=== PATIENT | female | born 1940 | race Caucasian/White ===

== ENCOUNTER 2017-04-08 04:04 | Inpatient (IN) | payer MEDICARE, MEDICAID ==
[2017-04-08] VITALS (10 sets, daily range): BP systolic 89–124; BP diastolic 49–94
[~2017-04-08] VITALS: Ht 154.9 cm; Wt 78.0 kg
[~2017-04-08 04:04] MED LIST: ALPR0.25 GT; APIX5TAB OR; CARV12.544 PO; FOLITAB45 OR; HYDR-4683 GT; PAR20T GT; TIOTCAP INH
[2017-04-08] MEDS ORDERED: ACETAMINOPHEN 650 MG RECT SUPP PR ONE (04:15)
[2017-04-08 05:23] LABS: Eosinophils # (auto) 0.1 uL; Eosinophils % (auto) 0.7 % (0.0-7.0); Nucleated Red Blood Cells % 0.1 %
[2017-04-08 05:27] LABS: Basophils # (auto) 0.2 uL; Hemoglobin 13.3 g/dL (12.2-16.2); Lymphocytes # (auto) 0.9 uL; Lymphocytes % (auto) 4.6 % (10.0-50.0); Mean Corpuscular Hemoglobin 25.7 pg (28.0-32.0); Mean Corpuscular Hgb Conc. 32.4 g/dL (32.0-36.0); Mean Corpuscular Volume 79.3 fL (80.0-100.0); Monocytes # (auto) 0.6 uL; Monocytes % (auto) 3.4 % (0.0-12.0); Neutrophils # (auto) 16.8 uL; Neutrophils % (auto) 90.3 % (37.0-80.0); Platelet Count (auto) 212 10^3/uL (140-450); Red Blood Cells 5.17 10^6/uL (4.0-5.20); Red Cell Distribution Width 18.5 % (11.8-14.3); White Blood Cell 18.6 10^3/uL (4.4-10.8)
[2017-04-08 05:32] LABS: Albumin 3.1 g/dL (3.4-5.0); Bilirubin, Total 0.4 mg/dL (0.2-1.0); Potassium 3.8 mmol/L (3.5-5.1)
[2017-04-08 05:51] LABS: Urine Bacteria MOD /hpf (None Seen); Urine Blood 2+ /uL (Negative); Urine Specific Gravity 1.007 (1.001-1.035); Urine WBC 199 /hpf (0 - 5); Urine WBC Clumps PRESENT /hpf (None Seen)
[2017-04-08] MEDS ORDERED: cefTRIAXone 1GM/10ml IVPUSH 10 ML IV ONE (09:30)
[2017-04-08] MEDS ORDERED: ONDANSETRON HCL 4 MG/2 ML VIAL IV PRN (09:45)
[2017-04-08] MEDS ORDERED: ALPRAZolam 0.25 MG TAB PO PRN (09:45)
[2017-04-08] MEDS ORDERED: NITROGLYCERIN 0.4 MG SL TAB SL PRN (09:45)
[2017-04-08] MEDS ORDERED: SODIUM CHLORIDE 0.9% 1,000 ML IV ONE (09:45)
[2017-04-08] MEDS ORDERED: ARTIFICIAL TEARS 15ml EACHEYE PRN (09:45)
[2017-04-08] MEDS ORDERED: MORPHINE SULFATE 10 MG/ML INJ 1ML SDV IV PRN ×2 (09:45)
[2017-04-08] MEDS ORDERED: PANTOPRAZOLE 40 MG TAB PO SCH (10:00)
[2017-04-08] MEDS: prednisoLONE ACETATE 1% OPTH SUSP 5ML RIGHTEYE SCH ×2 (10:30→22:07)
[2017-04-08] MEDS: PARoxetine 20 MG TAB PO SCH (10:30)
[2017-04-08] MEDS: APIXABAN 2.5 MG TAB GT SCH ×2 (10:30→22:07)
[2017-04-08] MEDS ORDERED: IPRA0.03 (10:41)
[2017-04-08] MEDS ORDERED: LACTCAP35 OR (10:41)
[2017-04-08] MEDS ORDERED: MULTTAB99 GT (10:41)
[2017-04-08] MEDS ORDERED: DOCU60SY PO (10:41)
[2017-04-08] MEDS ORDERED: CRAN600T OR (10:41)
[2017-04-08] MEDS ORDERED: PRED1SUS3 OP (10:41)
[2017-04-08] MEDS ORDERED: BISA-51 PO (10:41)
[2017-04-08] MEDS ORDERED: ACE30IS IN (10:41)
[2017-04-08] MEDS ORDERED: FAM20T PO (10:41)
[2017-04-08] MEDS ORDERED: AML5T PO (10:41)
[2017-04-08] MEDS ORDERED: ALBU1.257 IN (10:41)
[2017-04-08] MEDS ORDERED: MAGNSUS71 PO (10:41)
[2017-04-08] MEDS ORDERED: BIMA0.01 RIGHTEYE (10:41)
[2017-04-08] MEDS ORDERED: BRIN1SUS6 OP (10:41)
[2017-04-08] MEDS ORDERED: FOLITAB22 PO (10:41)
[2017-04-08 10:55] LABS: Cholesterol 128 mg/dL (< 200); HDL Cholesterol 48 mg/dL (40-59); LDL Cholesterol 69 mg/dL (< 100); Triglycerides 81 mg/dL (< 150)
[2017-04-08] MEDS: OMEPRAZOLE 20MG/10ML ORAL SUSP GT SCH (11:17)
[2017-04-08] MEDS: ACETYLCYSTEINE 10 %(100MG/ML) SOL 4ML NEB SCH ×2 (14:00→21:51)
[2017-04-08] MEDS ORDERED: VANCOMYCIN PER PHARMACY 0 MG IV SCH (14:45)
[2017-04-08] MEDS: IPRATROPIUM BROM 0.5 MG/2.5ML INH SOL NEB PRN ×2 (14:47→21:51)
[2017-04-08] MEDS: ALBUTEROL SULF 2.5 MG/0.5ML(0.5%) NEB SOLN NEB PRN ×2 (14:47→21:51)
[2017-04-08] MEDS: PIPERACILLIN-TAZOB 3.375GM 50 ML IV SCH ×2 (17:40→23:00)
[2017-04-08] MEDS: VANCOMYCIN 1,250 MG in D5W 5% 250 ML IV SCH (18:58)
[2017-04-09] VITALS (12 sets, daily range): BP systolic 90–121; BP diastolic 39–69
[2017-04-09 04:24] LABS: Basophils # (auto) 0.1 uL; Eosinophils # (auto) 0.3 uL; Lymphocytes # (auto) 1.1 uL; Lymphocytes % (auto) 10.5 % (10.0-50.0); Neutrophils # (auto) 8.6 uL
[2017-04-09 04:26] LABS: Basophils % (auto) 0.6 % (0.0-2.0); Eosinophils % (auto) 3.1 % (0.0-7.0); Hematocrit 35.2 % (36.0-46.0); Hemoglobin 11.4 g/dL (12.2-16.2); Mean Corpuscular Hgb Conc. 32.5 g/dL (32.0-36.0); Mean Corpuscular Volume 79.9 fL (80.0-100.0); Monocytes # (auto) 0.8 uL; Monocytes % (auto) 7.1 % (0.0-12.0); Neutrophils % (auto) 78.7 % (37.0-80.0); Platelet Count (auto) 186 10^3/uL (140-450); Red Cell Distribution Width 17.8 % (11.8-14.3)
[2017-04-09 04:39] LABS: INR 1.18 (0.9-1.15); Partial Thromboplastin Time 30.3 sec (22.64-33.71); Prothrombin Time 12.9 sec (9.37-12.3)
[2017-04-09 04:51] LABS: BUN/Creatinine Ratio 56.8; Calcium 8.5 mg/dL (8.5-10.1); Potassium 3.5 mmol/L (3.5-5.1)
[2017-04-09] MEDS: PIPERACILLIN-TAZOB 3.375GM 50 ML IV SCH ×4 (05:38→23:00)
[2017-04-09] MEDS: ACETYLCYSTEINE 10 %(100MG/ML) SOL 4ML NEB SCH ×3 (06:20→22:04)
[2017-04-09] MEDS ORDERED: cefTRIAXone 1GM/10ml IVPUSH 10 ML IV SCH (09:00)
[2017-04-09] MEDS: PARoxetine 20 MG TAB PO SCH (10:40)
[2017-04-09] MEDS: OMEPRAZOLE 20MG/10ML ORAL SUSP GT SCH (10:40)
[2017-04-09] MEDS: APIXABAN 2.5 MG TAB GT SCH ×2 (10:40→22:00)
[2017-04-09] MEDS: prednisoLONE ACETATE 1% OPTH SUSP 5ML RIGHTEYE SCH ×2 (10:40→22:00)
[2017-04-09] MEDS: ALBUTEROL SULF 2.5 MG/0.5ML(0.5%) NEB SOLN NEB PRN ×2 (14:40→22:42)
[2017-04-09] MEDS ORDERED: VANCOMYCIN 1,250 MG in D5W 5% 250 ML IV SCH (18:00)
[2017-04-09] MEDS: VANCOMYCIN 1,250 MG in D5W 5% 250 ML IV SCH (19:44)
[2017-04-09] MEDS ORDERED: LORazepam 2MG/ML-1ML VIAL IV ONE (22:00)
[2017-04-09] MEDS ORDERED: LORazepam 2MG/ML-1ML VIAL ONE (22:17)
[2017-04-09] MEDS: IPRATROPIUM BROM 0.5 MG/2.5ML INH SOL NEB PRN (22:42)
[2017-04-10] VITALS (9 sets, daily range): BP systolic 110–145; BP diastolic 35–75
[2017-04-10] MEDS: PIPERACILLIN-TAZOB 3.375GM 50 ML IV SCH ×4 (05:12→21:57)
[2017-04-10] MEDS: ALBUTEROL SULF 2.5 MG/0.5ML(0.5%) NEB SOLN NEB PRN ×3 (06:08→22:53)
[2017-04-10] MEDS: IPRATROPIUM BROM 0.5 MG/2.5ML INH SOL NEB PRN ×3 (06:09→22:53)
[2017-04-10] MEDS: ACETYLCYSTEINE 10 %(100MG/ML) SOL 4ML NEB SCH ×3 (06:09→22:53)
[2017-04-10] MEDS: prednisoLONE ACETATE 1% OPTH SUSP 5ML RIGHTEYE SCH ×2 (10:05→21:57)
[2017-04-10] MEDS: HYDROcodone-ACET 5/325MG TAB PO PRN (10:05)
[2017-04-10] MEDS: APIXABAN 2.5 MG TAB GT SCH ×2 (10:05→21:57)
[2017-04-10] MEDS: PARoxetine 20 MG TAB PO SCH (10:05)
[2017-04-10] MEDS: OMEPRAZOLE 20MG/10ML ORAL SUSP GT SCH (10:05)
[2017-04-10] MEDS: VANCOMYCIN 1,250 MG in D5W 5% 250 ML IV SCH (19:32)
[2017-04-11] MEDS: PIPERACILLIN-TAZOB 3.375GM 50 ML IV SCH (04:38)
[2017-04-11 04:53] VITALS: BP 142/57
[2017-04-11 05:46] LABS: Eosinophils # (auto) 0.3 uL; Mean Corpuscular Volume 80.2 fL (80.0-100.0); Monocytes # (auto) 0.7 uL
[2017-04-11 05:48] LABS: Basophils # (auto) 0.1 uL; Basophils % (auto) 0.7 % (0.0-2.0); Eosinophils % (auto) 2.9 % (0.0-7.0); Hematocrit 36.6 % (36.0-46.0); Hemoglobin 11.8 g/dL (12.2-16.2); Lymphocytes # (auto) 0.9 uL; Lymphocytes % (auto) 9.1 % (10.0-50.0); Mean Corpuscular Hemoglobin 25.8 pg (28.0-32.0); Mean Corpuscular Hgb Conc. 32.2 g/dL (32.0-36.0); Monocytes % (auto) 6.8 % (0.0-12.0); Neutrophils # (auto) 7.8 uL; Neutrophils % (auto) 80.5 % (37.0-80.0); Platelet Count (auto) 226 10^3/uL (140-450); Red Blood Cells 4.56 10^6/uL (4.0-5.20); White Blood Cell 9.7 10^3/uL (4.4-10.8)
[2017-04-11 06:03] LABS: BUN/Creatinine Ratio 32.6
[2017-04-11] MEDS: ACETYLCYSTEINE 10 %(100MG/ML) SOL 4ML NEB SCH ×3 (07:00→22:05)
[2017-04-11] MEDS: ALBUTEROL SULF 2.5 MG/0.5ML(0.5%) NEB SOLN NEB PRN ×3 (07:00→22:05)
[2017-04-11] MEDS: IPRATROPIUM BROM 0.5 MG/2.5ML INH SOL NEB PRN ×3 (07:00→22:05)
[2017-04-11] MEDS ORDERED: MEROPENEM 1gm/20ml IVPUSH 20 ML IV ONE (08:15)
[2017-04-11 09:00] VITALS: BP 130/75
[2017-04-11] MEDS: OMEPRAZOLE 20MG/10ML ORAL SUSP GT SCH (10:00)
[2017-04-11] MEDS: prednisoLONE ACETATE 1% OPTH SUSP 5ML RIGHTEYE SCH ×2 (10:00→22:21)
[2017-04-11] MEDS: APIXABAN 2.5 MG TAB GT SCH ×2 (11:39→22:20)
[2017-04-11] MEDS: PARoxetine 20 MG TAB PO SCH (11:39)
[2017-04-11 13:00] VITALS: BP 143/68
[2017-04-11] MEDS: MEROPENEM 1gm/20ml IVPUSH 20 ML IV SCH ×2 (14:14→22:21)
[2017-04-11 17:00] VITALS: BP 154/78
[2017-04-11] MEDS: VANCOMYCIN 1,250 MG in D5W 5% 250 ML IV SCH (17:53)
[2017-04-11] MEDS: ACETAMINOPHEN 500 MG TAB PO PRN (17:54)
[2017-04-11 18:17] LABS: Urine Bacteria FEW /hpf (None Seen); Urine Blood 2+ /uL (Negative); Urine Mucus FEW (None Seen); Urine Specific Gravity 1.022 (1.001-1.035); Urine WBC 255 /hpf (0 - 5)
[2017-04-11 20:00] VITALS: BP 135/73
[2017-04-11 22:00] VITALS: BP 135/73
[2017-04-12] VITALS (9 sets, daily range): BP systolic 129–159; BP diastolic 44–80
[2017-04-12 05:39] LABS: Basophils # (auto) 0.1 uL; Eosinophils # (auto) 0.3 uL; Monocytes # (auto) 0.7 uL
[2017-04-12 05:43] LABS: Basophils % (auto) 0.7 % (0.0-2.0); Eosinophils % (auto) 2.3 % (0.0-7.0); Hematocrit 36.9 % (36.0-46.0); Hemoglobin 11.9 g/dL (12.2-16.2); Lymphocytes # (auto) 0.9 uL; Lymphocytes % (auto) 7.9 % (10.0-50.0); Mean Corpuscular Hemoglobin 25.6 pg (28.0-32.0); Mean Corpuscular Hgb Conc. 32.1 g/dL (32.0-36.0); Mean Corpuscular Volume 79.9 fL (80.0-100.0); Monocytes % (auto) 6.5 % (0.0-12.0); Neutrophils # (auto) 9.1 uL; Neutrophils % (auto) 82.6 % (37.0-80.0); Platelet Count (auto) 232 10^3/uL (140-450); Red Blood Cells 4.62 10^6/uL (4.0-5.20); Red Cell Distribution Width 17.7 % (11.8-14.3); White Blood Cell 11.1 10^3/uL (4.4-10.8)
[2017-04-12 06:04] LABS: BUN/Creatinine Ratio 28.9
[2017-04-12 06:08] LABS: Potassium 2.8 mmol/L (3.5-5.1)
[2017-04-12] MEDS: MEROPENEM 1gm/20ml IVPUSH 20 ML IV SCH ×3 (06:19→22:20)
[2017-04-12] MEDS: ALBUTEROL SULF 2.5 MG/0.5ML(0.5%) NEB SOLN NEB PRN ×3 (06:40→22:17)
[2017-04-12] MEDS: IPRATROPIUM BROM 0.5 MG/2.5ML INH SOL NEB PRN ×3 (06:40→22:17)
[2017-04-12] MEDS: ACETYLCYSTEINE 10 %(100MG/ML) SOL 4ML NEB SCH ×3 (06:41→22:17)
[2017-04-12] MEDS ORDERED: PANTOPRAZOLE 40 MG TAB PO SCH (10:00)
[2017-04-12] MEDS: prednisoLONE ACETATE 1% OPTH SUSP 5ML RIGHTEYE SCH ×2 (10:00→22:19)
[2017-04-12] MEDS ORDERED: OMEPRAZOLE 20MG/10ML ORAL SUSP GT ONE (10:15)
[2017-04-12] MEDS: PARoxetine 20 MG TAB PO SCH (10:24)
[2017-04-12] MEDS: APIXABAN 2.5 MG TAB GT SCH ×2 (10:24→22:19)
[2017-04-12] MEDS: POTASSIUM CHL 10% (20 MEQ/15ML) 15ml ORAL SOLN GT SCH ×3 (10:24→14:32)
[2017-04-12] MEDS: Fibersource Hn 1 Liter GT SCH (10:26)
[2017-04-12] MEDS ORDERED: POTASSIUM CHL 10% (20 MEQ/15ML) 15ml ORAL SOLN PO ONE (11:00)
[2017-04-12] MEDS: HYDROcodone-ACET 5/325MG TAB PO PRN (17:31)
[2017-04-12] MEDS ORDERED: VANCOMYCIN 1GM/250ML 250 ML IV SCH (18:00)
[2017-04-12] MEDS: ACETAMINOPHEN 500 MG TAB PO PRN (22:19)
[2017-04-13 04:48] VITALS: BP 110/64
[2017-04-13] MEDS: ALBUTEROL SULF 2.5 MG/0.5ML(0.5%) NEB SOLN NEB PRN ×3 (05:51→22:05)
[2017-04-13] MEDS: IPRATROPIUM BROM 0.5 MG/2.5ML INH SOL NEB PRN ×2 (05:51→22:05)
[2017-04-13] MEDS: ACETYLCYSTEINE 10 %(100MG/ML) SOL 4ML NEB SCH ×3 (05:52→22:05)
[2017-04-13 05:56] LABS: Eosinophils # (auto) 0.2 uL; Eosinophils % (auto) 1.5 % (0.0-7.0)
[2017-04-13 05:59] LABS: Basophils # (auto) 0.1 uL; Hematocrit 37.1 % (36.0-46.0); Hemoglobin 11.9 g/dL (12.2-16.2); Lymphocytes # (auto) 1.2 uL; Lymphocytes % (auto) 8.9 % (10.0-50.0); Mean Corpuscular Hemoglobin 25.3 pg (28.0-32.0); Mean Corpuscular Volume 79.1 fL (80.0-100.0); Monocytes # (auto) 1.1 uL; Monocytes % (auto) 8.2 % (0.0-12.0); Neutrophils # (auto) 11.2 uL; Neutrophils % (auto) 80.4 % (37.0-80.0); Platelet Count (auto) 245 10^3/uL (140-450); Red Blood Cells 4.69 10^6/uL (4.0-5.20); Red Cell Distribution Width 18.2 % (11.8-14.3)
[2017-04-13] MEDS: MEROPENEM 1gm/20ml IVPUSH 20 ML IV SCH ×3 (05:59→21:12)
[2017-04-13] MEDS: HYDROcodone-ACET 5/325MG TAB PO PRN (06:00)
[2017-04-13 06:16] LABS: Calcium 9.3 mg/dL (8.5-10.1); Potassium 4.1 mmol/L (3.5-5.1)
[2017-04-13 06:19] LABS: BUN/Creatinine Ratio 32.1
[2017-04-13 09:00] VITALS: BP 110/48
[2017-04-13] MEDS: PARoxetine 20 MG TAB PO SCH (10:27)
[2017-04-13] MEDS: APIXABAN 2.5 MG TAB GT SCH ×2 (10:27→21:20)
[2017-04-13] MEDS: OMEPRAZOLE 20MG/10ML ORAL SUSP GT SCH (10:28)
[2017-04-13] MEDS: prednisoLONE ACETATE 1% OPTH SUSP 5ML RIGHTEYE SCH ×3 (10:29→21:28)
[2017-04-13 12:33] VITALS: BP 137/53
[2017-04-13 16:50] VITALS: BP 130/85
[2017-04-13 20:00] VITALS: BP 129/39
[2017-04-13 22:00] VITALS: BP 129/39
[2017-04-14 05:00] VITALS: BP 123/75
[2017-04-14] MEDS: ALBUTEROL SULF 2.5 MG/0.5ML(0.5%) NEB SOLN NEB PRN ×3 (05:40→18:16)
[2017-04-14] MEDS: ACETYLCYSTEINE 10 %(100MG/ML) SOL 4ML NEB SCH ×2 (05:40→15:26)
[2017-04-14] MEDS: MEROPENEM 1gm/20ml IVPUSH 20 ML IV SCH ×3 (06:19→22:30)
[2017-04-14 07:21] VITALS: BP 123/48
[2017-04-14 08:52] LABS: Basophils # (auto) 0.1 uL; Eosinophils # (auto) 0.4 uL; Hemoglobin 11.4 g/dL (12.2-16.2); Lymphocytes # (auto) 1.4 uL; Mean Corpuscular Hgb Conc. 31.3 g/dL (32.0-36.0)
[2017-04-14 08:53] LABS: Basophils % (auto) 0.9 % (0.0-2.0); Eosinophils % (auto) 3.3 % (0.0-7.0); Hematocrit 36.5 % (36.0-46.0); Lymphocytes % (auto) 12.2 % (10.0-50.0); Mean Corpuscular Volume 79.8 fL (80.0-100.0); Monocytes # (auto) 0.7 uL; Monocytes % (auto) 6.5 % (0.0-12.0); Neutrophils # (auto) 8.7 uL; Neutrophils % (auto) 77.1 % (37.0-80.0); Platelet Count (auto) 227 10^3/uL (140-450); Red Blood Cells 4.57 10^6/uL (4.0-5.20); Red Cell Distribution Width 18.1 % (11.8-14.3); White Blood Cell 11.3 10^3/uL (4.4-10.8)
[2017-04-14] MEDS: PARoxetine 20 MG TAB PO SCH (10:03)
[2017-04-14] MEDS: APIXABAN 2.5 MG TAB GT SCH ×2 (10:03→22:29)
[2017-04-14] MEDS: OMEPRAZOLE 20MG/10ML ORAL SUSP GT SCH (10:04)
[2017-04-14] MEDS: prednisoLONE ACETATE 1% OPTH SUSP 5ML RIGHTEYE SCH ×2 (10:04→22:30)
[2017-04-14 12:10] VITALS: BP 108/54
[2017-04-14] MEDS: HYDROcodone-ACET 5/325MG TAB PO PRN (15:14)
[2017-04-14] MEDS: IPRATROPIUM BROM 0.5 MG/2.5ML INH SOL NEB PRN ×2 (15:26→18:16)
[2017-04-14 17:01] VITALS: BP 94/68
[2017-04-14 20:58] VITALS: BP 94/68
[2017-04-14 22:15] VITALS: BP 83/43
[2017-04-15] VITALS (9 sets, daily range): BP systolic 121–142; BP diastolic 53–98
[2017-04-15] MEDS: ACETYLCYSTEINE 10 %(100MG/ML) SOL 4ML NEB SCH ×4 (00:20→21:56)
[2017-04-15] MEDS: ALBUTEROL SULF 2.5 MG/0.5ML(0.5%) NEB SOLN NEB PRN ×2 (00:24→21:56)
[2017-04-15] MEDS: IPRATROPIUM BROM 0.5 MG/2.5ML INH SOL NEB PRN ×3 (00:24→13:57)
[2017-04-15] MEDS: MEROPENEM 1gm/20ml IVPUSH 20 ML IV SCH ×4 (05:17→23:20)
[2017-04-15] MEDS: HYDROcodone-ACET 5/325MG TAB PO PRN (08:03)
[2017-04-15] MEDS: PARoxetine 20 MG TAB PO SCH (09:34)
[2017-04-15] MEDS: OMEPRAZOLE 20MG/10ML ORAL SUSP GT SCH (09:34)
[2017-04-15] MEDS: APIXABAN 2.5 MG TAB GT SCH ×2 (09:34→22:20)
[2017-04-15] MEDS: prednisoLONE ACETATE 1% OPTH SUSP 5ML RIGHTEYE SCH ×2 (09:36→22:29)
[2017-04-15] MEDS: HYDROcodone-ACET 10/325MG TAB PO PRN ×2 (13:17→17:19)
[2017-04-15] MEDS: Fibersource Hn 1 Liter GT SCH (22:00)
[2017-04-16 06:02] VITALS: BP 122/49
[2017-04-16] MEDS: ALBUTEROL SULF 2.5 MG/0.5ML(0.5%) NEB SOLN NEB PRN ×3 (07:24→19:46)
[2017-04-16] MEDS: IPRATROPIUM BROM 0.5 MG/2.5ML INH SOL NEB PRN ×2 (07:24→19:46)
[2017-04-16] MEDS: ACETYLCYSTEINE 10 %(100MG/ML) SOL 4ML NEB SCH ×3 (07:24→19:46)
[2017-04-16 09:00] VITALS: BP 143/50
[2017-04-16] MEDS: OMEPRAZOLE 20MG/10ML ORAL SUSP GT SCH (10:52)
[2017-04-16] MEDS: prednisoLONE ACETATE 1% OPTH SUSP 5ML RIGHTEYE SCH ×2 (10:52→22:50)
[2017-04-16] MEDS: APIXABAN 2.5 MG TAB GT SCH ×2 (10:52→22:50)
[2017-04-16] MEDS: PARoxetine 20 MG TAB PO SCH (10:52)
[2017-04-16 13:00] VITALS: BP 137/48
[2017-04-16] MEDS: MEROPENEM 1gm/20ml IVPUSH 20 ML IV SCH ×2 (14:22→22:50)
[2017-04-16 17:00] VITALS: BP 144/47
[2017-04-16 22:00] VITALS: BP 135/68
[2017-04-16] MEDS: ACETAMINOPHEN 500 MG TAB PO PRN (22:49)
[2017-04-17] VITALS (7 sets, daily range): BP systolic 118–141; BP diastolic 47–89
[2017-04-17] MEDS: MEROPENEM 1gm/20ml IVPUSH 20 ML IV SCH ×3 (05:27→22:01)
[2017-04-17] MEDS: ACETYLCYSTEINE 10 %(100MG/ML) SOL 4ML NEB SCH ×3 (06:09→22:22)
[2017-04-17] MEDS: ALBUTEROL SULF 2.5 MG/0.5ML(0.5%) NEB SOLN NEB PRN ×3 (06:09→22:22)
[2017-04-17] MEDS: IPRATROPIUM BROM 0.5 MG/2.5ML INH SOL NEB PRN ×3 (06:09→22:22)
[2017-04-17] MEDS: APIXABAN 2.5 MG TAB GT SCH ×2 (10:14→22:00)
[2017-04-17] MEDS: OMEPRAZOLE 20MG/10ML ORAL SUSP GT SCH (10:14)
[2017-04-17] MEDS: PARoxetine 20 MG TAB PO SCH (10:14)
[2017-04-17] MEDS: prednisoLONE ACETATE 1% OPTH SUSP 5ML RIGHTEYE SCH ×2 (10:27→22:00)
[2017-04-17] MEDS: ACETAMINOPHEN 500 MG TAB PO PRN ×2 (12:29→17:54)
[2017-04-17] MEDS: Fibersource Hn 1 Liter GT SCH (23:37)
[2017-04-18 05:00] VITALS: BP 148/66
[2017-04-18 05:33] LABS: Basophils # (auto) 0.1 uL; Hemoglobin 11.5 g/dL (12.2-16.2); Monocytes # (auto) 0.7 uL
[2017-04-18] MEDS: MEROPENEM 1gm/20ml IVPUSH 20 ML IV SCH ×3 (05:37→21:54)
[2017-04-18 05:41] LABS: Basophils % (auto) 0.6 % (0.0-2.0); Eosinophils # (auto) 0.2 uL; Eosinophils % (auto) 1.5 % (0.0-7.0); Lymphocytes # (auto) 1.2 uL; Lymphocytes % (auto) 8.2 % (10.0-50.0); Mean Corpuscular Hemoglobin 25.5 pg (28.0-32.0); Mean Corpuscular Hgb Conc. 31.9 g/dL (32.0-36.0); Mean Corpuscular Volume 79.9 fL (80.0-100.0); Monocytes % (auto) 4.6 % (0.0-12.0); Neutrophils # (auto) 12.9 uL; Neutrophils % (auto) 85.1 % (37.0-80.0); Platelet Count (auto) 250 10^3/uL (140-450); Red Blood Cells 4.51 10^6/uL (4.0-5.20); White Blood Cell 15.2 10^3/uL (4.4-10.8)
[2017-04-18 05:55] LABS: BUN/Creatinine Ratio 56.3; Calcium 8.8 mg/dL (8.5-10.1); Potassium 3.6 mmol/L (3.5-5.1)
[2017-04-18] MEDS: ACETYLCYSTEINE 10 %(100MG/ML) SOL 4ML NEB SCH ×3 (06:13→22:40)
[2017-04-18] MEDS: ALBUTEROL SULF 2.5 MG/0.5ML(0.5%) NEB SOLN NEB PRN ×3 (06:13→22:40)
[2017-04-18] MEDS: IPRATROPIUM BROM 0.5 MG/2.5ML INH SOL NEB PRN ×3 (06:13→22:40)
[2017-04-18 09:02] VITALS: BP 115/51
[2017-04-18] MEDS: PARoxetine 20 MG TAB PO SCH (11:46)
[2017-04-18] MEDS: APIXABAN 2.5 MG TAB GT SCH ×2 (11:46→21:54)
[2017-04-18] MEDS: prednisoLONE ACETATE 1% OPTH SUSP 5ML RIGHTEYE SCH ×2 (11:46→21:55)
[2017-04-18] MEDS: OMEPRAZOLE 20MG/10ML ORAL SUSP GT SCH (11:46)
[2017-04-18] MEDS: ACETAMINOPHEN 500 MG TAB PO PRN (11:48)
[2017-04-18 12:28] VITALS: BP 104/63
[2017-04-18] MEDS ORDERED: D5W/SOD CHL 0.45% 1,000 ML IV ONE (15:45)
[2017-04-18] MEDS ORDERED: VANCOMYCIN PER PHARMACY 0 MG IV SCH (15:45)
[2017-04-18] MEDS ORDERED: VANCOMYCIN 1GM/250ML 250 ML IV ONE (16:30)
[2017-04-18 17:06] VITALS: BP 122/46
[2017-04-18] MEDS ORDERED: MORPHINE SULFATE 4 MG/ML SYR/VIAL IV PRN (19:45)
[2017-04-18 22:00] VITALS: BP_SYST 106; BP_DIAS 5; BP_DIAS 59
[2017-04-19] MEDS: VANCOMYCIN 1GM/250ML 250 ML IV SCH ×2 (04:26→17:27)
[2017-04-19 05:14] VITALS: BP 119/47
[2017-04-19] MEDS: MEROPENEM 1gm/20ml IVPUSH 20 ML IV SCH ×3 (05:29→21:32)
[2017-04-19] MEDS: ALBUTEROL SULF 2.5 MG/0.5ML(0.5%) NEB SOLN NEB PRN ×3 (06:13→19:07)
[2017-04-19] MEDS: ACETYLCYSTEINE 10 %(100MG/ML) SOL 4ML NEB SCH ×3 (06:13→19:07)
[2017-04-19] MEDS: IPRATROPIUM BROM 0.5 MG/2.5ML INH SOL NEB PRN ×3 (06:13→19:07)
[2017-04-19] MEDS: HYDROcodone-ACET 10/325MG TAB PO PRN ×3 (07:25→16:15)
[2017-04-19 08:58] VITALS: BP 85/67
[2017-04-19] MEDS: APIXABAN 2.5 MG TAB GT SCH ×2 (09:55→21:32)
[2017-04-19] MEDS: prednisoLONE ACETATE 1% OPTH SUSP 5ML RIGHTEYE SCH ×2 (09:56→21:32)
[2017-04-19] MEDS: OMEPRAZOLE 20MG/10ML ORAL SUSP GT SCH (09:56)
[2017-04-19] MEDS: PARoxetine 20 MG TAB PO SCH (09:56)
[2017-04-19] MEDS: MORPHINE SULFATE 4 MG/ML SYR/VIAL IV PRN ×2 (10:35→14:25)
[2017-04-19 13:00] VITALS: BP 117/60
[2017-04-19 16:32] VITALS: BP 108/71
[2017-04-19 22:00] VITALS: BP 112/75
[2017-04-20] VITALS (7 sets, daily range): BP systolic 99–125; BP diastolic 46–75
[2017-04-20] MEDS: Fibersource Hn 1 Liter GT SCH (00:51)
[2017-04-20] MEDS: VANCOMYCIN 1GM/250ML 250 ML IV SCH (05:00)
[2017-04-20] MEDS: MEROPENEM 1gm/20ml IVPUSH 20 ML IV SCH ×2 (05:42→15:10)
[2017-04-20] MEDS: ALBUTEROL SULF 2.5 MG/0.5ML(0.5%) NEB SOLN NEB PRN ×2 (07:27→12:08)
[2017-04-20] MEDS: ACETYLCYSTEINE 10 %(100MG/ML) SOL 4ML NEB SCH (07:27)
[2017-04-20] MEDS: IPRATROPIUM BROM 0.5 MG/2.5ML INH SOL NEB PRN ×2 (07:27→12:08)
[2017-04-20] MEDS: MORPHINE SULFATE 4 MG/ML SYR/VIAL IV PRN ×2 (07:30→11:39)
[2017-04-20] MEDS: PARoxetine 20 MG TAB PO SCH (08:53)
[2017-04-20] MEDS: APIXABAN 2.5 MG TAB GT SCH (08:54)
[2017-04-20] MEDS: HYDROcodone-ACET 10/325MG TAB PO PRN ×3 (08:54→17:14)
[2017-04-20] MEDS: prednisoLONE ACETATE 1% OPTH SUSP 5ML RIGHTEYE SCH (11:38)
[2017-04-20] MEDS: OMEPRAZOLE 20MG/10ML ORAL SUSP GT SCH (11:38)
[2017-04-20] MEDS ORDERED: SODIUM CHLORIDE 0.9 % NEB SOLN 3ML NEB ONE (14:46)
[2017-04-20] MEDS ORDERED: VANCOMYCIN 1GM/250ML 250 ML IV SCH (17:00)
== END 2017-04-20 19:30 | disposition home or self-care (01) | DRG 870 ==
LOC: EDBD 04:04 → ER 04:09 → OVERFLOW 04:10 → TELE-CENTR 04-10 14:10
PROVIDERS: ADMIT Internal Medicine; ATTEND Internal Medicine Cardiovascular Disease
PROC: 5A1955Z Respiratory Ventilation, Greater than 96 Consecutive Hours (ICD-10-PCS; principal; 2017-04-08)
DX: A41.52 Sepsis due to Pseudomonas (principal); J96.90 Respiratory failure, unspecified, unspecified whether with hypoxia or hypercapnia; J15.1 Pneumonia due to Pseudomonas; Z99.11 Dependence on respirator [ventilator] status; E44.0 Moderate protein-calorie malnutrition; J96.10 Chronic respiratory failure, unspecified whether with hypoxia or hypercapnia; E87.0 Hyperosmolality and hypernatremia; Z93.0 Tracheostomy status; D68.59 Other primary thrombophilia; I50.32 Chronic diastolic (congestive) heart failure; J44.0 Chronic obstructive pulmonary disease with (acute) lower respiratory infection; N39.0 Urinary tract infection, site not specified; G35 Multiple sclerosis; A41.51 Sepsis due to Escherichia coli [E. coli]; Z16.12 Extended spectrum beta lactamase (ESBL) resistance; H74.8X1 Other specified disorders of right middle ear and mastoid; I48.91 Unspecified atrial fibrillation; E86.1 Hypovolemia; I11.0 Hypertensive heart disease with heart failure; E66.9 Obesity, unspecified; F32.9 Major depressive disorder, single episode, unspecified; F41.9 Anxiety disorder, unspecified; Z66 Do not resuscitate; E87.6 Hypokalemia; F03.90 Unspecified dementia, unspecified severity, without behavioral disturbance, psychotic disturbance, mood disturbance, and anxiety; K21.9 Gastro-esophageal reflux disease without esophagitis; Z79.01 Long term (current) use of anticoagulants; Z79.899 Other long term (current) drug therapy; Z82.49 Family history of ischemic heart disease and other diseases of the circulatory system; Z93.1 Gastrostomy status; Z68.32 Body mass index [BMI] 32.0-32.9, adult; Z88.5 Allergy status to narcotic agent; Z88.2 Allergy status to sulfonamides; Z91.040 Latex allergy status; Z90.49 Acquired absence of other specified parts of digestive tract
CPT/HCPCS: 36415; 70450; 71045; 80048; 80053; 80061; 80202; 80320; 81001; 82962; 83605; 83880; 84443; 84484; 85025; 85610; 85730; 87040; 87070; 87076; 87077; 87081; 87086; 87088; 87186; 87205; 87400; 87493; 93005; 93306; 94002; 94003; 94640; 96361; 96374; 96375; 96379; G0378; J2405; J2543; J7060

== ENCOUNTER 2017-08-30 16:48 | Inpatient (IN) | payer MEDICARE, MEDICAID ==
[~2017-08-30] VITALS: Ht 154.9 cm; Wt 69.1 kg
[~2017-08-30 16:48] MED LIST changes: +ACE30IS IN; +ALBU1.257 IN; +AML5T PO; +BIMA0.01 RIGHTEYE; +BISA-51 PO; +BRIN1SUS6 OP; -CARV12.544 PO; +CRAN600T OR; +DOCU60SY PO; +FAM20T PO; +FOLITAB22 PO; +IPRA0.03; +LACTCAP35 OR; +MAGNSUS71 PO; +MULTTAB99 GT; +PRED1SUS3 OP; -TIOTCAP INH
[2017-08-30] MEDS ORDERED: SODIUM CHLORIDE 0.9% 1,000 ML IV ONE (18:13)
[2017-08-30 19:21] LABS: Basophils # (auto) 0 uL; Eosinophils # (auto) 0.3 uL; Mean Corpuscular Volume 78.6 fL (80.0-100.0)
[2017-08-30 19:24] LABS: Basophils % (auto) 0.4 % (0.0-2.0); Eosinophils % (auto) 2.6 % (0.0-7.0); Hematocrit 38.4 % (36.0-46.0); Hemoglobin 12.5 g/dL (12.2-16.2); Lymphocytes # (auto) 1.3 uL; Lymphocytes % (auto) 13.3 % (10.0-50.0); Mean Corpuscular Hemoglobin 25.5 pg (28.0-32.0); Mean Corpuscular Hgb Conc. 32.4 g/dL (32.0-36.0); Monocytes # (auto) 0.5 uL; Monocytes % (auto) 5.3 % (0.0-12.0); Neutrophils # (auto) 7.6 uL; Neutrophils % (auto) 78.4 % (37.0-80.0); Nucleated Red Blood Cells % 0.3 %; Platelet Count (auto) 225 10^3/uL (140-450); Red Blood Cells 4.89 10^6/uL (4.0-5.20); Red Cell Distribution Width 17.4 % (11.8-14.3); White Blood Cell 9.6 10^3/uL (4.4-10.8)
[2017-08-30 19:42] LABS: Albumin 2.9 g/dL (3.4-5.0); Calcium 8.6 mg/dL (8.5-10.1); Magnesium 2.1 mg/dL (1.6-2.6); Potassium 5.1 mmol/L (3.5-5.1)
[2017-08-30 19:45] LABS: Bilirubin, Total 0.3 mg/dL (0.2-1.0); Total Protein 8.5 g/dL (6.4-8.2)
[2017-08-30 20:54] VITALS: BP 102/60
[2017-08-30] MEDS ORDERED: NITROGLYCERIN 0.4 MG SL TAB SL PRN (23:45)
[2017-08-30] MEDS ORDERED: MORPHINE SULF(PF) 0.5MG/ML 10ML VIAL IV PRN (23:45)
[2017-08-30 23:58] LABS: Urine Bacteria MANY /hpf (None Seen); Urine Blood 1+ /uL (Negative); Urine Mucus FEW (None Seen); Urine Specific Gravity 1.018 (1.001-1.035); Urine WBC 2595 /hpf (0 - 5); Urine WBC Clumps PRESENT /hpf (None Seen)
[2017-08-31 00:45] VITALS: BP 142/70
[2017-08-31 04:59] VITALS: BP 125/56
[2017-08-31 09:00] VITALS: BP 136/59
[2017-08-31] MEDS ORDERED: METOCLOPRAMIDE HCL 10 MG TAB PO PRN (09:30)
[2017-08-31] MEDS ORDERED: HYDROcodone-ACET 5/325MG TAB GT PRN (09:30)
[2017-08-31] MEDS ORDERED: ALPRAZolam 0.5 MG TAB GT PRN (09:30)
[2017-08-31] MEDS ORDERED: DIPHENOXYLATE W/ATROPINE 2.5 MG TAB GT PRN (09:30)
[2017-08-31] MEDS: MULTIPLE VITAMIN TAB GT SCH (11:04)
[2017-08-31] MEDS: FOLIC ACID 1 MG TAB GT SCH (11:04)
[2017-08-31] MEDS: APIXABAN 2.5 MG TAB GT SCH ×2 (11:04→22:03)
[2017-08-31] MEDS: PARoxetine 20 MG TAB GT SCH (11:05)
[2017-08-31] MEDS: amLODIPine BESYLATE 5 MG TAB GT SCH (11:05)
[2017-08-31] MEDS: FAMOTIDINE 20 MG TAB GT SCH ×2 (11:06→22:03)
[2017-08-31 13:00] VITALS: BP_SYST 122; BP_SYST 132; BP_DIAS 45; BP_DIAS 60
[2017-08-31 20:00] VITALS: BP 136/65
[2017-08-31 22:00] VITALS: BP 136/65
[2017-09-01 04:38] VITALS: BP 136/51
[2017-09-01 09:00] VITALS: BP 116/55
[2017-09-01] MEDS: PARoxetine 20 MG TAB GT SCH (10:13)
[2017-09-01] MEDS: amLODIPine BESYLATE 5 MG TAB GT SCH (10:14)
[2017-09-01] MEDS: MULTIPLE VITAMIN TAB GT SCH (10:15)
[2017-09-01] MEDS: FAMOTIDINE 20 MG TAB GT SCH ×2 (10:15→22:03)
[2017-09-01] MEDS: FOLIC ACID 1 MG TAB GT SCH (10:15)
[2017-09-01] MEDS: APIXABAN 2.5 MG TAB GT SCH ×2 (10:15→22:03)
[2017-09-01 13:00] VITALS: BP 142/59
[2017-09-01] MEDS ORDERED: cefTAZidime 1 GM in SODIUM CHL 0.9% 50 ML IV SCH ×2 (14:00→14:45)
[2017-09-01] MEDS: PIPERACILLIN-TAZOB 3.375GM 100 ML IV SCH ×2 (15:58→22:03)
[2017-09-01 17:00] VITALS: BP 106/51
[2017-09-01 20:00] VITALS: BP 131/61
[2017-09-01 21:52] VITALS: BP 131/61
[2017-09-02] MEDS: PIPERACILLIN-TAZOB 3.375GM 100 ML IV SCH ×3 (04:08→17:24)
[2017-09-02 05:04] VITALS: BP 132/64
[2017-09-02 08:25] VITALS: BP 130/60
[2017-09-02] MEDS: FOLIC ACID 1 MG TAB GT SCH (10:52)
[2017-09-02] MEDS: amLODIPine BESYLATE 5 MG TAB GT SCH (10:53)
[2017-09-02] MEDS: MULTIPLE VITAMIN TAB GT SCH (10:53)
[2017-09-02] MEDS: APIXABAN 2.5 MG TAB GT SCH ×2 (10:53→22:39)
[2017-09-02] MEDS: PARoxetine 20 MG TAB GT SCH (10:53)
[2017-09-02] MEDS: FAMOTIDINE 20 MG TAB GT SCH ×2 (10:54→22:39)
[2017-09-02 11:49] VITALS: BP 132/65
[2017-09-02] MEDS ORDERED: LACTULOSE 20Gm/30ML SOLN GT PRN (16:15)
[2017-09-02] MEDS ORDERED: MILK OF MAGNESIA 30ML SUSP PO PRN (16:15)
[2017-09-02] MEDS ORDERED: BISACODYL 10 MG RECT SUPP PR PRN (16:15)
[2017-09-02 17:01] VITALS: BP 130/65
[2017-09-02 19:36] VITALS: BP 130/65
[2017-09-02 19:59] LABS: Basophils # (auto) 0.1 uL; Eosinophils # (auto) 0.3 uL; Hemoglobin 12.3 g/dL (12.2-16.2); Lymphocytes # (auto) 1.3 uL; Lymphocytes % (auto) 14.5 % (10.0-50.0); Neutrophils # (auto) 6.6 uL; White Blood Cell 8.8 10^3/uL (4.4-10.8)
[2017-09-02 20:01] LABS: Basophils % (auto) 0.6 % (0.0-2.0); Eosinophils % (auto) 3.3 % (0.0-7.0); Hematocrit 37.5 % (36.0-46.0); Mean Corpuscular Hemoglobin 25.6 pg (28.0-32.0); Mean Corpuscular Hgb Conc. 32.8 g/dL (32.0-36.0); Monocytes # (auto) 0.6 uL; Monocytes % (auto) 6.3 % (0.0-12.0); Neutrophils % (auto) 75.3 % (37.0-80.0); Nucleated Red Blood Cells % 0.1 %; Platelet Count (auto) 210 10^3/uL (140-450); Red Blood Cells 4.81 10^6/uL (4.0-5.20)
[2017-09-02 20:21] LABS: Albumin 2.7 g/dL (3.4-5.0); BUN/Creatinine Ratio 36.2; Calcium 8.3 mg/dL (8.5-10.1); Potassium 3.9 mmol/L (3.5-5.1)
[2017-09-02 20:24] LABS: Bilirubin, Total 0.3 mg/dL (0.2-1.0)
[2017-09-02 21:45] VITALS: BP 139/49
[2017-09-03] VITALS (8 sets, daily range): BP systolic 110–144; BP diastolic 61–77
[2017-09-03] MEDS: PIPERACILLIN-TAZOB 3.375GM 100 ML IV SCH ×4 (01:01→17:37)
[2017-09-03] MEDS: FOLIC ACID 1 MG TAB GT SCH (09:56)
[2017-09-03] MEDS: MULTIPLE VITAMIN TAB GT SCH (09:57)
[2017-09-03] MEDS: APIXABAN 2.5 MG TAB GT SCH ×2 (09:57→22:00)
[2017-09-03] MEDS: FAMOTIDINE 20 MG TAB GT SCH ×2 (09:57→22:00)
[2017-09-03] MEDS: amLODIPine BESYLATE 5 MG TAB GT SCH (09:57)
[2017-09-03] MEDS: PARoxetine 20 MG TAB GT SCH (09:58)
[2017-09-04] MEDS: PIPERACILLIN-TAZOB 3.375GM 100 ML IV SCH ×4 (00:03→17:45)
[2017-09-04 05:25] VITALS: BP 139/83
[2017-09-04 05:56] LABS: Basophils # (auto) 0.1 uL; Basophils % (auto) 0.9 % (0.0-2.0); Eosinophils # (auto) 0.2 uL; Eosinophils % (auto) 1.3 % (0.0-7.0); Hematocrit 39.3 % (36.0-46.0); Hemoglobin 12.4 g/dL (12.2-16.2); Lymphocytes # (auto) 1.2 uL; Lymphocytes % (auto) 7.9 % (10.0-50.0); Mean Corpuscular Hgb Conc. 31.6 g/dL (32.0-36.0); Mean Corpuscular Volume 79.3 fL (80.0-100.0); Monocytes # (auto) 0.8 uL; Monocytes % (auto) 5.1 % (0.0-12.0); Neutrophils % (auto) 84.8 % (37.0-80.0); Nucleated Red Blood Cells % 0.1 %; Platelet Count (auto) 218 10^3/uL (140-450); Red Blood Cells 4.96 10^6/uL (4.0-5.20); Red Cell Distribution Width 17.3 % (11.8-14.3); White Blood Cell 15.3 10^3/uL (4.4-10.8)
[2017-09-04 06:22] LABS: Albumin 2.6 g/dL (3.4-5.0); BUN/Creatinine Ratio 40.4; Potassium 3.7 mmol/L (3.5-5.1)
[2017-09-04 06:46] LABS: Bilirubin, Total 0.4 mg/dL (0.2-1.0); Total Protein 7.9 g/dL (6.4-8.2)
[2017-09-04 08:27] VITALS: BP 131/49
[2017-09-04] MEDS: APIXABAN 2.5 MG TAB GT SCH ×2 (10:42→23:18)
[2017-09-04] MEDS: FOLIC ACID 1 MG TAB GT SCH (10:42)
[2017-09-04] MEDS: FAMOTIDINE 20 MG TAB GT SCH ×2 (10:42→23:18)
[2017-09-04] MEDS: PARoxetine 20 MG TAB GT SCH (10:42)
[2017-09-04] MEDS: MULTIPLE VITAMIN TAB GT SCH (10:42)
[2017-09-04] MEDS: amLODIPine BESYLATE 5 MG TAB GT SCH (10:46)
[2017-09-04 12:42] VITALS: BP 116/51
[2017-09-04 17:05] VITALS: BP 124/82
[2017-09-04 21:51] VITALS: BP 126/87
[2017-09-05] VITALS (8 sets, daily range): BP systolic 121–150; BP diastolic 44–71
[2017-09-05] MEDS: PIPERACILLIN-TAZOB 3.375GM 100 ML IV SCH ×4 (00:12→17:12)
[2017-09-05] MEDS: APIXABAN 2.5 MG TAB GT SCH ×2 (09:41→21:19)
[2017-09-05] MEDS: FAMOTIDINE 20 MG TAB GT SCH ×2 (09:41→21:20)
[2017-09-05] MEDS: PARoxetine 20 MG TAB GT SCH (09:42)
[2017-09-05] MEDS: FOLIC ACID 1 MG TAB GT SCH (09:42)
[2017-09-05] MEDS: MULTIPLE VITAMIN TAB GT SCH (09:42)
[2017-09-05] MEDS: amLODIPine BESYLATE 5 MG TAB GT SCH (09:42)
[2017-09-05 12:45] LABS: Basophils # (auto) 0.1 uL; Eosinophils # (auto) 0.2 uL; Hemoglobin 12.5 g/dL (12.2-16.2); Monocytes # (auto) 0.6 uL; White Blood Cell 9.9 10^3/uL (4.4-10.8)
[2017-09-05 12:47] LABS: Basophils % (auto) 1.3 % (0.0-2.0); Eosinophils % (auto) 1.9 % (0.0-7.0); Hematocrit 39.3 % (36.0-46.0); Lymphocytes % (auto) 10.5 % (10.0-50.0); Mean Corpuscular Hemoglobin 24.8 pg (28.0-32.0); Mean Corpuscular Hgb Conc. 31.8 g/dL (32.0-36.0); Mean Corpuscular Volume 77.8 fL (80.0-100.0); Monocytes % (auto) 5.8 % (0.0-12.0); Neutrophils % (auto) 80.5 % (37.0-80.0); Platelet Count (auto) 210 10^3/uL (140-450); Red Blood Cells 5.05 10^6/uL (4.0-5.20); Red Cell Distribution Width 17.4 % (11.8-14.3)
[2017-09-05] MEDS: Isosource 1.5 Cal 1 Liter GT SCH (21:20)
[2017-09-06] MEDS: PIPERACILLIN-TAZOB 3.375GM 100 ML IV SCH ×4 (00:33→17:46)
[2017-09-06 05:00] VITALS: BP 149/63
[2017-09-06 07:49] VITALS: BP 109/92
[2017-09-06 08:10] VITALS: BP 109/92
[2017-09-06] MEDS: FOLIC ACID 1 MG TAB GT SCH (08:59)
[2017-09-06] MEDS: PARoxetine 20 MG TAB GT SCH (08:59)
[2017-09-06] MEDS: APIXABAN 2.5 MG TAB GT SCH ×2 (08:59→22:12)
[2017-09-06] MEDS: FAMOTIDINE 20 MG TAB GT SCH ×2 (08:59→22:12)
[2017-09-06] MEDS: MULTIPLE VITAMIN TAB GT SCH (08:59)
[2017-09-06] MEDS: amLODIPine BESYLATE 5 MG TAB GT SCH (08:59)
[2017-09-06 12:02] VITALS: BP 140/65
[2017-09-06 16:33] VITALS: BP 137/69
[2017-09-06 21:47] VITALS: BP 137/59
[2017-09-07 05:00] VITALS: BP 121/53
[2017-09-07] MEDS: PIPERACILLIN-TAZOB 3.375GM 100 ML IV SCH ×4 (06:20→17:30)
[2017-09-07 08:33] VITALS: BP 134/75
[2017-09-07] MEDS: APIXABAN 2.5 MG TAB GT SCH ×2 (10:02→23:09)
[2017-09-07] MEDS: FAMOTIDINE 20 MG TAB GT SCH ×2 (10:02→23:09)
[2017-09-07] MEDS: FOLIC ACID 1 MG TAB GT SCH (10:02)
[2017-09-07] MEDS: PARoxetine 20 MG TAB GT SCH (10:02)
[2017-09-07] MEDS: MULTIPLE VITAMIN TAB GT SCH (10:02)
[2017-09-07] MEDS: amLODIPine BESYLATE 5 MG TAB GT SCH (10:06)
[2017-09-07 13:03] VITALS: BP 145/57
[2017-09-07 17:00] VITALS: BP 140/54
[2017-09-07 22:00] VITALS: BP 142/72
[2017-09-08] MEDS: PIPERACILLIN-TAZOB 3.375GM 100 ML IV SCH ×5 (01:02→23:39)
[2017-09-08 05:00] VITALS: BP 146/90
[2017-09-08 09:28] VITALS: BP 149/63
[2017-09-08] MEDS: FAMOTIDINE 20 MG TAB GT SCH ×2 (09:47→23:05)
[2017-09-08] MEDS: PARoxetine 20 MG TAB GT SCH (09:47)
[2017-09-08] MEDS: FOLIC ACID 1 MG TAB GT SCH (09:47)
[2017-09-08] MEDS: APIXABAN 2.5 MG TAB GT SCH ×2 (09:47→23:05)
[2017-09-08] MEDS: MULTIPLE VITAMIN TAB GT SCH (09:47)
[2017-09-08] MEDS: amLODIPine BESYLATE 5 MG TAB GT SCH (09:48)
[2017-09-08 11:17] VITALS: BP 149/65
[2017-09-08 12:51] VITALS: BP 136/61
[2017-09-08 17:08] VITALS: BP 132/51
[2017-09-08 22:00] VITALS: BP 148/57
[2017-09-08] MEDS: Isosource 1.5 Cal 1 Liter GT SCH (23:06)
[2017-09-09 05:00] VITALS: BP 149/66
[2017-09-09] MEDS: PIPERACILLIN-TAZOB 3.375GM 100 ML IV SCH ×4 (06:00→23:56)
[2017-09-09 08:30] VITALS: BP 140/54
[2017-09-09] MEDS: PARoxetine 20 MG TAB GT SCH (11:18)
[2017-09-09] MEDS: MULTIPLE VITAMIN TAB GT SCH (11:18)
[2017-09-09] MEDS: APIXABAN 2.5 MG TAB GT SCH ×2 (11:18→22:17)
[2017-09-09] MEDS: FAMOTIDINE 20 MG TAB GT SCH ×2 (11:18→22:17)
[2017-09-09] MEDS: FOLIC ACID 1 MG TAB GT SCH (11:18)
[2017-09-09] MEDS: amLODIPine BESYLATE 5 MG TAB GT SCH (11:19)
[2017-09-09 13:00] VITALS: BP 152/82
[2017-09-09 16:59] VITALS: BP 151/55
[2017-09-09] MEDS: Isosource 1.5 Cal 1 Liter GT SCH (20:21)
[2017-09-09 22:00] VITALS: BP 135/62
[2017-09-10 05:56] VITALS: BP 135/68
[2017-09-10] MEDS: PIPERACILLIN-TAZOB 3.375GM 100 ML IV SCH ×3 (06:54→18:14)
[2017-09-10 09:14] VITALS: BP 144/67
[2017-09-10] MEDS: MULTIPLE VITAMIN TAB GT SCH (10:40)
[2017-09-10] MEDS: PARoxetine 20 MG TAB GT SCH (10:40)
[2017-09-10] MEDS: APIXABAN 2.5 MG TAB GT SCH ×2 (10:41→20:53)
[2017-09-10] MEDS: FOLIC ACID 1 MG TAB GT SCH (10:41)
[2017-09-10] MEDS: FAMOTIDINE 20 MG TAB GT SCH ×2 (10:41→20:53)
[2017-09-10] MEDS: amLODIPine BESYLATE 5 MG TAB GT SCH (10:42)
[2017-09-10 12:45] VITALS: BP 107/66
[2017-09-10 15:21] LABS: Basophils # (auto) 0.2 uL; Eosinophils # (auto) 0.2 uL; Hematocrit 39.2 % (36.0-46.0); Hemoglobin 12.5 g/dL (12.2-16.2); Nucleated Red Blood Cells % 0.1 %
[2017-09-10 15:23] LABS: Basophils % (auto) 1.4 % (0.0-2.0); Eosinophils % (auto) 1.6 % (0.0-7.0); Lymphocytes # (auto) 1.2 uL; Lymphocytes % (auto) 8.6 % (10.0-50.0); Mean Corpuscular Hemoglobin 25.1 pg (28.0-32.0); Mean Corpuscular Volume 78.5 fL (80.0-100.0); Monocytes % (auto) 7.6 % (0.0-12.0); Neutrophils % (auto) 80.8 % (37.0-80.0); Platelet Count (auto) 222 10^3/uL (140-450); Red Cell Distribution Width 17.7 % (11.8-14.3); White Blood Cell 13.6 10^3/uL (4.4-10.8)
[2017-09-10 15:44] LABS: Albumin 2.3 g/dL (3.4-5.0); BUN/Creatinine Ratio 46.4; Bilirubin, Total 0.3 mg/dL (0.2-1.0); Calcium 8.9 mg/dL (8.5-10.1); Potassium 3.9 mmol/L (3.5-5.1); Total Protein 7.7 g/dL (6.4-8.2)
[2017-09-10 17:09] VITALS: BP 127/56
[2017-09-10] MEDS: Isosource 1.5 Cal 1 Liter GT SCH (20:54)
[2017-09-10 22:00] VITALS: BP 119/77
[2017-09-11] VITALS (7 sets, daily range): BP systolic 117–137; BP diastolic 41–77
[2017-09-11] MEDS: PIPERACILLIN-TAZOB 3.375GM 100 ML IV SCH ×4 (00:28→17:57)
[2017-09-11 05:41] LABS: Basophils # (auto) 0.1 uL; Eosinophils # (auto) 0.2 uL; Hematocrit 38.7 % (36.0-46.0)
[2017-09-11 05:43] LABS: Basophils % (auto) 1.1 % (0.0-2.0); Hemoglobin 12.2 g/dL (12.2-16.2); Lymphocytes # (auto) 1.2 uL; Lymphocytes % (auto) 10.6 % (10.0-50.0); Mean Corpuscular Hemoglobin 25.1 pg (28.0-32.0); Mean Corpuscular Hgb Conc. 31.5 g/dL (32.0-36.0); Mean Corpuscular Volume 79.5 fL (80.0-100.0); Monocytes % (auto) 8.5 % (0.0-12.0); Neutrophils # (auto) 9.2 uL; Neutrophils % (auto) 77.8 % (37.0-80.0); Platelet Count (auto) 203 10^3/uL (140-450); Red Blood Cells 4.87 10^6/uL (4.0-5.20); Red Cell Distribution Width 17.6 % (11.8-14.3); White Blood Cell 11.8 10^3/uL (4.4-10.8)
[2017-09-11 06:36] LABS: Albumin 2.2 g/dL (3.4-5.0); BUN/Creatinine Ratio 43.9; Bilirubin, Total 0.4 mg/dL (0.2-1.0); Calcium 8.5 mg/dL (8.5-10.1); Potassium 3.7 mmol/L (3.5-5.1); Total Protein 7.5 g/dL (6.4-8.2)
[2017-09-11] MEDS: FOLIC ACID 1 MG TAB GT SCH (10:52)
[2017-09-11] MEDS: PARoxetine 20 MG TAB GT SCH (10:52)
[2017-09-11] MEDS: APIXABAN 2.5 MG TAB GT SCH ×2 (10:55→22:20)
[2017-09-11] MEDS: FAMOTIDINE 20 MG TAB GT SCH ×2 (10:55→22:20)
[2017-09-11] MEDS: amLODIPine BESYLATE 5 MG TAB GT SCH (10:55)
[2017-09-11] MEDS: MULTIPLE VITAMIN TAB GT SCH (10:56)
[2017-09-11] MEDS ORDERED: Isosource 1.5 Cal 1 Liter GT SCH (16:00)
[2017-09-11] MEDS: D5W/SOD CHL 0.45% 1,000 ML IV SCH (17:56)
[2017-09-11] MEDS: FREE WATER GT SCH ×2 (17:57→22:20)
[2017-09-12] MEDS: PIPERACILLIN-TAZOB 3.375GM 100 ML IV SCH ×4 (00:30→18:00)
[2017-09-12] MEDS: D5W/SOD CHL 0.45% 1,000 ML IV SCH ×2 (00:53→11:15)
[2017-09-12 05:00] VITALS: BP 135/41
[2017-09-12 05:55] LABS: Basophils # (auto) 0.1 uL; Eosinophils # (auto) 0.4 uL; Monocytes # (auto) 0.7 uL
[2017-09-12 06:02] LABS: Eosinophils % (auto) 3.9 % (0.0-7.0); Hematocrit 34.5 % (36.0-46.0); Hemoglobin 11.3 g/dL (12.2-16.2); Lymphocytes % (auto) 10.1 % (10.0-50.0); Mean Corpuscular Hemoglobin 25.4 pg (28.0-32.0); Mean Corpuscular Hgb Conc. 32.8 g/dL (32.0-36.0); Mean Corpuscular Volume 77.5 fL (80.0-100.0); Monocytes % (auto) 6.8 % (0.0-12.0); Neutrophils # (auto) 7.9 uL; Neutrophils % (auto) 78.2 % (37.0-80.0); Platelet Count (auto) 191 10^3/uL (140-450); Red Blood Cells 4.45 10^6/uL (4.0-5.20); Red Cell Distribution Width 17.4 % (11.8-14.3); White Blood Cell 10.1 10^3/uL (4.4-10.8)
[2017-09-12] MEDS: FREE WATER GT SCH ×4 (06:13→21:19)
[2017-09-12 06:21] LABS: BUN/Creatinine Ratio 47.1; Calcium 8.6 mg/dL (8.5-10.1); Potassium 3.3 mmol/L (3.5-5.1)
[2017-09-12 08:00] VITALS: BP 140/69
[2017-09-12 08:30] VITALS: BP 140/69
[2017-09-12] MEDS: FOLIC ACID 1 MG TAB GT SCH (10:48)
[2017-09-12] MEDS: PARoxetine 20 MG TAB GT SCH (10:48)
[2017-09-12] MEDS: FAMOTIDINE 20 MG TAB GT SCH ×2 (10:48→21:19)
[2017-09-12] MEDS: amLODIPine BESYLATE 5 MG TAB GT SCH (10:50)
[2017-09-12] MEDS: APIXABAN 2.5 MG TAB GT SCH ×2 (10:50→21:19)
[2017-09-12] MEDS: MULTIPLE VITAMIN TAB GT SCH (10:50)
[2017-09-12 12:45] VITALS: BP 136/40
[2017-09-12] MEDS ORDERED: POTASSIUM CHL 10% (20 MEQ/15ML) 15ml ORAL SOLN PO ONE (13:30)
[2017-09-12 17:12] VITALS: BP 151/62
[2017-09-12 22:00] VITALS: BP 131/60
[2017-09-13] MEDS: PIPERACILLIN-TAZOB 3.375GM 100 ML IV SCH ×4 (00:33→17:53)
[2017-09-13 05:00] VITALS: BP 122/73
[2017-09-13] MEDS: FREE WATER GT SCH ×3 (05:43→17:53)
[2017-09-13 06:12] LABS: BUN/Creatinine Ratio 39.2; Calcium 8.5 mg/dL (8.5-10.1); Potassium 3.5 mmol/L (3.5-5.1)
[2017-09-13 08:00] VITALS: BP 140/69
[2017-09-13 08:04] VITALS: BP 107/60
[2017-09-13] MEDS: amLODIPine BESYLATE 5 MG TAB GT SCH (10:00)
[2017-09-13] MEDS: FAMOTIDINE 20 MG TAB GT SCH (10:39)
[2017-09-13] MEDS: APIXABAN 2.5 MG TAB GT SCH (10:39)
[2017-09-13] MEDS: MULTIPLE VITAMIN TAB GT SCH (10:39)
[2017-09-13] MEDS: PARoxetine 20 MG TAB GT SCH (10:39)
[2017-09-13] MEDS: FOLIC ACID 1 MG TAB GT SCH (10:39)
[2017-09-13 11:58] VITALS: BP 115/58
[2017-09-13 14:21] VITALS: BP 107/60
[2017-09-13 16:19] VITALS: BP 138/71
== END 2017-09-13 20:35 | DRG 870 ==
LOC: ER 16:48 → EDBD 16:48 → OVERFLOW 16:49 → CENTRAL 08-31 00:50
PROVIDERS: ADMIT Internal Medicine Cardiovascular Disease; ATTEND Internal Medicine Cardiovascular Disease
PROC: 5A1955Z Respiratory Ventilation, Greater than 96 Consecutive Hours (ICD-10-PCS; principal; 2017-08-30)
DX: A41.9 Sepsis, unspecified organism (principal); J96.90 Respiratory failure, unspecified, unspecified whether with hypoxia or hypercapnia; J18.9 Pneumonia, unspecified organism; N39.0 Urinary tract infection, site not specified; E46 Unspecified protein-calorie malnutrition; J44.0 Chronic obstructive pulmonary disease with (acute) lower respiratory infection; Z99.11 Dependence on respirator [ventilator] status; K62.5 Hemorrhage of anus and rectum; Z66 Do not resuscitate; J98.8 Other specified respiratory disorders; B95.62 Methicillin resistant Staphylococcus aureus infection as the cause of diseases classified elsewhere; G35 Multiple sclerosis; B96.5 Pseudomonas (aeruginosa) (mallei) (pseudomallei) as the cause of diseases classified elsewhere; E87.6 Hypokalemia; E86.9 Volume depletion, unspecified; I11.0 Hypertensive heart disease with heart failure; I48.91 Unspecified atrial fibrillation; I50.9 Heart failure, unspecified; Z88.5 Allergy status to narcotic agent; Z88.2 Allergy status to sulfonamides; Z91.040 Latex allergy status; Z82.49 Family history of ischemic heart disease and other diseases of the circulatory system; Z93.0 Tracheostomy status; Z79.899 Other long term (current) drug therapy; Z90.49 Acquired absence of other specified parts of digestive tract; Z68.28 Body mass index [BMI] 28.0-28.9, adult
CPT/HCPCS: 36415; 36600; 51702; 71045; 80048; 80053; 81001; 82805; 83735; 83880; 85025; 87070; 87077; 87081; 87086; 87088; 87186; 87205; 94002; 94003; 96360; J2543

== ENCOUNTER 2017-12-21 15:53 | Inpatient (IN) | payer MEDICARE, MEDICAID ==
[~2017-12-21] VITALS: Ht 152.4 cm; Wt 83.8 kg
[~2017-12-21 15:53] MED LIST changes: -CRAN600T OR; -FOLITAB22 PO; -FOLITAB45 OR; -MULTTAB99 GT
[2017-12-21] MEDS ORDERED: SODIUM CHLORIDE 0.9% 1,000 ML IV ONE (16:14)
[2017-12-21] MEDS ORDERED: cefTRIAXone 1GM/10ml IVPUSH 10 ML IV ONE (16:15)
[2017-12-21 16:59] LABS: Basophils # (auto) 0 uL; Eosinophils # (auto) 0.2 uL; Lymphocytes # (auto) 1.1 uL; Nucleated Red Blood Cells % 0.1 %
[2017-12-21 17:01] LABS: Basophils % (auto) 0.5 % (0.0-2.0); Hematocrit 33.3 % (36.0-46.0); Hemoglobin 10.7 g/dL (12.2-16.2); Lymphocytes % (auto) 13.9 % (10.0-50.0); Mean Corpuscular Hemoglobin 24.2 pg (28.0-32.0); Mean Corpuscular Hgb Conc. 32.2 g/dL (32.0-36.0); Mean Corpuscular Volume 75.2 fL (80.0-100.0); Monocytes # (auto) 0.6 uL; Neutrophils # (auto) 6.1 uL; Neutrophils % (auto) 75.6 % (37.0-80.0); Platelet Count (auto) 241 10^3/uL (140-450); Red Blood Cells 4.43 10^6/uL (4.0-5.20); White Blood Cell 8.1 10^3/uL (4.4-10.8)
[2017-12-21 17:06] LABS: Red Cell Distribution Width 20.2 % (11.8-14.3)
[2017-12-21 17:14] LABS: Albumin 3.1 g/dL (3.4-5.0); BUN/Creatinine Ratio 39.1; Calcium 8.3 mg/dL (8.5-10.1); Magnesium 2.3 mg/dL (1.6-2.6)
[2017-12-21 17:16] LABS: Bilirubin, Total 0.4 mg/dL (0.2-1.0); Total Protein 8.3 g/dL (6.4-8.2)
[2017-12-21] MEDS ORDERED: CIPROFLOXACIN 400MG/200ML 200 ML IV ONE (20:00)
[2017-12-21 21:31] LABS: Urine Blood 1+ /uL (Negative); Urine Specific Gravity 1.021 (1.001-1.035)
[2017-12-21 21:32] LABS: Urine WBC 30 /hpf (0 - 5)
[2017-12-21 21:33] LABS: Urine Amorphous Sediment Moderate /hpf; Urine Bacteria 3+ /hpf (None Seen)
[2017-12-21 22:11] VITALS: BP 111/45
[2017-12-21 22:15] VITALS: BP 100/46
[2017-12-21] MEDS ORDERED: ALBUTEROL SULF 2.5 MG/0.5ML(0.5%) NEB SOLN NEB PRN (23:00)
[2017-12-21] MEDS: IPRATROPIUM BROM 0.5 MG/2.5ML INH SOL NEB SCH (23:40)
[2017-12-21] MEDS: ALBUTEROL SULF 2.5 MG/0.5ML(0.5%) NEB SOLN NEB SCH (23:40)
[2017-12-22] VITALS (8 sets, daily range): BP systolic 113–152; BP diastolic 56–95
[2017-12-22] MEDS ORDERED: ACET-1156 PO (04:02)
[2017-12-22] MEDS ORDERED: APIX2.5T GT (04:02)
[2017-12-22] MEDS ORDERED: LACT10SO3 PO (04:02)
[2017-12-22] MEDS ORDERED: AMLO5TAB13 GT (04:02)
[2017-12-22] MEDS ORDERED: HYDR-4683 GT (04:02)
[2017-12-22] MEDS ORDERED: ALPR0.25 GT (04:02)
[2017-12-22] MEDS ORDERED: FAM20T GT (04:02)
[2017-12-22] MEDS ORDERED: METO-281 GT (04:02)
[2017-12-22] MEDS ORDERED: MULT1TAB61 GT (04:02)
[2017-12-22] MEDS ORDERED: PAR20T GT (04:02)
[2017-12-22] MEDS ORDERED: DIPH2.5T73 GT (04:02)
[2017-12-22] MEDS ORDERED: MOMLQ BC (04:02)
[2017-12-22] MEDS ORDERED: BIS10RS PR (04:02)
[2017-12-22] MEDS: ALBUTEROL SULF 2.5 MG/0.5ML(0.5%) NEB SOLN NEB SCH ×3 (06:19→18:40)
[2017-12-22] MEDS: IPRATROPIUM BROM 0.5 MG/2.5ML INH SOL NEB SCH ×3 (06:19→18:40)
[2017-12-22 06:24] LABS: Anion Gap 10 (5-15); Blood Urea Nitrogen 29 mg/dL (7-18); Calcium 7.9 mg/dL (8.5-10.1); Carbon Dioxide 20 mmol/L (21-32); Chloride 113 mmol/L (98-107); Glucose 79 mg/dL (74-106); Potassium 3.6 mmol/L (3.5-5.1); Sodium 143 mmol/L (136-145)
[2017-12-22 06:26] LABS: BUN/Creatinine Ratio 51.8; GFR African American 135 mL/min; GFR Non-African American 111 mL/min
[2017-12-22 07:20] LABS: Basophils # (auto) 0 uL; Basophils % (auto) 0.6 % (0.0-2.0); Eosinophils # (auto) 0.2 uL; Eosinophils % (auto) 3.5 % (0.0-7.0); Hematocrit 37.2 % (36.0-46.0); Hemoglobin 10.5 g/dL (12.2-16.2); Lymphocytes # (auto) 1.2 uL; Mean Corpuscular Hgb Conc. 28.2 g/dL (32.0-36.0); Mean Corpuscular Volume 82.3 fL (80.0-100.0); Monocytes # (auto) 0.5 uL; Monocytes % (auto) 7.9 % (0.0-12.0); Neutrophils # (auto) 4.7 uL; Nucleated Red Blood Cells % 2.3 %; Platelet Count (auto) 223 10^3/uL (140-450); Red Blood Cells 4.52 10^6/uL (4.0-5.20); Red Cell Distribution Width 21.2 % (11.8-14.3); White Blood Cell 6.7 10^3/uL (4.4-10.8)
[2017-12-22 07:23] LABS: Mean Corpuscular Hemoglobin 23.2 pg (28.0-32.0)
[2017-12-22] MEDS: PANTOPRAZOLE 40 MG/10 ML VIAL IV SCH (08:18)
[2017-12-22] MEDS ORDERED: TPN PER PHARMACY 0 ML IV SCH (09:15)
[2017-12-22] MEDS: LEVOFLOXACIN 500MG 100 ML IV SCH (09:24)
[2017-12-22 09:51] LABS: Bilirubin, Direct 0.1 mg/dL (0-0.2); Magnesium 2.3 mg/dL (1.6-2.6); Phosphorus 4.3 mg/dL (2.5-4.90)
[2017-12-22 09:54] LABS: Bilirubin, Total 0.3 mg/dL (0.2-1.0)
[2017-12-22] MEDS ORDERED: CALCIUM GLUC 4.65meq/50ml D5AE 50 ML IV ONE (12:00)
[2017-12-22] MEDS ORDERED: HYDROmorphone HCL 2 MG/ML VL IV ONE (12:30)
[2017-12-22] MEDS ORDERED: LIDOCAINE 1% HCL (LOCAL ANESTH.) INJ 20ML MDV IJ ONE (12:30)
[2017-12-22] MEDS ORDERED: LIDOCAINE 1% (LOCAL ANESTH.) PF 5ml SDV ONE (12:41)
[2017-12-22] MEDS ORDERED: LIDOCAINE 2%HCL (LOCAL ANESTH.) INJ 10ml MDV IJ ONE (12:45)
[2017-12-22 13:36] LABS: INR 1.16 (0.9-1.15); Prothrombin Time 12.3 sec (9.27-12.13)
[2017-12-22] MEDS ORDERED: EPINEPHRINE 1 MG/ML TOP PRN ×2 (17:30→17:45)
[2017-12-22] MEDS: EPINEPHRINE 1 MG/ML TOP PRN ×2 (17:30→21:30)
[2017-12-22] MEDS ORDERED: LIDOCAINE 1% (LOCAL ANESTH.) PF 5ml SDV ID ONE (17:45)
[2017-12-22] MEDS ORDERED: cefTRIAXone 1GM/10ml IVPUSH 10 ML IV SCH (18:00)
[2017-12-22] MEDS: HYDROmorphone HCL 2 MG/ML VL IV PRN ×2 (19:03→23:43)
[2017-12-22] MEDS: SODIUM CHLOR 0.9% PF (SALINE LOCK) 10ML VIAL/SYR IV SCH (19:54)
[2017-12-22] MEDS ORDERED: PPN PER PHARMACY IV NR ×6 (20:00)
[2017-12-23] MEDS ORDERED: DEXTROSE (50%) 50ML SYRG IV SCH
[2017-12-23] MEDS: IPRATROPIUM BROM 0.5 MG/2.5ML INH SOL NEB SCH ×4 (00:14→20:57)
[2017-12-23] MEDS: ALBUTEROL SULF 2.5 MG/0.5ML(0.5%) NEB SOLN NEB SCH ×4 (00:14→20:57)
[2017-12-23 05:56] VITALS: BP 127/64
[2017-12-23] MEDS: EPINEPHRINE 1 MG/ML TOP PRN (06:30)
[2017-12-23] MEDS: HYDROmorphone HCL 2 MG/ML VL IV PRN (06:30)
[2017-12-23] MEDS: InsuLIN REG 1unit/0.01ml Soln (100units/ml) SC SCH ×4 (06:46→18:37)
[2017-12-23] MEDS: ACCU-CHEK COMFORT CURVE STRIP VI SCH ×4 (06:47→17:46)
[2017-12-23 07:08] LABS: Potassium 3.7 mmol/L (3.5-5.1)
[2017-12-23 07:10] LABS: Albumin 2.8 g/dL (3.4-5.0); BUN/Creatinine Ratio 57.4; Calcium 7.8 mg/dL (8.5-10.1); Magnesium 2.2 mg/dL (1.6-2.6)
[2017-12-23 07:14] LABS: Bilirubin, Total 0.2 mg/dL (0.2-1.0); Phosphorus 2.2 mg/dL (2.5-4.90); Total Protein 7.8 g/dL (6.4-8.2)
[2017-12-23] MEDS: PANTOPRAZOLE 40 MG/10 ML VIAL IV SCH (08:36)
[2017-12-23] MEDS: LORazepam 2MG/ML-1ML VIAL IV PRN (08:36)
[2017-12-23 08:59] LABS: Basophils # (auto) 0.1 uL; Eosinophils # (auto) 0.1 uL; Hematocrit 29.6 % (36.0-46.0); Lymphocytes # (auto) 1.2 uL
[2017-12-23 09:00] VITALS: BP 113/79
[2017-12-23 09:01] LABS: Eosinophils % (auto) 1.1 % (0.0-7.0); Hemoglobin 9.2 g/dL (12.2-16.2); Lymphocytes % (auto) 11.9 % (10.0-50.0); Mean Corpuscular Hemoglobin 23.9 pg (28.0-32.0); Mean Corpuscular Hgb Conc. 31.1 g/dL (32.0-36.0); Mean Corpuscular Volume 76.9 fL (80.0-100.0); Monocytes % (auto) 9.8 % (0.0-12.0); Neutrophils # (auto) 7.4 uL; Neutrophils % (auto) 76.2 % (37.0-80.0); Nucleated Red Blood Cells % 0.1 %; Platelet Count (auto) 265 10^3/uL (140-450); Red Blood Cells 3.85 10^6/uL (4.0-5.20); Red Cell Distribution Width 19.7 % (11.8-14.3); White Blood Cell 9.7 10^3/uL (4.4-10.8)
[2017-12-23] MEDS ORDERED: POTASSIUM PHOSPHATE 22 MEQ in SODIUM CHL 0.9% 100 ML IV ONE (09:45)
[2017-12-23] MEDS: LEVOFLOXACIN 500MG 100 ML IV SCH (10:31)
[2017-12-23] MEDS: SODIUM CHLOR 0.9% PF (SALINE LOCK) 10ML VIAL/SYR IV SCH ×2 (10:32→21:34)
[2017-12-23] MEDS ORDERED: GASTROGRAFIN 30 ML SOL ONE (11:40)
[2017-12-23 13:00] VITALS: BP 110/78
[2017-12-23 17:00] VITALS: BP 118/60
[2017-12-23 18:00] VITALS: BP 118/60
[2017-12-23] MEDS: PIPERACILLIN-TAZOB 3.375GM 100 ML IV SCH (18:36)
[2017-12-23] MEDS ORDERED: TPN PER PHARMACY IV NR ×9 (20:00)
[2017-12-23 22:00] VITALS: BP 141/67
[2017-12-24] MEDS: PIPERACILLIN-TAZOB 3.375GM 100 ML IV SCH ×4 (00:05→18:40)
[2017-12-24] MEDS: InsuLIN REG 1unit/0.01ml Soln (100units/ml) SC SCH ×4 (00:06→18:00)
[2017-12-24] MEDS: ACCU-CHEK COMFORT CURVE STRIP VI SCH ×4 (00:06→18:00)
[2017-12-24] MEDS: IPRATROPIUM BROM 0.5 MG/2.5ML INH SOL NEB SCH ×4 (00:27→19:03)
[2017-12-24] MEDS: ALBUTEROL SULF 2.5 MG/0.5ML(0.5%) NEB SOLN NEB SCH ×4 (00:27→19:03)
[2017-12-24 05:00] VITALS: BP 120/54
[2017-12-24 05:30] LABS: Calcium 7.4 mg/dL (8.5-10.1); Potassium 3.1 mmol/L (3.5-5.1)
[2017-12-24 05:33] LABS: Albumin 2.6 g/dL (3.4-5.0); BUN/Creatinine Ratio 55.6; Magnesium 1.9 mg/dL (1.6-2.6)
[2017-12-24 05:36] LABS: Bilirubin, Total 0.3 mg/dL (0.2-1.0); Phosphorus 1.9 mg/dL (2.5-4.90); Total Protein 7.5 g/dL (6.4-8.2)
[2017-12-24 08:00] VITALS: BP 136/53
[2017-12-24 09:00] VITALS: BP 136/53
[2017-12-24] MEDS ORDERED: POTASSIUM PHOSPHATE 44 MEQ in D5W 5% 250 ML IV ONE (10:45)
[2017-12-24] MEDS: PANTOPRAZOLE 40 MG/10 ML VIAL IV SCH (12:01)
[2017-12-24] MEDS: SODIUM CHLOR 0.9% PF (SALINE LOCK) 10ML VIAL/SYR IV SCH ×2 (12:02→21:44)
[2017-12-24 12:58] LABS: Hemoglobin 8.9 g/dL (12.2-16.2)
[2017-12-24 13:00] VITALS: BP 116/79
[2017-12-24 13:01] LABS: Hematocrit 28.6 % (36.0-46.0)
[2017-12-24] MEDS: POTASSIUM CHL 20MEQ/100ML 100 ML IV SCH ×2 (13:27→14:00)
[2017-12-24] MEDS ORDERED: Jevity 1.2 Cal/Fiber 1 Liter GT SCH (14:30)
[2017-12-24 17:00] VITALS: BP 119/55
[2017-12-24 19:44] LABS: Pre Albumin 15.7 mg/dL (20.0-40.0)
[2017-12-24 19:45] LABS: Pre Albumin 20.4 mg/dL (20.0-40.0)
[2017-12-24] MEDS ORDERED: TPN PER PHARMACY IV NR ×9 (20:00)
[2017-12-24 21:52] VITALS: BP 155/71
[2017-12-25] VITALS (8 sets, daily range): BP systolic 106–155; BP diastolic 46–71
[2017-12-25] MEDS: ALBUTEROL SULF 2.5 MG/0.5ML(0.5%) NEB SOLN NEB SCH ×4 (00:13→18:59)
[2017-12-25] MEDS: IPRATROPIUM BROM 0.5 MG/2.5ML INH SOL NEB SCH ×4 (00:14→18:59)
[2017-12-25] MEDS: PIPERACILLIN-TAZOB 3.375GM 100 ML IV SCH ×4 (00:34→17:39)
[2017-12-25] MEDS: InsuLIN REG 1unit/0.01ml Soln (100units/ml) SC SCH ×4 (00:36→17:40)
[2017-12-25] MEDS: ZINC OXIDE 20 % OINT 30GM TOP SCH ×4 (00:37→17:40)
[2017-12-25] MEDS: ACCU-CHEK COMFORT CURVE STRIP VI SCH ×4 (00:43→17:40)
[2017-12-25] MEDS: PANTOPRAZOLE 40 MG/10 ML VIAL IV SCH (08:35)
[2017-12-25 10:57] LABS: Eosinophils # (auto) 0.4 uL; Hematocrit 28.1 % (36.0-46.0); Lymphocytes # (auto) 1.3 uL; Nucleated Red Blood Cells % 0.1 %
[2017-12-25 11:11] LABS: Basophils # (auto) 0 uL; Basophils % (auto) 0.4 % (0.0-2.0); Eosinophils % (auto) 4.5 % (0.0-7.0); Hemoglobin 8.6 g/dL (12.2-16.2); Mean Corpuscular Hemoglobin 23.4 pg (28.0-32.0); Mean Corpuscular Hgb Conc. 30.7 g/dL (32.0-36.0); Mean Corpuscular Volume 76.3 fL (80.0-100.0); Monocytes # (auto) 0.8 uL; Monocytes % (auto) 8.4 % (0.0-12.0); Neutrophils # (auto) 6.7 uL; Neutrophils % (auto) 72.7 % (37.0-80.0); Platelet Count (auto) 207 10^3/uL (140-450); Red Blood Cells 3.68 10^6/uL (4.0-5.20); White Blood Cell 9.3 10^3/uL (4.4-10.8)
[2017-12-25 11:27] LABS: Alkaline Phosphatase 102 U/L (45-117); Anion Gap 5 (5-15); Blood Urea Nitrogen 15 mg/dL (7-18); Carbon Dioxide 27 mmol/L (21-32); Chloride 111 mmol/L (98-107); GFR African American 153 mL/min; GFR Non-African American 127 mL/min; Glucose 180 mg/dL (74-106); Potassium 3.8 mmol/L (3.5-5.1); Sodium 143 mmol/L (136-145)
[2017-12-25 11:28] LABS: Alanine Aminotransferase 21 U/L (13-56); Albumin 2.7 g/dL (3.4-5.0); Aspartate Aminotransferase 13 U/L (15-37); Bilirubin, Total 0.2 mg/dL (0.2-1.0); Calcium 8.1 mg/dL (8.5-10.1); Magnesium 2.2 mg/dL (1.6-2.6); Phosphorus 2.4 mg/dL (2.5-4.90); Total Protein 7.4 g/dL (6.4-8.2)
[2017-12-25] MEDS: SODIUM CHLOR 0.9% PF (SALINE LOCK) 10ML VIAL/SYR IV SCH ×2 (11:32→22:21)
[2017-12-25] MEDS ORDERED: TPN PER PHARMACY IV NR ×9 (20:00)
[2017-12-25] MEDS: LORazepam 2MG/ML-1ML VIAL IV PRN (22:21)
[2017-12-26] MEDS: ALBUTEROL SULF 2.5 MG/0.5ML(0.5%) NEB SOLN NEB SCH ×4 (00:20→18:15)
[2017-12-26] MEDS: IPRATROPIUM BROM 0.5 MG/2.5ML INH SOL NEB SCH ×4 (00:20→18:15)
[2017-12-26] MEDS: PIPERACILLIN-TAZOB 3.375GM 100 ML IV SCH ×4 (01:21→18:07)
[2017-12-26] MEDS: ZINC OXIDE 20 % OINT 30GM TOP SCH ×4 (02:09→18:08)
[2017-12-26 05:20] VITALS: BP 120/50
[2017-12-26] MEDS: InsuLIN REG 1unit/0.01ml Soln (100units/ml) SC SCH ×4 (06:00→18:07)
[2017-12-26] MEDS: ACCU-CHEK COMFORT CURVE STRIP VI SCH ×4 (06:00→18:07)
[2017-12-26 07:25] LABS: Potassium 3.8 mmol/L (3.5-5.1)
[2017-12-26 07:34] LABS: Albumin 2.4 g/dL (3.4-5.0); BUN/Creatinine Ratio 34.8; Bilirubin, Total 0.2 mg/dL (0.2-1.0); Calcium 7.7 mg/dL (8.5-10.1); Magnesium 2.4 mg/dL (1.6-2.6); Phosphorus 2.5 mg/dL (2.5-4.90); Total Protein 6.9 g/dL (6.4-8.2)
[2017-12-26] MEDS: PANTOPRAZOLE 40 MG/10 ML VIAL IV SCH (07:58)
[2017-12-26 09:00] VITALS: BP 106/50
[2017-12-26] MEDS: SODIUM CHLOR 0.9% PF (SALINE LOCK) 10ML VIAL/SYR IV SCH ×2 (10:09→23:10)
[2017-12-26 13:00] VITALS: BP 102/42
[2017-12-26] MEDS: Jevity 1.2 Cal/Fiber 1 Liter GT SCH (14:31)
[2017-12-26 17:00] VITALS: BP 120/64
[2017-12-26] MEDS ORDERED: TPN PER PHARMACY IV NR ×9 (20:00)
[2017-12-26 21:46] VITALS: BP 104/41
[2017-12-27] MEDS: PIPERACILLIN-TAZOB 3.375GM 100 ML IV SCH ×4 (00:03→17:59)
[2017-12-27] MEDS: InsuLIN REG 1unit/0.01ml Soln (100units/ml) SC SCH ×4 (00:03→18:00)
[2017-12-27] MEDS: ACCU-CHEK COMFORT CURVE STRIP VI SCH ×4 (00:03→18:01)
[2017-12-27] MEDS: ZINC OXIDE 20 % OINT 30GM TOP SCH ×4 (00:04→18:01)
[2017-12-27] MEDS: IPRATROPIUM BROM 0.5 MG/2.5ML INH SOL NEB SCH ×4 (00:10→18:16)
[2017-12-27] MEDS: ALBUTEROL SULF 2.5 MG/0.5ML(0.5%) NEB SOLN NEB SCH ×4 (00:10→18:16)
[2017-12-27 05:19] VITALS: BP 113/45
[2017-12-27 06:37] LABS: Albumin 2.4 g/dL (3.4-5.0); Magnesium 2.5 mg/dL (1.6-2.6); Potassium 3.7 mmol/L (3.5-5.1)
[2017-12-27 06:45] LABS: Bilirubin, Total 0.2 mg/dL (0.2-1.0); Total Protein 7.1 g/dL (6.4-8.2)
[2017-12-27 09:00] VITALS: BP 138/53
[2017-12-27] MEDS: PANTOPRAZOLE 40 MG/10 ML VIAL IV SCH (09:43)
[2017-12-27] MEDS: SODIUM CHLOR 0.9% PF (SALINE LOCK) 10ML VIAL/SYR IV SCH ×2 (09:43→21:52)
[2017-12-27 13:00] VITALS: BP 126/52
[2017-12-27 17:00] VITALS: BP 106/44
[2017-12-27] MEDS ORDERED: TPN PER PHARMACY IV NR ×9 (20:00)
[2017-12-27 22:00] VITALS: BP 122/64
[2017-12-28] MEDS: IPRATROPIUM BROM 0.5 MG/2.5ML INH SOL NEB SCH ×4 (00:10→18:08)
[2017-12-28] MEDS: ALBUTEROL SULF 2.5 MG/0.5ML(0.5%) NEB SOLN NEB SCH ×4 (00:10→18:08)
[2017-12-28] MEDS: PIPERACILLIN-TAZOB 3.375GM 100 ML IV SCH ×4 (00:25→18:46)
[2017-12-28] MEDS: InsuLIN REG 1unit/0.01ml Soln (100units/ml) SC SCH ×4 (00:25→18:46)
[2017-12-28] MEDS: ACCU-CHEK COMFORT CURVE STRIP VI SCH ×4 (00:26→18:47)
[2017-12-28] MEDS: ZINC OXIDE 20 % OINT 30GM TOP SCH ×4 (00:28→18:00)
[2017-12-28 05:00] VITALS: BP 114/47
[2017-12-28 09:00] VITALS: BP 115/98
[2017-12-28] MEDS: PANTOPRAZOLE 40 MG/10 ML VIAL IV SCH (09:44)
[2017-12-28] MEDS: SODIUM CHLOR 0.9% PF (SALINE LOCK) 10ML VIAL/SYR IV SCH ×2 (10:00→21:23)
[2017-12-28 13:00] VITALS: BP 112/46
[2017-12-28 13:18] VITALS: BP 115/98
[2017-12-28 14:33] LABS: Albumin 2.4 g/dL (3.4-5.0); BUN/Creatinine Ratio 29.8; Calcium 7.8 mg/dL (8.5-10.1); Magnesium 2.2 mg/dL (1.6-2.6); Potassium 3.8 mmol/L (3.5-5.1)
[2017-12-28 14:36] LABS: Bilirubin, Total 0.2 mg/dL (0.2-1.0); Phosphorus 2.9 mg/dL (2.5-4.90); Total Protein 7.1 g/dL (6.4-8.2)
[2017-12-28 18:12] VITALS: BP 118/65
[2017-12-28] MEDS ORDERED: TPN PER PHARMACY IV NR ×6 (20:00)
[2017-12-28 22:00] VITALS: BP 95/40
[2017-12-28] MEDS: LORazepam 2MG/ML-1ML VIAL IV PRN (23:34)
[2017-12-29] MEDS: PIPERACILLIN-TAZOB 3.375GM 100 ML IV SCH ×4 (00:10→18:30)
[2017-12-29] MEDS: ACCU-CHEK COMFORT CURVE STRIP VI SCH ×4 (00:11→18:31)
[2017-12-29] MEDS: ZINC OXIDE 20 % OINT 30GM TOP SCH ×4 (00:13→18:00)
[2017-12-29 05:00] VITALS: BP 113/46
[2017-12-29] MEDS: InsuLIN REG 1unit/0.01ml Soln (100units/ml) SC SCH ×4 (05:56→18:31)
[2017-12-29 06:24] LABS: Albumin 2.3 g/dL (3.4-5.0); BUN/Creatinine Ratio 36.2; Calcium 8.1 mg/dL (8.5-10.1); Magnesium 2.2 mg/dL (1.6-2.6); Potassium 3.4 mmol/L (3.5-5.1)
[2017-12-29 06:28] LABS: Bilirubin, Total 0.2 mg/dL (0.2-1.0); Phosphorus 2.8 mg/dL (2.5-4.90); Total Protein 6.8 g/dL (6.4-8.2)
[2017-12-29] MEDS: ALBUTEROL SULF 2.5 MG/0.5ML(0.5%) NEB SOLN NEB SCH ×4 (06:39→18:47)
[2017-12-29] MEDS: IPRATROPIUM BROM 0.5 MG/2.5ML INH SOL NEB SCH ×4 (06:39→18:46)
[2017-12-29] MEDS: PANTOPRAZOLE 40 MG/10 ML VIAL IV SCH (08:00)
[2017-12-29 08:48] VITALS: BP 120/40
[2017-12-29] MEDS: SODIUM CHLOR 0.9% PF (SALINE LOCK) 10ML VIAL/SYR IV SCH ×2 (10:00→22:29)
[2017-12-29] MEDS: POTASSIUM CHL 20MEQ/100ML 100 ML IV SCH ×2 (12:23→16:26)
[2017-12-29 13:02] VITALS: BP 106/44
[2017-12-29 17:00] VITALS: BP 117/47
[2017-12-29] MEDS ORDERED: TPN PER PHARMACY IV NR ×9 (20:00)
[2017-12-29 21:53] VITALS: BP 117/39
[2017-12-30] VITALS (8 sets, daily range): BP systolic 111–133; BP diastolic 43–61
[2017-12-30] MEDS: ALBUTEROL SULF 2.5 MG/0.5ML(0.5%) NEB SOLN NEB SCH ×4 (00:23→18:56)
[2017-12-30] MEDS: IPRATROPIUM BROM 0.5 MG/2.5ML INH SOL NEB SCH ×4 (00:23→18:56)
[2017-12-30] MEDS: PIPERACILLIN-TAZOB 3.375GM 100 ML IV SCH ×4 (01:32→17:18)
[2017-12-30] MEDS: ZINC OXIDE 20 % OINT 30GM TOP SCH ×4 (01:33→18:20)
[2017-12-30] MEDS: ACCU-CHEK COMFORT CURVE STRIP VI SCH ×4 (01:33→18:21)
[2017-12-30] MEDS: InsuLIN REG 1unit/0.01ml Soln (100units/ml) SC SCH ×4 (05:35→17:42)
[2017-12-30 05:59] LABS: Albumin 2.3 g/dL (3.4-5.0); Calcium 8.4 mg/dL (8.5-10.1); Magnesium 2.2 mg/dL (1.6-2.6); Potassium 3.6 mmol/L (3.5-5.1)
[2017-12-30 06:02] LABS: BUN/Creatinine Ratio 40.4; Bilirubin, Total 0.3 mg/dL (0.2-1.0); Phosphorus 2.9 mg/dL (2.5-4.90); Total Protein 7.1 g/dL (6.4-8.2)
[2017-12-30] MEDS: SODIUM CHLOR 0.9% PF (SALINE LOCK) 10ML VIAL/SYR IV SCH ×2 (11:34→21:18)
[2017-12-30] MEDS: PANTOPRAZOLE 40 MG/10 ML VIAL IV SCH (11:34)
[2017-12-30] MEDS ORDERED: EPOETIN ALFA 10,000 UNIT/1 ML VIAL SC ONE (14:15)
[2017-12-30] MEDS ORDERED: TPN PER PHARMACY IV NR ×9 (20:00)
[2017-12-30] MEDS: HYDROmorphone HCL 2 MG/ML VL IV PRN (21:27)
[2017-12-31] MEDS: IPRATROPIUM BROM 0.5 MG/2.5ML INH SOL NEB SCH ×4 (00:29→18:21)
[2017-12-31] MEDS: ALBUTEROL SULF 2.5 MG/0.5ML(0.5%) NEB SOLN NEB SCH ×4 (00:29→18:21)
[2017-12-31] MEDS: PIPERACILLIN-TAZOB 3.375GM 100 ML IV SCH ×4 (00:31→18:04)
[2017-12-31] MEDS: ACCU-CHEK COMFORT CURVE STRIP VI SCH ×4 (00:33→18:05)
[2017-12-31] MEDS: ZINC OXIDE 20 % OINT 30GM TOP SCH ×4 (00:33→18:05)
[2017-12-31 05:00] VITALS: BP 100/50
[2017-12-31] MEDS: InsuLIN REG 1unit/0.01ml Soln (100units/ml) SC SCH ×4 (06:00→18:04)
[2017-12-31 07:22] VITALS: BP 100/50
[2017-12-31 08:07] VITALS: BP 105/50
[2017-12-31] MEDS: SODIUM CHLOR 0.9% PF (SALINE LOCK) 10ML VIAL/SYR IV SCH ×2 (10:13→21:53)
[2017-12-31] MEDS: PANTOPRAZOLE 40 MG/10 ML VIAL IV SCH (10:13)
[2017-12-31 11:06] LABS: Albumin 2.2 g/dL (3.4-5.0); Calcium 8.1 mg/dL (8.5-10.1); Magnesium 2.1 mg/dL (1.6-2.6); Potassium 3.5 mmol/L (3.5-5.1)
[2017-12-31 11:11] LABS: Bilirubin, Total 0.3 mg/dL (0.2-1.0); Phosphorus 2.9 mg/dL (2.5-4.90); Total Protein 7.2 g/dL (6.4-8.2)
[2017-12-31 11:36] VITALS: BP 104/42
[2017-12-31 16:54] VITALS: BP 109/55
[2017-12-31] MEDS ORDERED: TPN PER PHARMACY IV NR ×9 (20:00)
[2017-12-31 22:00] VITALS: BP 109/46
[2018-01-01] MEDS: InsuLIN REG 1unit/0.01ml Soln (100units/ml) SC SCH ×4 (01:15→18:00)
[2018-01-01] MEDS: ACCU-CHEK COMFORT CURVE STRIP VI SCH ×4 (01:15→18:24)
[2018-01-01] MEDS: ZINC OXIDE 20 % OINT 30GM TOP SCH ×4 (01:16→18:24)
[2018-01-01] MEDS: PIPERACILLIN-TAZOB 3.375GM 100 ML IV SCH ×4 (01:16→18:25)
[2018-01-01 05:13] VITALS: BP 111/47
[2018-01-01] MEDS: IPRATROPIUM BROM 0.5 MG/2.5ML INH SOL NEB SCH ×4 (06:32→18:48)
[2018-01-01] MEDS: ALBUTEROL SULF 2.5 MG/0.5ML(0.5%) NEB SOLN NEB SCH ×4 (06:32→18:48)
[2018-01-01 06:56] LABS: Albumin 2.3 g/dL (3.4-5.0); Calcium 8.1 mg/dL (8.5-10.1); Magnesium 2.1 mg/dL (1.6-2.6); Potassium 3.1 mmol/L (3.5-5.1)
[2018-01-01 06:58] LABS: Bilirubin, Total 0.2 mg/dL (0.2-1.0); Phosphorus 2.7 mg/dL (2.5-4.90); Total Protein 7.3 g/dL (6.4-8.2)
[2018-01-01 07:00] LABS: Pre Albumin 17.9 mg/dL (20.0-40.0)
[2018-01-01 09:12] VITALS: BP 117/43
[2018-01-01] MEDS: PANTOPRAZOLE 40 MG/10 ML VIAL IV SCH (10:44)
[2018-01-01] MEDS: SODIUM CHLOR 0.9% PF (SALINE LOCK) 10ML VIAL/SYR IV SCH ×2 (10:44→22:06)
[2018-01-01] MEDS ORDERED: POTASSIUM PHOSPHATE 44 MEQ in D5W 5% 250 ML IV ONE (11:00)
[2018-01-01 13:12] VITALS: BP 110/49
[2018-01-01] MEDS ORDERED: CATHFLO ACTIVASE (ALTEPLASE) 2 MG VIAL IV ONE (13:15)
[2018-01-01 16:37] VITALS: BP 110/41
[2018-01-01] MEDS ORDERED: TPN PER PHARMACY IV NR ×9 (20:00)
[2018-01-01 22:00] VITALS: BP 104/39
[2018-01-02] MEDS: IPRATROPIUM BROM 0.5 MG/2.5ML INH SOL NEB SCH ×4 (00:03→18:21)
[2018-01-02] MEDS: ALBUTEROL SULF 2.5 MG/0.5ML(0.5%) NEB SOLN NEB SCH ×4 (00:04→18:21)
[2018-01-02] MEDS: ZINC OXIDE 20 % OINT 30GM TOP SCH ×4 (00:33→18:43)
[2018-01-02] MEDS: PIPERACILLIN-TAZOB 3.375GM 100 ML IV SCH ×3 (00:33→12:07)
[2018-01-02 04:59] VITALS: BP 107/51
[2018-01-02] MEDS: ACCU-CHEK COMFORT CURVE STRIP VI SCH ×4 (05:42→18:43)
[2018-01-02] MEDS: InsuLIN REG 1unit/0.01ml Soln (100units/ml) SC SCH ×4 (06:44→18:00)
[2018-01-02 08:24] LABS: Calcium 7.5 mg/dL (8.5-10.1); Potassium 3.3 mmol/L (3.5-5.1)
[2018-01-02 08:27] LABS: Bilirubin, Total 0.3 mg/dL (0.2-1.0); Phosphorus 3.4 mg/dL (2.5-4.90); Total Protein 6.6 g/dL (6.4-8.2)
[2018-01-02 09:00] VITALS: BP 101/42
[2018-01-02] MEDS: PANTOPRAZOLE 40 MG/10 ML VIAL IV SCH (09:03)
[2018-01-02] MEDS: SODIUM CHLOR 0.9% PF (SALINE LOCK) 10ML VIAL/SYR IV SCH ×2 (10:35→21:56)
[2018-01-02] MEDS: POTASSIUM CHL 20MEQ/100ML 100 ML IV SCH ×3 (12:07→15:00)
[2018-01-02 13:00] VITALS: BP 100/38
[2018-01-02] MEDS: ACETAMINOPHEN 650 MG RECT SUPP PR PRN (16:39)
[2018-01-02 17:00] VITALS: BP 119/65
[2018-01-02] MEDS ORDERED: TPN PER PHARMACY IV NR ×9 (20:00)
[2018-01-02 21:46] VITALS: BP 114/50
[2018-01-03] MEDS: ACCU-CHEK COMFORT CURVE STRIP VI SCH ×4 (00:04→18:22)
[2018-01-03] MEDS: ZINC OXIDE 20 % OINT 30GM TOP SCH ×4 (00:05→18:22)
[2018-01-03] MEDS: ALBUTEROL SULF 2.5 MG/0.5ML(0.5%) NEB SOLN NEB SCH ×4 (00:07→18:25)
[2018-01-03] MEDS: IPRATROPIUM BROM 0.5 MG/2.5ML INH SOL NEB SCH ×4 (00:07→18:25)
[2018-01-03 05:00] VITALS: BP 129/64
[2018-01-03 05:41] LABS: Albumin 2.2 g/dL (3.4-5.0); Calcium 8.1 mg/dL (8.5-10.1); Magnesium 2.1 mg/dL (1.6-2.6); Potassium 3.6 mmol/L (3.5-5.1)
[2018-01-03 05:45] LABS: Bilirubin, Total 0.2 mg/dL (0.2-1.0); Phosphorus 2.8 mg/dL (2.5-4.90); Total Protein 7.1 g/dL (6.4-8.2)
[2018-01-03] MEDS: InsuLIN REG 1unit/0.01ml Soln (100units/ml) SC SCH ×4 (05:56→18:00)
[2018-01-03] MEDS: PANTOPRAZOLE 40 MG/10 ML VIAL IV SCH (07:57)
[2018-01-03 09:00] VITALS: BP 108/50
[2018-01-03] MEDS: SODIUM CHLOR 0.9% PF (SALINE LOCK) 10ML VIAL/SYR IV SCH ×2 (10:01→21:58)
[2018-01-03 12:26] VITALS: BP 110/47
[2018-01-03 17:00] VITALS: BP 117/47
[2018-01-03] MEDS ORDERED: TPN PER PHARMACY IV NR ×9 (20:00)
[2018-01-03 22:16] VITALS: BP 98/53
[2018-01-04] MEDS: ZINC OXIDE 20 % OINT 30GM TOP SCH ×4 (00:03→18:11)
[2018-01-04] MEDS: ACCU-CHEK COMFORT CURVE STRIP VI SCH ×4 (00:03→18:10)
[2018-01-04] MEDS: ALBUTEROL SULF 2.5 MG/0.5ML(0.5%) NEB SOLN NEB SCH ×5 (00:04→23:56)
[2018-01-04] MEDS: IPRATROPIUM BROM 0.5 MG/2.5ML INH SOL NEB SCH ×5 (00:04→23:56)
[2018-01-04 05:00] VITALS: BP 105/59
[2018-01-04 05:22] LABS: Albumin 2.3 g/dL (3.4-5.0); Calcium 8.2 mg/dL (8.5-10.1); Magnesium 2.2 mg/dL (1.6-2.6); Potassium 3.7 mmol/L (3.5-5.1)
[2018-01-04 05:25] LABS: BUN/Creatinine Ratio 44.7; Bilirubin, Total 0.2 mg/dL (0.2-1.0); Phosphorus 3.5 mg/dL (2.5-4.90); Total Protein 7.5 g/dL (6.4-8.2)
[2018-01-04] MEDS: InsuLIN REG 1unit/0.01ml Soln (100units/ml) SC SCH ×4 (05:55→18:00)
[2018-01-04] MEDS: PANTOPRAZOLE 40 MG/10 ML VIAL IV SCH (08:01)
[2018-01-04 09:00] VITALS: BP 114/39
[2018-01-04] MEDS: SODIUM CHLOR 0.9% PF (SALINE LOCK) 10ML VIAL/SYR IV SCH ×2 (10:08→22:10)
[2018-01-04 13:00] VITALS: BP 110/41
[2018-01-04 16:50] VITALS: BP 134/40
[2018-01-04] MEDS ORDERED: TPN PER PHARMACY IV NR ×9 (20:00)
[2018-01-04 21:51] VITALS: BP 102/37
[2018-01-05] MEDS: ZINC OXIDE 20 % OINT 30GM TOP SCH ×5 (00:33→23:50)
[2018-01-05 05:02] LABS: Albumin 2.4 g/dL (3.4-5.0); Calcium 8.3 mg/dL (8.5-10.1); Magnesium 2.2 mg/dL (1.6-2.6); Potassium 3.9 mmol/L (3.5-5.1)
[2018-01-05 05:06] LABS: BUN/Creatinine Ratio 47.1; Bilirubin, Total 0.2 mg/dL (0.2-1.0); Phosphorus 3.5 mg/dL (2.5-4.90); Total Protein 7.6 g/dL (6.4-8.2)
[2018-01-05 05:23] VITALS: BP 118/41
[2018-01-05] MEDS: ACCU-CHEK COMFORT CURVE STRIP VI SCH ×5 (05:41→23:50)
[2018-01-05] MEDS: InsuLIN REG 1unit/0.01ml Soln (100units/ml) SC SCH ×5 (05:41→23:50)
[2018-01-05] MEDS: IPRATROPIUM BROM 0.5 MG/2.5ML INH SOL NEB SCH ×3 (06:28→18:17)
[2018-01-05] MEDS: ALBUTEROL SULF 2.5 MG/0.5ML(0.5%) NEB SOLN NEB SCH ×3 (06:28→18:17)
[2018-01-05] MEDS: PANTOPRAZOLE 40 MG/10 ML VIAL IV SCH (07:28)
[2018-01-05 09:00] VITALS: BP_SYST 146; BP_SYST 153; BP_DIAS 56; BP_DIAS 69
[2018-01-05] MEDS: SODIUM CHLOR 0.9% PF (SALINE LOCK) 10ML VIAL/SYR IV SCH ×2 (09:45→21:39)
[2018-01-05 16:37] VITALS: BP 116/46
[2018-01-05] MEDS ORDERED: TPN PER PHARMACY IV NR ×9 (20:00)
[2018-01-05 21:45] VITALS: BP 123/52
[2018-01-06] MEDS: ALBUTEROL SULF 2.5 MG/0.5ML(0.5%) NEB SOLN NEB SCH ×4 (00:23→18:22)
[2018-01-06] MEDS: IPRATROPIUM BROM 0.5 MG/2.5ML INH SOL NEB SCH ×4 (00:23→18:22)
[2018-01-06 05:41] VITALS: BP 109/47
[2018-01-06] MEDS: ACCU-CHEK COMFORT CURVE STRIP VI SCH ×3 (05:52→18:27)
[2018-01-06] MEDS: InsuLIN REG 1unit/0.01ml Soln (100units/ml) SC SCH ×3 (05:53→18:27)
[2018-01-06] MEDS: ZINC OXIDE 20 % OINT 30GM TOP SCH ×3 (05:53→18:28)
[2018-01-06 06:27] LABS: Albumin 2.3 g/dL (3.4-5.0); BUN/Creatinine Ratio 47.9; Calcium 8.3 mg/dL (8.5-10.1); Magnesium 2.4 mg/dL (1.6-2.6); Potassium 3.7 mmol/L (3.5-5.1)
[2018-01-06 06:30] LABS: Bilirubin, Total 0.2 mg/dL (0.2-1.0); Phosphorus 3.2 mg/dL (2.5-4.90); Total Protein 7.6 g/dL (6.4-8.2)
[2018-01-06] MEDS: PANTOPRAZOLE 40 MG/10 ML VIAL IV SCH (08:53)
[2018-01-06] MEDS: SODIUM CHLOR 0.9% PF (SALINE LOCK) 10ML VIAL/SYR IV SCH ×2 (08:54→22:12)
[2018-01-06 09:34] VITALS: BP 122/42
[2018-01-06 13:00] VITALS: BP 105/73
[2018-01-06 17:02] VITALS: BP 105/73
[2018-01-06 17:19] VITALS: BP 110/76
[2018-01-06] MEDS ORDERED: TPN PER PHARMACY IV NR ×9 (20:00)
[2018-01-06] MEDS: ACETAMINOPHEN 650 MG RECT SUPP PR PRN (21:53)
[2018-01-06 22:00] VITALS: BP 124/70
[2018-01-07] MEDS: ZINC OXIDE 20 % OINT 30GM TOP SCH ×4 (00:41→18:13)
[2018-01-07] MEDS: ACCU-CHEK COMFORT CURVE STRIP VI SCH ×4 (00:41→18:13)
[2018-01-07 05:00] VITALS: BP 108/62
[2018-01-07] MEDS: InsuLIN REG 1unit/0.01ml Soln (100units/ml) SC SCH ×4 (05:24→18:00)
[2018-01-07] MEDS: ALBUTEROL SULF 2.5 MG/0.5ML(0.5%) NEB SOLN NEB SCH ×4 (05:35→18:05)
[2018-01-07] MEDS: IPRATROPIUM BROM 0.5 MG/2.5ML INH SOL NEB SCH ×4 (05:35→18:05)
[2018-01-07 05:39] LABS: Potassium 3.9 mmol/L (3.5-5.1)
[2018-01-07 05:48] LABS: Albumin 2.2 g/dL (3.4-5.0); Bilirubin, Total 0.3 mg/dL (0.2-1.0); Calcium 8.1 mg/dL (8.5-10.1); Phosphorus 3.4 mg/dL (2.5-4.90); Total Protein 7.6 g/dL (6.4-8.2)
[2018-01-07 09:00] VITALS: BP 115/43
[2018-01-07] MEDS: PANTOPRAZOLE 40 MG/10 ML VIAL IV SCH (09:31)
[2018-01-07] MEDS: SODIUM CHLOR 0.9% PF (SALINE LOCK) 10ML VIAL/SYR IV SCH ×2 (09:32→20:38)
[2018-01-07 13:00] VITALS: BP 123/50
[2018-01-07 16:36] VITALS: BP_SYST 136; BP_SYST 146; BP_DIAS 63; BP_DIAS 80
[2018-01-07] MEDS ORDERED: TPN PER PHARMACY IV NR ×10 (20:00)
[2018-01-07 21:51] VITALS: BP 116/46
[2018-01-08 05:00] VITALS: BP 103/53
[2018-01-08] MEDS: ALBUTEROL SULF 2.5 MG/0.5ML(0.5%) NEB SOLN NEB SCH ×4 (05:30→18:03)
[2018-01-08] MEDS: IPRATROPIUM BROM 0.5 MG/2.5ML INH SOL NEB SCH ×4 (05:31→18:03)
[2018-01-08 06:03] LABS: Albumin 2.4 g/dL (3.4-5.0); Calcium 8.1 mg/dL (8.5-10.1); Magnesium 1.9 mg/dL (1.6-2.6)
[2018-01-08 06:06] LABS: BUN/Creatinine Ratio 51.9; Bilirubin, Total 0.2 mg/dL (0.2-1.0); Phosphorus 3.4 mg/dL (2.5-4.90); Total Protein 7.4 g/dL (6.4-8.2)
[2018-01-08 09:00] VITALS: BP 109/55
[2018-01-08] MEDS: InsuLIN REG 1unit/0.01ml Soln (100units/ml) SC SCH ×4 (09:18→18:00)
[2018-01-08] MEDS: ZINC OXIDE 20 % OINT 30GM TOP SCH ×4 (09:19→18:31)
[2018-01-08] MEDS: SODIUM CHLOR 0.9% PF (SALINE LOCK) 10ML VIAL/SYR IV SCH ×2 (09:19→21:45)
[2018-01-08] MEDS: PANTOPRAZOLE 40 MG/10 ML VIAL IV SCH (09:19)
[2018-01-08] MEDS: ACCU-CHEK COMFORT CURVE STRIP VI SCH ×4 (09:19→18:31)
[2018-01-08 12:00] VITALS: BP 121/60
[2018-01-08 16:00] VITALS: BP 124/51
[2018-01-08] MEDS ORDERED: FAT EMULSION IV NR ×10 (20:00)
[2018-01-08] MEDS ORDERED: POTASSIUM ACETATE IV NR ×10 (20:00)
[2018-01-08] MEDS ORDERED: [UNRECOGNIZED DRUG - OTHER] IV NR ×10 (20:00)
[2018-01-08] MEDS ORDERED: POTASSIUM PHOSPHATE IV NR ×10 (20:00)
[2018-01-08 21:30] VITALS: BP 98/45
[2018-01-09] VITALS (9 sets, daily range): BP systolic 95–146; BP diastolic 39–66
[2018-01-09] MEDS: IPRATROPIUM BROM 0.5 MG/2.5ML INH SOL NEB SCH ×4 (00:15→18:10)
[2018-01-09] MEDS: ALBUTEROL SULF 2.5 MG/0.5ML(0.5%) NEB SOLN NEB SCH ×4 (00:15→18:10)
[2018-01-09 05:44] LABS: Albumin 2.3 g/dL (3.4-5.0); Calcium 8.4 mg/dL (8.5-10.1); Magnesium 2.1 mg/dL (1.6-2.6); Phosphorus 3.5 mg/dL (2.5-4.90); Potassium 3.9 mmol/L (3.5-5.1)
[2018-01-09 05:51] LABS: BUN/Creatinine Ratio 51.9; Bilirubin, Total 0.2 mg/dL (0.2-1.0); Pre Albumin 13.4 mg/dL (20.0-40.0); Total Protein 7.8 g/dL (6.4-8.2)
[2018-01-09] MEDS: ZINC OXIDE 20 % OINT 30GM TOP SCH ×5 (05:55→23:57)
[2018-01-09] MEDS: InsuLIN REG 1unit/0.01ml Soln (100units/ml) SC SCH ×5 (06:00→23:56)
[2018-01-09] MEDS: ACCU-CHEK COMFORT CURVE STRIP VI SCH ×5 (06:00→23:56)
[2018-01-09] MEDS: PANTOPRAZOLE 40 MG/10 ML VIAL IV SCH (09:01)
[2018-01-09] MEDS ORDERED: VANCOMYCIN 1GM/250ML 250 ML IV ONE (09:30)
[2018-01-09] MEDS: SODIUM CHLOR 0.9% PF (SALINE LOCK) 10ML VIAL/SYR IV SCH ×2 (10:00→22:28)
[2018-01-09 15:16] LABS: Basophils # (auto) 0.1 uL; Eosinophils # (auto) 0.3 uL; Lymphocytes # (auto) 1.1 uL; Monocytes # (auto) 0.7 uL; Neutrophils # (auto) 4.5 uL; Platelet Count (auto) 175 10^3/uL (140-450); White Blood Cell 6.6 10^3/uL (4.4-10.8)
[2018-01-09 15:17] LABS: Basophils % (auto) 0.8 % (0.0-2.0); Hematocrit 22.4 % (36.0-46.0); Lymphocytes % (auto) 17.2 % (10.0-50.0); Mean Corpuscular Hgb Conc. 30.6 g/dL (32.0-36.0); Mean Corpuscular Volume 72.1 fL (80.0-100.0); Monocytes % (auto) 10.7 % (0.0-12.0); Neutrophils % (auto) 67.3 % (37.0-80.0); Nucleated Red Blood Cells % 0.1 %; Red Blood Cells 3.11 10^6/uL (4.0-5.20)
[2018-01-09 15:26] LABS: Red Cell Distribution Width 20.1 % (11.8-14.3)
[2018-01-09 15:27] LABS: Hemoglobin 6.8 g/dL (12.2-16.2)
[2018-01-09 15:30] LABS: INR 1.18 (0.9-1.15); Prothrombin Time 12.5 sec (9.27-12.13)
[2018-01-09] MEDS ORDERED: TPN PER PHARMACY IV NR ×10 (20:00)
[2018-01-09] MEDS: ACETAMINOPHEN 650 MG RECT SUPP PR PRN (20:45)
[2018-01-10] VITALS (14 sets, daily range): BP systolic 93–145; BP diastolic 36–71
[2018-01-10] MEDS: ALBUTEROL SULF 2.5 MG/0.5ML(0.5%) NEB SOLN NEB SCH ×4 (00:19→18:51)
[2018-01-10] MEDS: IPRATROPIUM BROM 0.5 MG/2.5ML INH SOL NEB SCH ×4 (00:19→18:51)
[2018-01-10] MEDS: ACCU-CHEK COMFORT CURVE STRIP VI SCH ×3 (05:55→18:19)
[2018-01-10] MEDS: InsuLIN REG 1unit/0.01ml Soln (100units/ml) SC SCH ×3 (05:55→18:00)
[2018-01-10] MEDS: ZINC OXIDE 20 % OINT 30GM TOP SCH ×3 (05:55→17:56)
[2018-01-10] MEDS ORDERED: SODIUM CHLORIDE LOCK 10 ML ONE (08:22)
[2018-01-10 08:32] LABS: Basophils # (auto) 0.1 uL; Basophils % (auto) 0.6 % (0.0-2.0); Eosinophils # (auto) 0.3 uL; Hematocrit 35.1 % (36.0-46.0); Hemoglobin 11.2 g/dL (12.2-16.2); Lymphocytes # (auto) 1.3 uL; Lymphocytes % (auto) 13.3 % (10.0-50.0); Mean Corpuscular Hemoglobin 24.2 pg (28.0-32.0); Mean Corpuscular Hgb Conc. 31.8 g/dL (32.0-36.0); Mean Corpuscular Volume 75.9 fL (80.0-100.0); Monocytes # (auto) 1.1 uL; Monocytes % (auto) 11.1 % (0.0-12.0); Neutrophils # (auto) 6.9 uL; Nucleated Red Blood Cells % 0.2 %; Platelet Count (auto) 152 10^3/uL (140-450); Red Blood Cells 4.62 10^6/uL (4.0-5.20); White Blood Cell 9.6 10^3/uL (4.4-10.8)
[2018-01-10 08:35] LABS: Albumin 2.4 g/dL (3.4-5.0); Calcium 8.5 mg/dL (8.5-10.1); Magnesium 2.2 mg/dL (1.6-2.6); Potassium 4.7 mmol/L (3.5-5.1)
[2018-01-10 08:37] LABS: Red Cell Distribution Width 20.7 % (11.8-14.3)
[2018-01-10] MEDS ORDERED: ceFAZolin 1GM/50ML 50 ML IV ONE (08:37)
[2018-01-10 08:38] LABS: Bilirubin, Total 0.9 mg/dL (0.2-1.0); Phosphorus 3.6 mg/dL (2.5-4.90); Total Protein 8.2 g/dL (6.4-8.2)
[2018-01-10] MEDS: PANTOPRAZOLE 40 MG/10 ML VIAL IV SCH (08:53)
[2018-01-10] MEDS: SODIUM CHLOR 0.9% PF (SALINE LOCK) 10ML VIAL/SYR IV SCH ×2 (10:22→22:32)
[2018-01-10] MEDS ORDERED: EPINEPHrine HCL 1 MG/10 ML SYRG ONE (12:20)
[2018-01-10] MEDS: MIDAZOLAM HCL 5 MG/ML-1ML VIAL ONE ×2 (12:51→13:09)
[2018-01-10] MEDS: fentaNYL CITRATE 100 MCG/2 ML VL ONE ×2 (12:51→13:09)
[2018-01-10] MEDS ORDERED: TPN PER PHARMACY IV NR ×10 (20:00)
[2018-01-11] MEDS: InsuLIN REG 1unit/0.01ml Soln (100units/ml) SC SCH ×4 (00:32→17:33)
[2018-01-11] MEDS: ACCU-CHEK COMFORT CURVE STRIP VI SCH ×4 (00:32→17:33)
[2018-01-11] MEDS: ZINC OXIDE 20 % OINT 30GM TOP SCH ×4 (00:33→17:33)
[2018-01-11] MEDS: IPRATROPIUM BROM 0.5 MG/2.5ML INH SOL NEB SCH ×5 (00:43→23:38)
[2018-01-11] MEDS: ALBUTEROL SULF 2.5 MG/0.5ML(0.5%) NEB SOLN NEB SCH ×5 (00:43→23:38)
[2018-01-11 05:00] VITALS: BP 112/48
[2018-01-11 09:00] VITALS: BP 118/53
[2018-01-11 09:29] LABS: Albumin 2.2 g/dL (3.4-5.0); Calcium 8.2 mg/dL (8.5-10.1); Magnesium 2.1 mg/dL (1.6-2.6)
[2018-01-11 09:32] LABS: BUN/Creatinine Ratio 51.9; Bilirubin, Total 0.5 mg/dL (0.2-1.0); Phosphorus 2.8 mg/dL (2.5-4.90); Total Protein 7.8 g/dL (6.4-8.2)
[2018-01-11] MEDS: PANTOPRAZOLE 40 MG/10 ML VIAL IV SCH (10:41)
[2018-01-11] MEDS: SODIUM CHLOR 0.9% PF (SALINE LOCK) 10ML VIAL/SYR IV SCH ×2 (10:41→21:59)
[2018-01-11 13:00] VITALS: BP 115/44
[2018-01-11] MEDS: PIPERACILLIN-TAZOB 3.375GM 100 ML IV SCH ×2 (13:13→18:18)
[2018-01-11 17:00] VITALS: BP 98/44
[2018-01-11] MEDS ORDERED: TPN PER PHARMACY IV NR ×11 (20:00)
[2018-01-11 22:00] VITALS: BP 103/64
[2018-01-12] MEDS: ACCU-CHEK COMFORT CURVE STRIP VI SCH ×4 (00:23→17:22)
[2018-01-12] MEDS: ZINC OXIDE 20 % OINT 30GM TOP SCH ×4 (00:23→18:00)
[2018-01-12] MEDS: PIPERACILLIN-TAZOB 3.375GM 100 ML IV SCH ×4 (01:00→18:47)
[2018-01-12] MEDS: ACETAMINOPHEN 650 MG RECT SUPP PR PRN (04:25)
[2018-01-12 05:00] VITALS: BP 83/42
[2018-01-12] MEDS: IPRATROPIUM BROM 0.5 MG/2.5ML INH SOL NEB SCH ×3 (05:32→18:04)
[2018-01-12] MEDS: ALBUTEROL SULF 2.5 MG/0.5ML(0.5%) NEB SOLN NEB SCH ×3 (05:32→18:04)
[2018-01-12 05:35] LABS: Calcium 8.2 mg/dL (8.5-10.1); Magnesium 2.1 mg/dL (1.6-2.6)
[2018-01-12 05:40] LABS: BUN/Creatinine Ratio 44.4; Bilirubin, Total 0.5 mg/dL (0.2-1.0); Phosphorus 3.4 mg/dL (2.5-4.90); Pre Albumin 10.4 mg/dL (20.0-40.0); Total Protein 7.5 g/dL (6.4-8.2)
[2018-01-12] MEDS: InsuLIN REG 1unit/0.01ml Soln (100units/ml) SC SCH ×4 (06:00→17:22)
[2018-01-12] MEDS: PANTOPRAZOLE 40 MG/10 ML VIAL IV SCH (08:17)
[2018-01-12 09:33] VITALS: BP 105/78
[2018-01-12] MEDS: SODIUM CHLOR 0.9% PF (SALINE LOCK) 10ML VIAL/SYR IV SCH ×2 (10:00→22:06)
[2018-01-12 13:08] VITALS: BP 114/44
[2018-01-12 17:47] VITALS: BP 108/44
[2018-01-12] MEDS ORDERED: FAT EMULSION IV NR ×11 (20:00)
[2018-01-12] MEDS ORDERED: POTASSIUM CHLORIDE IV NR ×11 (20:00)
[2018-01-12] MEDS ORDERED: [UNRECOGNIZED DRUG - OTHER] IV NR ×11 (20:00)
[2018-01-12] MEDS ORDERED: SODIUM PHOSPHATES IV NR ×11 (20:00)
[2018-01-12 22:00] VITALS: BP 102/39
[2018-01-13] MEDS: IPRATROPIUM BROM 0.5 MG/2.5ML INH SOL NEB SCH ×4 (00:13→18:12)
[2018-01-13] MEDS: ALBUTEROL SULF 2.5 MG/0.5ML(0.5%) NEB SOLN NEB SCH ×4 (00:13→18:12)
[2018-01-13] MEDS: ACCU-CHEK COMFORT CURVE STRIP VI SCH ×5 (00:15→23:56)
[2018-01-13] MEDS: ZINC OXIDE 20 % OINT 30GM TOP SCH ×5 (00:15→23:57)
[2018-01-13] MEDS: PIPERACILLIN-TAZOB 3.375GM 100 ML IV SCH ×4 (01:13→17:56)
[2018-01-13 05:00] VITALS: BP 116/41
[2018-01-13] MEDS: InsuLIN REG 1unit/0.01ml Soln (100units/ml) SC SCH ×5 (06:00→23:56)
[2018-01-13 06:39] LABS: Potassium 4.2 mmol/L (3.5-5.1)
[2018-01-13 06:54] LABS: Albumin 2.1 g/dL (3.4-5.0); BUN/Creatinine Ratio 44.4; Bilirubin, Total 0.4 mg/dL (0.2-1.0); Calcium 8.2 mg/dL (8.5-10.1); Magnesium 2.2 mg/dL (1.6-2.6); Phosphorus 3.3 mg/dL (2.5-4.90); Total Protein 8.1 g/dL (6.4-8.2)
[2018-01-13 08:24] VITALS: BP 114/45
[2018-01-13] MEDS: PANTOPRAZOLE 40 MG/10 ML VIAL IV SCH (08:39)
[2018-01-13] MEDS: SODIUM CHLOR 0.9% PF (SALINE LOCK) 10ML VIAL/SYR IV SCH ×2 (10:37→22:18)
[2018-01-13 13:15] VITALS: BP 121/52
[2018-01-13 16:28] VITALS: BP 111/68
[2018-01-13] MEDS: Jevity 1.2 Cal/Fiber 1 Liter GT SCH (19:03)
[2018-01-13] MEDS ORDERED: TPN PER PHARMACY IV NR ×11 (20:00)
[2018-01-13 22:25] VITALS: BP 146/78
[2018-01-14] MEDS: IPRATROPIUM BROM 0.5 MG/2.5ML INH SOL NEB SCH ×5 (00:16→23:46)
[2018-01-14] MEDS: ALBUTEROL SULF 2.5 MG/0.5ML(0.5%) NEB SOLN NEB SCH ×5 (00:16→23:46)
[2018-01-14] MEDS: PIPERACILLIN-TAZOB 3.375GM 100 ML IV SCH ×4 (00:58→19:27)
[2018-01-14 05:14] LABS: Calcium 8.2 mg/dL (8.5-10.1); Magnesium 2.2 mg/dL (1.6-2.6); Potassium 4.3 mmol/L (3.5-5.1)
[2018-01-14 05:15] VITALS: BP 112/47
[2018-01-14 05:17] LABS: BUN/Creatinine Ratio 43.9; Bilirubin, Total 0.3 mg/dL (0.2-1.0); Total Protein 7.6 g/dL (6.4-8.2)
[2018-01-14] MEDS: ACCU-CHEK COMFORT CURVE STRIP VI SCH ×3 (05:59→18:04)
[2018-01-14] MEDS: ZINC OXIDE 20 % OINT 30GM TOP SCH ×3 (05:59→18:25)
[2018-01-14] MEDS: InsuLIN REG 1unit/0.01ml Soln (100units/ml) SC SCH ×3 (05:59→18:04)
[2018-01-14] MEDS: PANTOPRAZOLE 40 MG/10 ML VIAL IV SCH (08:00)
[2018-01-14 09:18] VITALS: BP 119/43
[2018-01-14] MEDS: SODIUM CHLOR 0.9% PF (SALINE LOCK) 10ML VIAL/SYR IV SCH ×2 (10:00→21:54)
[2018-01-14 12:22] VITALS: BP 149/56
[2018-01-14 17:41] VITALS: BP 119/57
[2018-01-14] MEDS: ACETAMINOPHEN 650 MG RECT SUPP PR PRN (18:26)
[2018-01-14] MEDS ORDERED: TPN PER PHARMACY IV NR ×9 (20:00)
[2018-01-14 22:00] VITALS: BP 109/57
[2018-01-14] MEDS: Jevity 1.2 Cal/Fiber 1 Liter GT SCH (22:26)
[2018-01-15] MEDS: ZINC OXIDE 20 % OINT 30GM TOP SCH ×3 (00:04→12:00)
[2018-01-15] MEDS: ACCU-CHEK COMFORT CURVE STRIP VI SCH ×3 (00:04→12:00)
[2018-01-15] MEDS: PIPERACILLIN-TAZOB 3.375GM 100 ML IV SCH ×4 (00:46→19:00)
[2018-01-15 03:15] VITALS: BP 119/57
[2018-01-15 05:22] VITALS: BP 96/58
[2018-01-15] MEDS: ALBUTEROL SULF 2.5 MG/0.5ML(0.5%) NEB SOLN NEB SCH ×3 (05:36→18:17)
[2018-01-15] MEDS: IPRATROPIUM BROM 0.5 MG/2.5ML INH SOL NEB SCH ×3 (05:36→18:17)
[2018-01-15 05:43] LABS: Albumin 2.1 g/dL (3.4-5.0); Calcium 8.3 mg/dL (8.5-10.1); Magnesium 2.3 mg/dL (1.6-2.6); Potassium 4.2 mmol/L (3.5-5.1)
[2018-01-15 05:48] LABS: BUN/Creatinine Ratio 54.9; Bilirubin, Total 0.3 mg/dL (0.2-1.0); Phosphorus 3.7 mg/dL (2.5-4.90); Pre Albumin 12.3 mg/dL (20.0-40.0); Total Protein 7.8 g/dL (6.4-8.2)
[2018-01-15] MEDS: InsuLIN REG 1unit/0.01ml Soln (100units/ml) SC SCH ×3 (06:00→12:00)
[2018-01-15] MEDS: PANTOPRAZOLE 40 MG/10 ML VIAL IV SCH (08:28)
[2018-01-15 09:00] VITALS: BP 119/42
[2018-01-15] MEDS: SODIUM CHLOR 0.9% PF (SALINE LOCK) 10ML VIAL/SYR IV SCH (10:00)
[2018-01-15 13:00] VITALS: BP 110/44
[2018-01-15 17:12] VITALS: BP 113/42
[2018-01-15] MEDS ORDERED: FAT EMULSION IV NR ×10 (20:00)
[2018-01-15] MEDS ORDERED: [UNRECOGNIZED DRUG - OTHER] IV NR ×10 (20:00)
[2018-01-15] MEDS ORDERED: POTASSIUM ACETATE IV NR ×10 (20:00)
[2018-01-15] MEDS ORDERED: SODIUM PHOSPHATES IV NR ×10 (20:00)
[2018-01-15 22:00] VITALS: BP 108/43
[2018-01-16] MEDS: IPRATROPIUM BROM 0.5 MG/2.5ML INH SOL NEB SCH ×4 (00:06→18:33)
[2018-01-16] MEDS: ALBUTEROL SULF 2.5 MG/0.5ML(0.5%) NEB SOLN NEB SCH ×4 (00:06→18:32)
[2018-01-16] MEDS: PIPERACILLIN-TAZOB 3.375GM 100 ML IV SCH ×3 (02:19→15:06)
[2018-01-16] MEDS: SODIUM CHLOR 0.9% PF (SALINE LOCK) 10ML VIAL/SYR IV SCH ×3 (02:20→22:00)
[2018-01-16 05:00] VITALS: BP 119/44
[2018-01-16 06:17] LABS: Calcium 8.4 mg/dL (8.5-10.1); Magnesium 2.1 mg/dL (1.6-2.6); Potassium 3.6 mmol/L (3.5-5.1)
[2018-01-16 06:21] LABS: Bilirubin, Total 0.3 mg/dL (0.2-1.0); Phosphorus 3.1 mg/dL (2.5-4.90); Total Protein 7.6 g/dL (6.4-8.2)
[2018-01-16] MEDS ORDERED: Jevity 1.2 Cal/Fiber 1 Liter GT SCH (06:30)
[2018-01-16 08:00] VITALS: BP 111/49
[2018-01-16 09:00] VITALS: BP 111/49
[2018-01-16] MEDS: PANTOPRAZOLE 40 MG/10 ML VIAL IV SCH (09:09)
[2018-01-16 12:00] VITALS: BP 100/32
[2018-01-16 17:00] VITALS: BP 103/50
[2018-01-16] MEDS: FLUCONAZOLE 100 MG TAB PO SCH (17:47)
[2018-01-16 21:00] VITALS: BP 120/70
[2018-01-17] MEDS: ALBUTEROL SULF 2.5 MG/0.5ML(0.5%) NEB SOLN NEB SCH ×4 (00:09→18:27)
[2018-01-17] MEDS: IPRATROPIUM BROM 0.5 MG/2.5ML INH SOL NEB SCH ×4 (00:09→18:26)
[2018-01-17 05:00] VITALS: BP 97/58
[2018-01-17 08:00] VITALS: BP 137/50
[2018-01-17 09:00] VITALS: BP 137/50
[2018-01-17] MEDS: PANTOPRAZOLE 40 MG/10 ML VIAL IV SCH (09:37)
[2018-01-17] MEDS: FLUCONAZOLE 100 MG TAB PO SCH (09:37)
[2018-01-17] MEDS: SODIUM CHLOR 0.9% PF (SALINE LOCK) 10ML VIAL/SYR IV SCH ×2 (09:37→22:21)
[2018-01-17 13:00] VITALS: BP 111/44
[2018-01-17 16:54] VITALS: BP 111/46
[2018-01-17 21:30] VITALS: BP 122/54
== END 2018-01-17 23:58 | DRG 393 ==
LOC: ER 15:53 → EDBD 15:53 → TELE 15:54 → TELE-CENTR 23:42
PROVIDERS: ADMIT Nurse Practitioner Family; ATTEND Internal Medicine Cardiovascular Disease
PROC: 5A1955Z Respiratory Ventilation, Greater than 96 Consecutive Hours (ICD-10-PCS; principal; 2017-12-21)
PROC: 0BH17EZ Insertion of Endotracheal Airway into Trachea, Via Natural or Artificial Opening (ICD-10-PCS; 2017-12-21)
PROC: 02HV33Z Insertion of Infusion Device into Superior Vena Cava, Percutaneous Approach (ICD-10-PCS; 2017-12-21)
PROC: 30233N1 Transfusion of Nonautologous Red Blood Cells into Peripheral Vein, Percutaneous Approach (ICD-10-PCS; 2018-01-09)
PROC: 0DH68UZ Insertion of Feeding Device into Stomach, Via Natural or Artificial Opening Endoscopic (ICD-10-PCS; 2018-01-10)
DX: K94.22 Gastrostomy infection (principal); A41.9 Sepsis, unspecified organism; J96.90 Respiratory failure, unspecified, unspecified whether with hypoxia or hypercapnia; J18.1 Lobar pneumonia, unspecified organism; N30.00 Acute cystitis without hematuria; J44.0 Chronic obstructive pulmonary disease with (acute) lower respiratory infection; K56.7 Ileus, unspecified; E44.1 Mild protein-calorie malnutrition; K94.23 Gastrostomy malfunction; N20.0 Calculus of kidney; J44.9 Chronic obstructive pulmonary disease, unspecified; E87.6 Hypokalemia; K21.9 Gastro-esophageal reflux disease without esophagitis; F41.9 Anxiety disorder, unspecified; F32.9 Major depressive disorder, single episode, unspecified; I11.0 Hypertensive heart disease with heart failure; I48.91 Unspecified atrial fibrillation; I50.9 Heart failure, unspecified; Y83.8 Other surgical procedures as the cause of abnormal reaction of the patient, or of later complication, without mention of misadventure at the time of the procedure; K94.21 Gastrostomy hemorrhage; N28.1 Cyst of kidney, acquired; Z66 Do not resuscitate; Z79.01 Long term (current) use of anticoagulants; Z82.49 Family history of ischemic heart disease and other diseases of the circulatory system; Z88.2 Allergy status to sulfonamides; Z91.040 Latex allergy status; Z88.5 Allergy status to narcotic agent; Z93.0 Tracheostomy status; Z68.36 Body mass index [BMI] 36.0-36.9, adult
CPT/HCPCS: 36415; 36569; 71045; 74021; 74176; 80048; 80053; 80076; 81001; 82040; 82270; 82962; 83690; 83735; 84100; 84478; 85014; 85018; 85025; 85610; 86850; 86870; 86900; 86901; 86902; 86922; 87081; 87086; 87088; 87186; 87205; 87493; 94002; 94003; 94640; 96361; 96365; 96367; 96375; A4605; A6257; C9113; G0378; J0610; J0690; J0696; J0885; J1815; J1956; J2001; J2250; J2543; J3480; J7060

== ENCOUNTER 2018-02-13 04:12 | Emergency (ER) | payer MEDICARE, MEDICAID ==
[~2018-02-13] VITALS: Ht 160 cm; Wt 63.5 kg
[~2018-02-13 04:12] MED LIST changes: +ACET-1156 PO; -AML5T PO; +AMLO5TAB13 GT; +APIX2.5T GT; -APIX5TAB OR; -BIMA0.01 RIGHTEYE; +BIS10RS PR; -BISA-51 PO; -BRIN1SUS6 OP; +DIPH2.5T73 GT; +FAM20T GT; -FAM20T PO; -IPRA0.03; +LACT10SO3 PO; -MAGNSUS71 PO; +METO-281 GT; +MOMLQ BC; +MULT1TAB61 GT; -PRED1SUS3 OP
[2018-02-13 05:12] LABS: Basophils # (auto) 0.1 uL; Eosinophils # (auto) 0.3 uL; Lymphocytes # (auto) 1.8 uL; Mean Corpuscular Hemoglobin 22.9 pg (28.0-32.0); Mean Corpuscular Hgb Conc. 31.1 g/dL (32.0-36.0); Monocytes # (auto) 0.5 uL; Platelet Count (auto) 305 10^3/uL (140-450)
[2018-02-13 05:13] LABS: Basophils % (auto) 1.1 % (0.0-2.0); Hematocrit 37.8 % (36.0-46.0); Hemoglobin 11.8 g/dL (12.2-16.2); Lymphocytes % (auto) 24.7 % (10.0-50.0); Mean Corpuscular Volume 73.5 fL (80.0-100.0); Monocytes % (auto) 6.6 % (0.0-12.0); Neutrophils # (auto) 4.7 uL; Neutrophils % (auto) 63.6 % (37.0-80.0); Nucleated Red Blood Cells % 0.1 %; Red Blood Cells 5.14 10^6/uL (4.0-5.20); White Blood Cell 7.4 10^3/uL (4.4-10.8)
[2018-02-13 05:28] LABS: Red Cell Distribution Width 23.4 % (11.8-14.3)
[2018-02-13 05:29] LABS: Alanine Aminotransferase 33 U/L (13-56); Anion Gap 8 (5-15); Aspartate Aminotransferase 24 U/L (15-37); BUN/Creatinine Ratio 37.3; Blood Urea Nitrogen 22 mg/dL (7-18); Calcium 8.8 mg/dL (8.5-10.1); Carbon Dioxide 25 mmol/L (21-32); Chloride 111 mmol/L (98-107); GFR African American 127 mL/min; GFR Non-African American 105 mL/min; Glucose 113 mg/dL (74-106); Magnesium 2.2 mg/dL (1.6-2.6); Potassium 4.2 mmol/L (3.5-5.1); Sodium 144 mmol/L (136-145)
[2018-02-13 05:31] LABS: INR 1.07 (0.9-1.15); Partial Thromboplastin Time 27.1 sec (23.78-33.04); Prothrombin Time 11.4 sec (9.27-12.13)
[2018-02-13 05:34] LABS: Alkaline Phosphatase 124 U/L (45-117); Bilirubin, Total 0.2 mg/dL (0.2-1.0); Total Protein 8.9 g/dL (6.4-8.2)
[2018-02-13 05:52] VITALS: BP 140/75
[2018-02-13 10:31] VITALS: BP 91/70
== END 2018-02-13 11:00 | disposition home or self-care (01) ==
LOC: EDBD 04:12 → ER 04:13
DX: J95.03 Malfunction of tracheostomy stoma (principal); G35 Multiple sclerosis; I48.91 Unspecified atrial fibrillation; J44.9 Chronic obstructive pulmonary disease, unspecified; I11.0 Hypertensive heart disease with heart failure; I50.9 Heart failure, unspecified; Z88.5 Allergy status to narcotic agent; Z88.2 Allergy status to sulfonamides; Z91.040 Latex allergy status; Z79.899 Other long term (current) drug therapy; Z90.49 Acquired absence of other specified parts of digestive tract; Y83.8 Other surgical procedures as the cause of abnormal reaction of the patient, or of later complication, without mention of misadventure at the time of the procedure; Y82.8 Other medical devices associated with adverse incidents
CPT/HCPCS: 36415; 36600; 71045; 80053; 82805; 83735; 84484; 85025; 85610; 85730; 87070; 87077; 87186; 87205; 93005; 94761; 99284; A4605; 94003

== ENCOUNTER 2018-10-14 23:30 | Inpatient (IN) | payer MEDICARE, MEDICAID ==
[~2018-10-14] VITALS: Ht 160 cm; Wt 66.1 kg
[~2018-10-14 23:30] MED LIST changes: -AMLO5TAB13 GT; +AMLO5TAB15 GT; +FREE WATER GT; -HYDR-4683 GT; +HYDR-4833 GT; +MUPI2OIN2 EACHNOSTRI
[2018-10-14] MEDS ORDERED: SODIUM CHLORIDE 0.9% 500 ML IV ONE (23:45)
[2018-10-14] MEDS ORDERED: DILTIAZEM HCL 25 MG/5 ML VIAL IV ONE (23:45)
[2018-10-15] VITALS (10 sets, daily range): BP systolic 99–137; BP diastolic 24–58
[2018-10-15] MEDS ORDERED: ACETAMINOPHEN 650 MG RECT SUPP PR ONE ×2
[2018-10-15] MEDS ORDERED: DILTIAZEM HCL 25 MG/5 ML VIAL IV ONE
[2018-10-15] MEDS ORDERED: cefTRIAXone 1GM/50ML D5W 50 ML IV ONE
[2018-10-15 00:18] LABS: Urine Bacteria NONE SEEN /hpf (None Seen); Urine Blood 1+ /uL (Negative); Urine Specific Gravity 1.018 (1.001-1.035); Urine WBC 1575 /hpf (0 - 5)
[2018-10-15 00:27] LABS: INR 1.16 (0.9-1.15); Partial Thromboplastin Time 25.1 sec (23.64-32.05)
[2018-10-15 00:30] LABS: Alanine Aminotransferase 20 U/L (13-56); Albumin 2.6 g/dL (3.4-5.0); Anion Gap 10 (5-15); Aspartate Aminotransferase 39 U/L (15-37); BUN/Creatinine Ratio 32.9; Blood Urea Nitrogen 26 mg/dL (7-18); Calcium 8.8 mg/dL (8.5-10.1); Carbon Dioxide 22 mmol/L (21-32); Chloride 112 mmol/L (98-107); GFR African American 90 mL/min; GFR Non-African American 75 mL/min; Glucose 269 mg/dL (74-106); Potassium 5.2 mmol/L (3.5-5.1); Sodium 144 mmol/L (136-145)
[2018-10-15 00:32] LABS: Lactic Acid w/Reflex 3.5 mmol/L (0.4-2.0)
[2018-10-15 00:33] LABS: Hemoglobin 8.8 g/dL (12.2-16.2)
[2018-10-15 00:34] LABS: Hematocrit 30.8 % (36.0-46.0); Mean Corpuscular Hemoglobin 21.9 pg (28.0-32.0); Mean Corpuscular Hgb Conc. 28.5 g/dL (32.0-36.0); Mean Corpuscular Volume 76.9 fL (80.0-100.0); Platelet Count (auto) 437 10^3/uL (140-450); Red Blood Cells 4.01 10^6/uL (4.0-5.20); White Blood Cell 23.5 10^3/uL (4.4-10.8)
[2018-10-15 00:37] LABS: Band Neutrophils % (manual) 0; Basophils % (manual) 0 (0.0-2.0); Blast Cells 0; Metamyelocytes % 0; Myelocytes % 0; Promyelocytes % 0; Reactive Lymphocytes 0; Red Cell Distribution Width 21.5 % (11.8-14.3)
[2018-10-15 00:38] LABS: Alkaline Phosphatase 117 U/L (45-117); Bilirubin, Total 0.2 mg/dL (0.2-1.0); Total Protein 8.4 g/dL (6.4-8.2)
[2018-10-15] MEDS ORDERED: SODIUM CHLORIDE 0.9% 1,000 ML IV ONE (00:41)
[2018-10-15] MEDS ORDERED: SODIUM CHLORIDE 0.9% 500 ML IV ONE ×2 (00:41→01:45)
[2018-10-15 00:45] LABS: Eosinophils % (manual) 2 (0-7); Lymphocytes % (manual) 31 (10.0-50.0); Monocytes % (manual) 5 (0-12)
[2018-10-15] MEDS ORDERED: LEVOFLOXACIN 500MG 100 ML IV ONE (02:00)
[2018-10-15] MEDS ORDERED: SODIUM ZIRCONIUM CYCL 10 GM PAK PO ONE (04:30)
[2018-10-15] MEDS ORDERED: SODIUM BICARBONATE 8.4% INJ 50ML SYRINGE IV ONE (04:30)
[2018-10-15] MEDS: SODIUM CHLORIDE 0.9% 1,000 ML IV SCH ×2 (05:06→18:35)
[2018-10-15] MEDS ORDERED: TEMAZEPAM 15 MG CAP PO PRN (05:15)
[2018-10-15] MEDS ORDERED: NITROGLYCERIN 0.4 MG SL TAB SL PRN (05:15)
[2018-10-15] MEDS ORDERED: ONDANSETRON HCL 4 MG/2 ML VIAL IV PRN (05:15)
[2018-10-15] MEDS ORDERED: MORPHINE SULF INJ 2 MG/ML SYRINGE 1ML IV PRN (05:15)
[2018-10-15] MEDS ORDERED: ACETAMINOPHEN 325 MG TAB PO PRN (05:15)
[2018-10-15] MEDS ORDERED: SODIUM BICARBONATE 8.4% INJ 50ML SYRINGE ONE (06:00)
[2018-10-15 07:37] LABS: Potassium 3.7 mmol/L (3.5-5.1)
[2018-10-15 07:44] LABS: Calcium 7.5 mg/dL (8.5-10.1)
[2018-10-15] MEDS: APIXABAN 2.5 MG TAB PO SCH ×2 (10:41→22:57)
[2018-10-16] VITALS (21 sets, daily range): BP systolic 113–156; BP diastolic 43–73
[2018-10-16] MEDS: LEVOFLOXACIN 250MG 50 ML IV SCH ×2 (00:20→23:34)
[2018-10-16] MEDS: SODIUM CHLORIDE 0.9% 1,000 ML IV SCH ×2 (02:00→23:34)
[2018-10-16 05:52] LABS: Basophils # (auto) 0.1 uL; Eosinophils # (auto) 0.4 uL; Mean Corpuscular Volume 75.3 fL (80.0-100.0); Neutrophils # (auto) 5.9 uL
[2018-10-16 05:54] LABS: Basophils % (auto) 0.7 % (0.0-2.0); Eosinophils % (auto) 4.7 % (0.0-7.0); Hematocrit 20.8 % (36.0-46.0); Lymphocytes # (auto) 1.3 uL; Lymphocytes % (auto) 15.9 % (10.0-50.0); Mean Corpuscular Hemoglobin 22.7 pg (28.0-32.0); Mean Corpuscular Hgb Conc. 30.2 g/dL (32.0-36.0); Monocytes # (auto) 0.6 uL; Monocytes % (auto) 6.9 % (0.0-12.0); Neutrophils % (auto) 71.8 % (37.0-80.0); Platelet Count (auto) 210 10^3/uL (140-450); Red Blood Cells 2.76 10^6/uL (4.0-5.20); White Blood Cell 8.2 10^3/uL (4.4-10.8)
[2018-10-16 05:57] LABS: Red Cell Distribution Width 21.2 % (11.8-14.3)
[2018-10-16 05:58] LABS: Hemoglobin 6.3 g/dL (12.2-16.2)
[2018-10-16 06:17] LABS: Potassium 3.1 mmol/L (3.5-5.1)
[2018-10-16 06:27] LABS: Albumin 2.1 g/dL (3.4-5.0); BUN/Creatinine Ratio 45.7; Bilirubin, Total 0.2 mg/dL (0.2-1.0); Calcium 7.3 mg/dL (8.5-10.1); Total Protein 6.7 g/dL (6.4-8.2)
[2018-10-16] MEDS: APIXABAN 2.5 MG TAB PO SCH ×2 (10:00→21:29)
[2018-10-16] MEDS ORDERED: POTASSIUM CHLORIDE 60 MEQ, LIDOCAINE 1% (LOCAL ANESTH.) 6 ML in SODIUM CHL 0.9% 500 ML IV ONE (14:45)
[2018-10-17] VITALS (7 sets, daily range): BP systolic 99–150; BP diastolic 47–80
[2018-10-17 06:04] LABS: Basophils # (auto) 0.1 uL; Eosinophils # (auto) 0.3 uL; Mean Corpuscular Hemoglobin 25.1 pg (28.0-32.0); Monocytes # (auto) 0.6 uL; Neutrophils # (auto) 6.8 uL; Neutrophils % (auto) 76.8 % (37.0-80.0); Nucleated Red Blood Cells % 0.1 %
[2018-10-17 06:06] LABS: Basophils % (auto) 1.2 % (0.0-2.0); Eosinophils % (auto) 3.3 % (0.0-7.0); Hematocrit 33.5 % (36.0-46.0); Hemoglobin 10.7 g/dL (12.2-16.2); Lymphocytes % (auto) 11.9 % (10.0-50.0); Mean Corpuscular Hgb Conc. 31.9 g/dL (32.0-36.0); Mean Corpuscular Volume 78.5 fL (80.0-100.0); Monocytes % (auto) 6.8 % (0.0-12.0); Platelet Count (auto) 218 10^3/uL (140-450); Red Blood Cells 4.27 10^6/uL (4.0-5.20); White Blood Cell 8.9 10^3/uL (4.4-10.8)
[2018-10-17 06:20] LABS: Red Cell Distribution Width 20.3 % (11.8-14.3)
[2018-10-17 06:45] LABS: Potassium 3.5 mmol/L (3.5-5.1)
[2018-10-17 06:56] LABS: Albumin 2.3 g/dL (3.4-5.0); BUN/Creatinine Ratio 28.6; Bilirubin, Total 0.5 mg/dL (0.2-1.0); Calcium 7.7 mg/dL (8.5-10.1); Total Protein 7.1 g/dL (6.4-8.2)
[2018-10-17] MEDS ORDERED: LEVOFLOXACIN 250MG 50 ML IV SCH (07:15)
[2018-10-17] MEDS: APIXABAN 2.5 MG TAB PO SCH (10:00)
[2018-10-17] MEDS: SODIUM CHLORIDE 0.9% 1,000 ML IV SCH (12:23)
[2018-10-17] MEDS ORDERED: TOBRAMYCIN PER PHARMACY 0 ML IV SCH (18:00)
[2018-10-17] MEDS: TOBRAMYCIN INJ 80 MG in D5W 5% 100 ML IV SCH (21:01)
[2018-10-17] MEDS: PANTOPRAZOLE 40 MG/10 ML VIAL INJ IV SCH (21:53)
[2018-10-18] VITALS (12 sets, daily range): BP systolic 121–156; BP diastolic 44–82
[2018-10-18] MEDS: SODIUM CHLORIDE 0.9% 1,000 ML IV SCH ×2 (04:00→17:00)
[2018-10-18 06:04] LABS: Basophils # (auto) 0.1 uL; Eosinophils # (auto) 0.3 uL; Lymphocytes # (auto) 1.5 uL; Monocytes # (auto) 0.8 uL; Neutrophils % (auto) 75.1 % (37.0-80.0)
[2018-10-18 06:08] LABS: Basophils % (auto) 1.2 % (0.0-2.0); Eosinophils % (auto) 2.7 % (0.0-7.0); Hematocrit 34.4 % (36.0-46.0); Hemoglobin 11.2 g/dL (12.2-16.2); Lymphocytes % (auto) 13.7 % (10.0-50.0); Mean Corpuscular Hemoglobin 25.4 pg (28.0-32.0); Mean Corpuscular Hgb Conc. 32.4 g/dL (32.0-36.0); Mean Corpuscular Volume 78.3 fL (80.0-100.0); Monocytes % (auto) 7.3 % (0.0-12.0); Nucleated Red Blood Cells % 0.1 %; Platelet Count (auto) 255 10^3/uL (140-450); White Blood Cell 10.7 10^3/uL (4.4-10.8)
[2018-10-18 06:17] LABS: Red Cell Distribution Width 20.9 % (11.8-14.3)
[2018-10-18 06:34] LABS: Albumin 2.3 g/dL (3.4-5.0); Bilirubin, Total 0.5 mg/dL (0.2-1.0); Calcium 7.8 mg/dL (8.5-10.1)
[2018-10-18] MEDS: PANTOPRAZOLE 40 MG/10 ML VIAL INJ IV SCH ×2 (10:00→22:27)
[2018-10-18] MEDS: TOBRAMYCIN INJ 80 MG in D5W 5% 100 ML IV SCH ×2 (10:15→19:53)
[2018-10-18] MEDS: KETOROLAC TROMETH 15 mg/ml 1ML VL IV PRN (20:02)
[2018-10-19] VITALS: BP 141/57
[2018-10-19 04:00] VITALS: BP 113/21
[2018-10-19] MEDS: KETOROLAC TROMETH 15 mg/ml 1ML VL IV PRN (05:13)
[2018-10-19 08:00] VITALS: BP 141/93
[2018-10-19] MEDS: TOBRAMYCIN INJ 80 MG in D5W 5% 100 ML IV SCH ×2 (08:30→20:00)
[2018-10-19] MEDS: SODIUM CHLORIDE 0.9% 1,000 ML IV SCH ×2 (08:57→19:22)
[2018-10-19] MEDS: PANTOPRAZOLE 40 MG/10 ML VIAL INJ IV SCH ×2 (09:54→22:29)
[2018-10-19 12:00] VITALS: BP 145/60
[2018-10-19 17:09] VITALS: BP 136/74
[2018-10-19] MEDS: Jevity 1.2 Cal/Fiber 1 Liter GT SCH (19:22)
[2018-10-19 22:00] VITALS: BP 128/54
[2018-10-20 05:00] VITALS: BP 143/71
[2018-10-20] MEDS: SODIUM CHLORIDE 0.9% 1,000 ML IV SCH ×2 (05:06→17:21)
[2018-10-20 09:00] VITALS: BP 124/43
[2018-10-20] MEDS: PANTOPRAZOLE 40 MG/10 ML VIAL INJ IV SCH ×2 (09:18→21:06)
[2018-10-20] MEDS: TOBRAMYCIN INJ 80 MG in D5W 5% 100 ML IV SCH ×2 (09:18→20:24)
[2018-10-20] MEDS: Jevity 1.2 Cal/Fiber 1 Liter GT SCH (12:50)
[2018-10-20 13:00] VITALS: BP 121/56
[2018-10-20 17:00] VITALS: BP 135/69
[2018-10-20 22:00] VITALS: BP 144/51
[2018-10-21] VITALS (7 sets, daily range): BP systolic 133–145; BP diastolic 52–95
[2018-10-21] MEDS: SODIUM CHLORIDE 0.9% 1,000 ML IV SCH (07:30)
[2018-10-21] MEDS: Jevity 1.2 Cal/Fiber 1 Liter GT SCH (07:53)
[2018-10-21] MEDS: KETOROLAC TROMETH 15 mg/ml 1ML VL IV PRN (08:14)
[2018-10-21] MEDS: PANTOPRAZOLE 40 MG/10 ML VIAL INJ IV SCH ×2 (10:00→22:00)
[2018-10-21] MEDS: TOBRAMYCIN INJ 80 MG in D5W 5% 100 ML IV SCH ×2 (10:18→20:22)
[2018-10-22 04:52] VITALS: BP 140/61
[2018-10-22] MEDS: SODIUM CHLORIDE 0.9% 1,000 ML IV SCH ×3 (05:09→23:46)
[2018-10-22 06:46] LABS: Basophils # (auto) 0.1 uL; Basophils % (auto) 0.9 % (0.0-2.0); Eosinophils # (auto) 0.4 uL; Lymphocytes # (auto) 1.1 uL; Monocytes # (auto) 0.5 uL
[2018-10-22 06:49] LABS: Eosinophils % (auto) 4.2 % (0.0-7.0); Hematocrit 34.2 % (36.0-46.0); Hemoglobin 11.1 g/dL (12.2-16.2); Lymphocytes % (auto) 12.2 % (10.0-50.0); Mean Corpuscular Hemoglobin 25.4 pg (28.0-32.0); Mean Corpuscular Hgb Conc. 32.4 g/dL (32.0-36.0); Mean Corpuscular Volume 78.2 fL (80.0-100.0); Monocytes % (auto) 5.4 % (0.0-12.0); Neutrophils # (auto) 6.9 uL; Neutrophils % (auto) 77.3 % (37.0-80.0); Platelet Count (auto) 261 10^3/uL (140-450); Red Blood Cells 4.37 10^6/uL (4.0-5.20)
[2018-10-22 07:00] LABS: BUN/Creatinine Ratio 28.6; Calcium 8.4 mg/dL (8.5-10.1)
[2018-10-22] MEDS: TOBRAMYCIN INJ 80 MG in D5W 5% 100 ML IV SCH ×2 (07:59→20:06)
[2018-10-22 08:00] VITALS: BP 160/69
[2018-10-22] MEDS: PANTOPRAZOLE 40 MG/10 ML VIAL INJ IV SCH ×2 (09:17→22:00)
[2018-10-22] MEDS ORDERED: POTASSIUM EFFERVESENT TAB 25 MEQ GT ONE ×2 (12:45→14:00)
[2018-10-22 14:13] VITALS: BP 100/61
[2018-10-22 17:19] VITALS: BP 138/68
[2018-10-22 22:00] VITALS: BP 153/65
[2018-10-23 05:50] VITALS: BP 154/47
[2018-10-23 07:01] LABS: Basophils # (auto) 0.1 uL; Eosinophils # (auto) 0.4 uL; Lymphocytes # (auto) 1.1 uL; Monocytes # (auto) 0.6 uL; Neutrophils % (auto) 77.9 % (37.0-80.0)
[2018-10-23 07:02] LABS: Basophils % (auto) 0.8 % (0.0-2.0); Eosinophils % (auto) 4.1 % (0.0-7.0); Hematocrit 36.1 % (36.0-46.0); Hemoglobin 11.2 g/dL (12.2-16.2); Lymphocytes % (auto) 11.3 % (10.0-50.0); Mean Corpuscular Hemoglobin 24.7 pg (28.0-32.0); Mean Corpuscular Hgb Conc. 30.9 g/dL (32.0-36.0); Mean Corpuscular Volume 79.7 fL (80.0-100.0); Monocytes % (auto) 5.9 % (0.0-12.0); Neutrophils # (auto) 7.5 uL; Platelet Count (auto) 246 10^3/uL (140-450); Red Blood Cells 4.53 10^6/uL (4.0-5.20); White Blood Cell 9.6 10^3/uL (4.4-10.8)
[2018-10-23 07:20] LABS: Potassium 4.2 mmol/L (3.5-5.1)
[2018-10-23 07:24] LABS: BUN/Creatinine Ratio 44.1; Calcium 8.7 mg/dL (8.5-10.1)
[2018-10-23 07:49] LABS: Red Cell Distribution Width 22.4 % (11.8-14.3)
[2018-10-23 09:00] VITALS: BP 140/57
[2018-10-23] MEDS: PANTOPRAZOLE 40 MG/10 ML VIAL INJ IV SCH ×2 (09:41→19:57)
[2018-10-23] MEDS: TOBRAMYCIN INJ 80 MG in D5W 5% 100 ML IV SCH (09:41)
[2018-10-23 13:00] VITALS: BP 137/45
[2018-10-23] MEDS: SODIUM CHLORIDE 0.9% 1,000 ML IV SCH (13:06)
[2018-10-23 16:07] VITALS: BP 139/62
[2018-10-23 17:00] VITALS: BP 139/62
[2018-10-23] MEDS: TOBRAMYCIN IV SCH (19:57)
[2018-10-23] MEDS: D5W 5% IV SCH (19:57)
[2018-10-23 21:00] VITALS: BP 137/53
[2018-10-24] VITALS (7 sets, daily range): BP systolic 105–162; BP diastolic 46–66
[2018-10-24] MEDS: SODIUM CHLORIDE 0.9% 1,000 ML IV SCH ×2 (02:26→17:47)
[2018-10-24] MEDS: D5W 5% IV SCH ×2 (08:00→20:05)
[2018-10-24] MEDS: TOBRAMYCIN IV SCH ×2 (08:00→20:05)
[2018-10-24] MEDS: PANTOPRAZOLE 40 MG/10 ML VIAL INJ IV SCH ×2 (13:03→22:18)
[2018-10-25 04:40] VITALS: BP 111/47
[2018-10-25] MEDS: SODIUM CHLORIDE 0.9% 1,000 ML IV SCH ×2 (05:06→18:34)
[2018-10-25 06:30] LABS: Basophils # (auto) 0.1 uL; Eosinophils # (auto) 0.3 uL; Hematocrit 33.6 % (36.0-46.0); Hemoglobin 10.5 g/dL (12.2-16.2); Lymphocytes # (auto) 1.1 uL; Lymphocytes % (auto) 10.8 % (10.0-50.0); Mean Corpuscular Hemoglobin 24.9 pg (28.0-32.0); Monocytes # (auto) 0.7 uL; Red Blood Cells 4.21 10^6/uL (4.0-5.20); White Blood Cell 9.9 10^3/uL (4.4-10.8)
[2018-10-25 06:32] LABS: Mean Corpuscular Hgb Conc. 31.2 g/dL (32.0-36.0); Mean Corpuscular Volume 79.9 fL (80.0-100.0); Monocytes % (auto) 6.7 % (0.0-12.0); Neutrophils # (auto) 7.7 uL; Neutrophils % (auto) 78.5 % (37.0-80.0); Platelet Count (auto) 207 10^3/uL (140-450)
[2018-10-25 06:42] LABS: Red Cell Distribution Width 21.7 % (11.8-14.3)
[2018-10-25 07:35] LABS: BUN/Creatinine Ratio 41.3; Calcium 8.3 mg/dL (8.5-10.1); Potassium 4.3 mmol/L (3.5-5.1)
[2018-10-25] MEDS: TOBRAMYCIN IV SCH ×2 (08:13→20:20)
[2018-10-25] MEDS: D5W 5% IV SCH ×2 (08:13→20:20)
[2018-10-25 09:00] VITALS: BP 116/47
[2018-10-25] MEDS: PANTOPRAZOLE 40 MG/10 ML VIAL INJ IV SCH ×2 (10:17→21:45)
[2018-10-25] MEDS: Jevity 1.2 Cal/Fiber 1 Liter GT SCH (10:24)
[2018-10-25 13:00] VITALS: BP 121/50
[2018-10-25 16:55] VITALS: BP 113/61
[2018-10-25 22:00] VITALS: BP 125/46
[2018-10-26 05:51] VITALS: BP 118/30
[2018-10-26] MEDS: SODIUM CHLORIDE 0.9% 1,000 ML IV SCH (07:46)
[2018-10-26] MEDS: D5W 5% IV SCH (08:00)
[2018-10-26] MEDS: TOBRAMYCIN IV SCH (08:00)
[2018-10-26 09:00] VITALS: BP 139/43
[2018-10-26] MEDS: PANTOPRAZOLE 40 MG/10 ML VIAL INJ IV SCH (10:00)
[2018-10-26] MEDS: Jevity 1.2 Cal/Fiber 1 Liter GT SCH (11:06)
[2018-10-26 13:00] VITALS: BP 142/42
== END 2018-10-26 14:07 | DRG 870 ==
LOC: EDBD 23:30 → EDUNIT# 23:30 → ER 23:34 → TELE 23:35 → DOU IN ICU 10-15 23:33 → TELE-CENTR 10-19 15:30
PROVIDERS: ADMIT Nurse Practitioner; ATTEND Internal Medicine Cardiovascular Disease
PROC: 5A1955Z Respiratory Ventilation, Greater than 96 Consecutive Hours (ICD-10-PCS; principal; 2018-10-14)
PROC: 30233N1 Transfusion of Nonautologous Red Blood Cells into Peripheral Vein, Percutaneous Approach (ICD-10-PCS; 2018-10-16)
DX: A41.9 Sepsis, unspecified organism (principal); G93.41 Metabolic encephalopathy; J18.9 Pneumonia, unspecified organism; N39.0 Urinary tract infection, site not specified; I48.92 Unspecified atrial flutter; J96.10 Chronic respiratory failure, unspecified whether with hypoxia or hypercapnia; Z99.11 Dependence on respirator [ventilator] status; N17.9 Acute kidney failure, unspecified; E87.0 Hyperosmolality and hypernatremia; I50.22 Chronic systolic (congestive) heart failure; K92.1 Melena; E46 Unspecified protein-calorie malnutrition; J44.0 Chronic obstructive pulmonary disease with (acute) lower respiratory infection; E86.9 Volume depletion, unspecified; I11.0 Hypertensive heart disease with heart failure; Z93.0 Tracheostomy status; G35 Multiple sclerosis; E87.5 Hyperkalemia; B96.5 Pseudomonas (aeruginosa) (mallei) (pseudomallei) as the cause of diseases classified elsewhere; Z88.2 Allergy status to sulfonamides; Z88.6 Allergy status to analgesic agent; Z91.040 Latex allergy status; D75.89 Other specified diseases of blood and blood-forming organs; G40.909 Epilepsy, unspecified, not intractable, without status epilepticus; H70.91 Unspecified mastoiditis, right ear; I48.91 Unspecified atrial fibrillation; J32.9 Chronic sinusitis, unspecified; K80.20 Calculus of gallbladder without cholecystitis without obstruction; Z82.49 Family history of ischemic heart disease and other diseases of the circulatory system; Z90.49 Acquired absence of other specified parts of digestive tract; R73.9 Hyperglycemia, unspecified
CPT/HCPCS: 36415; 36600; 51702; 70450; 71045; 80048; 80053; 80200; 81001; 82565; 82805; 82962; 83605; 83880; 84484; 85007; 85025; 85027; 85610; 85730; 86850; 86870; 86900; 86901; 86922; 87040; 87070; 87077; 87081; 87086; 87088; 87186; 87205; 93005; 94002; 94003; 94640; 94761; 96361; 96365; 96367; 96375; A4605; A4618; C9113; G0378; J0696; J1956; J2001; J7060

== ENCOUNTER 2018-12-13 09:22 | Inpatient (IN) | payer MEDICARE, MEDICAID ==
[~2018-12-13] VITALS: Ht 134.6 cm; Wt 91.0 kg
[2018-12-13] MEDS ORDERED: PIPERACILLIN-TAZOB 3.375GM 100 ML IV ONE (10:15)
[2018-12-13] MEDS ORDERED: ACETAMINOPHEN 650 MG RECT SUPP PR ONE (10:15)
[2018-12-13] MEDS ORDERED: VANCOMYCIN 1GM/250ML 250 ML IV ONE (10:15)
[2018-12-13] MEDS ORDERED: FAMOTIDINE (10MG/ML) 2ML VL IV ONE (10:15)
[2018-12-13 11:54] LABS: Eosinophils # (auto) 0.1 uL; Eosinophils % (auto) 0.5 % (0.0-7.0); Neutrophils # (auto) 15.8 uL
[2018-12-13 12:01] LABS: Basophils # (auto) 0.2 uL; Basophils % (auto) 1.4 % (0.0-2.0); Hematocrit 35.7 % (36.0-46.0); Hemoglobin 11.1 g/dL (12.2-16.2); Lymphocytes # (auto) 0.9 uL; Lymphocytes % (auto) 5.2 % (10.0-50.0); Mean Corpuscular Volume 74.1 fL (80.0-100.0); Monocytes # (auto) 0.6 uL; Monocytes % (auto) 3.4 % (0.0-12.0); Neutrophils % (auto) 89.5 % (37.0-80.0); Nucleated Red Blood Cells % 0.1 %; Platelet Count (auto) 342 10^3/uL (140-450); Red Blood Cells 4.82 10^6/uL (4.0-5.20); White Blood Cell 17.7 10^3/uL (4.4-10.8)
[2018-12-13 12:06] LABS: Red Cell Distribution Width 21.1 % (11.8-14.3)
[2018-12-13 12:14] LABS: Albumin 2.8 g/dL (3.4-5.0); Calcium 8.6 mg/dL (8.5-10.1); Potassium 4.2 mmol/L (3.5-5.1)
[2018-12-13 12:20] LABS: Bilirubin, Total 0.3 mg/dL (0.2-1.0); Total Protein 8.9 g/dL (6.4-8.2)
[2018-12-13 13:12] VITALS: BP 142/49
[2018-12-13] MEDS ORDERED: NITROGLYCERIN 0.4 MG SL TAB SL PRN (13:30)
[2018-12-13] MEDS ORDERED: ACETYLCYSTEINE 20%(200MG/ML) SOL 4ML NEB ONE (13:30)
[2018-12-13] MEDS ORDERED: MORPHINE SULF INJ 2 MG/ML SYRINGE 1ML IV PRN (13:30)
[2018-12-13] MEDS ORDERED: VANCOMYCIN PER PHARMACY 0 MG IV SCH (13:30)
[2018-12-13] MEDS: SODIUM CHLORIDE 0.9% 1,000 ML IV SCH (13:45)
[2018-12-13] MEDS ORDERED: MEROPENEM 1GM IVPB 100 ML IV SCH (14:00)
[2018-12-13] MEDS: ALBUTEROL SULF 2.5 MG/0.5ML(0.5%) NEB SOLN NEB SCH ×3 (14:10→22:55)
[2018-12-13] MEDS: IPRATROPIUM BROM 0.5 MG/2.5ML INH SOL NEB SCH ×3 (14:10→22:55)
[2018-12-13] MEDS: TOBRAMYCIN 300 MG/5 ML NEB SOLN NEB SCH ×2 (14:15→22:55)
[2018-12-13] MEDS: FAMOTIDINE (10MG/ML) 2ML VL IV SCH (15:20)
--- NOTE | 2018-12-13 15:27 | NUR ---
WOUND CARE NOTE: SPECIALTY AIR MATTRESS ORDERED AT THIS TIME. PATIENT TO BE PLACED, PENDING DELIVERY BY LUIS CARLOS MCCARTHY
[2018-12-13 18:00] VITALS: BP 107/37
[2018-12-13 20:00] VITALS: BP 92/49
[2018-12-13] MEDS: CeftoloZANE-TAZOB 1g/0.5g in D5W 5% 100 ML IV SCH (20:30)
[2018-12-13 21:11] LABS: Urine Bacteria MANY /hpf (None Seen); Urine Blood 1+ /uL (Negative); Urine Mucus FEW (None Seen); Urine WBC 4064 /hpf (0 - 5); Urine WBC Clumps PRESENT /hpf (None Seen)
[2018-12-13 21:19] LABS: Urine Specific Gravity 1.017 (1.001-1.035)
[2018-12-13 22:00] VITALS: BP 110/52
[2018-12-13] MEDS ORDERED: APIXABAN 2.5 MG TAB GT SCH (22:00)
[2018-12-13] MEDS: ACETYLCYSTEINE 20%(200MG/ML) SOL 4ML NEB SCH (22:55)
[2018-12-13 23:10] VITALS: BP 114/54
--- NOTE | 2018-12-13 23:10 | NUR ---
Admit to [facility] LOCKETT admitted to [facility] via specialty bed on senior environmental scientist, and portable 02. Patient connected to unit monitoring and oxygen, and weighed by bedscale. Patient oriented to Prema Jones, primary RN, unit, room, bed, and unit policies regarding patient care and visiting hours. All questions and concerns addressed, patient mouthed understanding. Pt stable. Alert and no signs of distress. Pt on specialty mattress. Respiratory at bedside and hooked pt up to vent. VS WNL. Will continue to monitor.
[2018-12-14] VITALS (16 sets, daily range): BP systolic 104–134; BP diastolic 33–105
--- NOTE | 2018-12-14 01:25 | NUR ---
Pt remains stable. Resting at this time. Will continue to monitor.
[2018-12-14] MEDS: IPRATROPIUM BROM 0.5 MG/2.5ML INH SOL NEB SCH ×6 (02:15→22:14)
[2018-12-14] MEDS: ALBUTEROL SULF 2.5 MG/0.5ML(0.5%) NEB SOLN NEB SCH ×6 (02:16→22:14)
[2018-12-14] MEDS: SODIUM CHLORIDE 0.9% 1,000 ML IV SCH ×3 (02:45→19:45)
[2018-12-14] MEDS: CeftoloZANE-TAZOB 1g/0.5g in D5W 5% 100 ML IV SCH ×3 (04:48→20:00)
[2018-12-14] MEDS: ACETYLCYSTEINE 20%(200MG/ML) SOL 4ML NEB SCH ×3 (06:42→22:14)
--- NOTE | 2018-12-14 07:00 | NUR ---
Pt stable. No S/S of distress this shift. Optifoam placed to sacrum for blanchable redness. Report given, care endorsed.
--- NOTE | 2018-12-14 07:30 | NUR ---
RECEIVED PATIENT SEMI NAGY IN BED, PATIENT OPEN EYES TO NAME BEING CALLED AND IS ABLE TO FOLLOW SIMPLE COMMANDS, HAS A SIZE 7 PURTEC TRACH TO THE THROAT, WHICH IS CONNECTED TO VENTILATOR WITH SETTING OF AC14, TV500,PEEP8, FIO2 35%, ON A SPECIALTY BED, EXTREMITIES ARE CONTRACTED, EXCEPT THE RT ARM, RFA HAS 22G SALINE LOCK WHICH WAS FLUSHED AND PATENT, GIL GRAVITY, NS AT 100ML/HR INFUSING INTO THE LFA 22G BY THE IV PUMP,
--- NOTE | 2018-12-14 08:00 | NUR ---
PATIENT HITTING ME AND PUSHING ME AWAY WHEN TRYING TO DO THE PHYSICAL ASSESSMENT, USING HER RT HAND, TRYS TO SCRATCH YOU WITH HER NAILS
--- NOTE | 2018-12-14 08:30 | NUR ---
FEEDING STARTED OF JEVITY AT 30ML/HR BY THE FEEDING PUMP, CONNECTED TO THE PEG TUBE IN THE ABD
--- NOTE | 2018-12-14 09:00 | NUR ---
DR WAY INTO SEE THE PATIENT, TRIED TO CALL THE NEXT OF KIN ANCELMO BUT NO ANSWER REGARDING THE BRONCHOSCOPY ON THE PATIENT
[2018-12-14] MEDS: FAMOTIDINE (10MG/ML) 2ML VL IV SCH (09:26)
[2018-12-14] MEDS: VANCOMYCIN 1GM/250ML 250 ML IV SCH (09:26)
--- NOTE | 2018-12-14 09:26 | NUR ---
EXPLAIN MEDICATIONS TO THE PATIENT REGARDING THE DOSAGE, USAGE AND THE SIDE EFFECTS, , EVEN THOUGHT SHE CAN'T TALK SHE CAN MOVE HER ARMS AND POINT AND MOVE HER HEAD YES AND NO
[2018-12-14] MEDS: Jevity 1.2 Cal/Fiber 1 Liter GT SCH (09:27)
[2018-12-14] MEDS: TOBRAMYCIN 300 MG/5 ML NEB SOLN NEB SCH ×2 (10:30→22:26)
--- NOTE | 2018-12-14 10:30 | NUR ---
NO CHNAGE IN THE PATIENT CONDITION, ON THE VENTILATOR AND BEING SUCTIONED WHEN NEEDED AND TURNED EVERY 2 HOURS, SEENBY THE WOUND CARE NURSE SHEMAR AND HAD BM AND PATIENT CLEANED AND Z GUARD APPLIED TO THE SACRUM
--- NOTE | 2018-12-14 11:20 | NUR ---
WOUND CARE NOTE: IN TO SEE PATIENT AT THIS TIME FOR SKIN INTEGRITY MONITORING. PATIENT RECENTLY ADMITTED TO [facility] WITH DIAGNOSIS OF SEPSIS, ACUTE/CHRONIC RESPIRATORY FAILURE.CURRENT AMBER SCORE IS 13. PATIENT IS OXYGENATED BY WAY OF TRACHEOSTOMY. SHE HAS INTACT SKIN NOTED. THERE ARE MULTIPLE LINEAR SCRATCHES TO HER LEFT ANTERIOR THIGH. SKIN IS INTACT, LEFT OPEN TO AIR. SCARS ARE NOTED TO SACRUM. APPLIED OPTIFOAM GENTLE SACRAL DRESSING PREVENTATIVE. PATIENT IS CURRENTLY RESTING ON SPECIALTY AIR MATTRESS PREVENTATIVE. RECOMMEND: FREQUENT TURN SCHEDULE Q 2 HOURS, PRN CONDITION PERMITS, WITH PRESSURE REDISTRIBUTION USING PILLOWS/WEDGES, BID/PRN APPLICATION MOISTURE BARRIER CREAM, OPTIFOAM GENTLE SACRAL DRESSING, SKIN /WOUND CARE PLAN, DIETARY CONSULT, CONTINUED MONITORING BY WOUND CARE TEAM. Addendum: 12/14/18 at 1822 by Erinn Sultana RN Amended: Links added.
--- NOTE | 2018-12-14 11:30 | NUR ---
PATIENT JUST LYING IN BED WATCHING THE TV, WILL LOOK AT YOU WHEN YOU WALK INTO THE ROOM
--- NOTE | 2018-12-14 12:30 | NUR ---
BREATHING TREATMENT, BEING GIVEN
--- NOTE | 2018-12-14 13:45 | NUR ---
LYING IN BED WATCHING THE TV
--- NOTE | 2018-12-14 14:45 | NUR ---
DR RAMIREZ IN TO SEE THE PATIENT AND SPOKE WITH DR WAY ABUT THE BRONCHOSCOPY WHICH HE WANTS TO DO TODAY, OKAY BY DR RAMIREZ, LSO DR RAMIREZ SIGNED FOR THE PATIENT TH HAVE A PICC LINE INSERTED
--- NOTE | 2018-12-14 14:55 | NUR ---
SPOKE WITH THE PATIENTS DAUGHTER (ANCELMO LOCKETT ) WHO GAVE CONSENT FOR THE THE BRONCHOSCOPY TO BE DONE AND THE PICC LINE TO BE INSERTED
--- NOTE | 2018-12-14 15:45 | NUR ---
Midline Placement: Patient educated on need for midline placement. All risks and benefits explained and all questions and concerns addresses prior to procedure. 18g/20cm midline inserted via right vein using Ultrasound. Sterile technique utilized. Blood return obtained from the lumen and flushed easily with NS using proper technique. Midline secured with saline lock; biodisc and occlusive dressing applied. Primary RN notified.
--- NOTE | 2018-12-14 16:00 | NUR ---
NOTIFIED BY THE HOUSE SUP (PEPE GUEVARA) THAT THE PATIENT WILL HAVE A BRONCHOSCOPY AT THE BEDSIDE AT [address]
--- NOTE | 2018-12-14 16:15 | NUR ---
PATIENT HAVING A MIDLINE PLACED
[2018-12-14] MEDS ORDERED: LIDOCAINE 2%HCL (LOCAL ANESTH.) INJ 20ML MDV ONE (17:00)
[2018-12-14] MEDS ORDERED: NALOXONE HCL 0.4 MG/ML VIAL ONE (17:01)
[2018-12-14] MEDS ORDERED: HYDROmorphone HCL 2 MG/ML VL ONE (17:02)
[2018-12-14] MEDS ORDERED: FLUMAZENIL 0.1 MG/ML INJ 10ML MDV IV ONE (17:02)
[2018-12-14] MEDS ORDERED: EPINEPHrine HCL 1 MG/1 ML AMP ONE (17:02)
[2018-12-14] MEDS ORDERED: LIDOCAINE HCL 2% TOP JELLY 5ML TOP ONE ×2 (17:02→17:53)
[2018-12-14] MEDS ORDERED: fentaNYL CITRATE 100 MCG/2 ML VL ONE (17:03)
[2018-12-14] MEDS ORDERED: SODIUM CHLORIDE LOCK 30 ML ONE (17:03)
--- NOTE | 2018-12-14 17:11 | NUR ---
WAITING FOR DR WAY TO COME AND THE OR TEAM
[2018-12-14] MEDS: MIDAZOLAM HCL 5 MG/ML-1ML VIAL ONE ×2 (17:33→17:47)
--- NOTE | 2018-12-14 17:35 | NUR ---
DR WAY HERE TO DO THE BRONCHOSCOPY
--- NOTE | 2018-12-14 18:10 | NUR ---
PER DR WAY HE WAS UNABLE TO DO THE BRONCHOSCOPY DUE TO THE SIZE OF THE TRACH AND NOT HAVING A PEDIATRIC SCOPE, PATIENT DID TOLERATE HIM TRYING, CALLED THE DAUGHTER ANCELMO AND MADE HER AWARE
--- NOTE | 2018-12-14 18:30 | NUR ---
VS STABLE AND RT WORKING WITH THE PATIENT DOING BREATHING TREATMENT, PEG TUBE FEEDING RESTARTED WITH JEVITY, PATIENT REMAINS ON THE VENTILATOR WITH THE SAME SETTING , NS INFUSING INTO THE LFA AT 100ML/HR BY THE IV PUMP, MIDLINE TO THE CHASE 18G DRY AND INTACT, AND 22G TO THE RFA INTACT AND PATENT, GIL TO GRAVITY, PATIETN IS SLEEPING, WILL CONTINUE TO MONITOR AND GIVE REPORT TO THE NEXT SHIFT
[2018-12-15] VITALS (16 sets, daily range): BP systolic 111–138; BP diastolic 37–88
[2018-12-15] MEDS: IPRATROPIUM BROM 0.5 MG/2.5ML INH SOL NEB SCH ×6 (02:14→22:29)
[2018-12-15] MEDS: ALBUTEROL SULF 2.5 MG/0.5ML(0.5%) NEB SOLN NEB SCH ×6 (02:14→22:29)
[2018-12-15] MEDS: SODIUM CHLORIDE 0.9% 1,000 ML IV SCH ×3 (05:14→18:25)
[2018-12-15] MEDS: CeftoloZANE-TAZOB 1g/0.5g in D5W 5% 100 ML IV SCH ×3 (05:20→20:16)
[2018-12-15] MEDS: ACETYLCYSTEINE 20%(200MG/ML) SOL 4ML NEB SCH ×3 (06:45→22:29)
--- NOTE | 2018-12-15 07:30 | NUR ---
CONTINUED ASSESSMENT FOR MORNING PEG TUBE TO THE ABD WITH JEVITY AT 30ML/HR INFUSING BY THE FEEDING PUMP
--- NOTE | 2018-12-15 07:30 | NUR ---
RECEIVED PATIENT SITTING UP IN THE BED, OPEN EYES WHEN I CALLED HER NAME, A/O TIMES 1 WAS ABLE TO MOUTH HER NAME WHEN ASK BUT WOULD NOT SQUEEZE MY HAND THIS MORNING LIKE YESTERDAY, PATIENT HAS A SIZE 7 PURTEC TRACH TO THE THROAT WHICH IS CONNECTED TO THE VENTILATOR WITH SETTING OF AC14,TV500,PEEP 8, FIO2 30% SALINE LOCK TO THE LFA 22G AND THE RFA 22G BOTH FLUSHED AND PATENT, MID LINE TO THE CHASE WITH NS AT 100ML/HR INFUSING BY THE IV PUMP, GIL TO GRAVITY, ON A SPECIALTY MATTRESS, NO COMPLAINTS OF PAIN
--- NOTE | 2018-12-15 07:57 | NUR ---
Pt has remained stable this shift. No S/S of distress. Report given, care endorsed.
--- NOTE | 2018-12-15 08:30 | NUR ---
LORETA IS ON PEG TUBE FEEDING AT 30ML/HR SPOKE WITH THE KNIT TUBING DYER AND INCREASED TO 40ML/HR GOAL OF 60ML/HR Addendum: 12/15/18 at 1655 by Cee Arzola RN DISREGARD THE SPELLING OF PATIENT
[2018-12-15] MEDS: FAMOTIDINE (10MG/ML) 2ML VL IV SCH (09:28)
--- NOTE | 2018-12-15 09:28 | NUR ---
EXPLAIN MEDICATIONS TO THE PATIENT REGARDING THE DOSAGE, USAGE, AND THE SIDE EFFECTS, EVEN THOUGH THE PATIENT MAY NOT UNDERSTAND COMPLETELY, SHE DID MOUTH THE WORD OKAY
--- NOTE | 2018-12-15 10:15 | NUR ---
NOTIFIED BY LAB THAT THE VANCO TROUGH WAS 9.9 AND , TALK WITH THE PHARMACIST AND MADE AWARE THAT VANCO WAS BEING GIVEN TODAY
[2018-12-15] MEDS: VANCOMYCIN 1GM/250ML 250 ML IV SCH (10:19)
--- NOTE | 2018-12-15 10:37 | NUR ---
PATIENT HAD 5 BEATS OF V-TACH, LAB TEST ORDERED TO CHECK THE MAG LEVEL AND THE POTASSIUM, NO SYMPTOMS
[2018-12-15 10:55] LABS: Basophils # (auto) 0.1 uL; Mean Corpuscular Volume 73.4 fL (80.0-100.0); Monocytes # (auto) 0.5 uL; Neutrophils # (auto) 5.7 uL
[2018-12-15 10:59] LABS: Basophils % (auto) 1.2 % (0.0-2.0); Eosinophils # (auto) 0.3 uL; Eosinophils % (auto) 3.5 % (0.0-7.0); Lymphocytes # (auto) 0.7 uL; Lymphocytes % (auto) 9.5 % (10.0-50.0); Mean Corpuscular Hemoglobin 23.7 pg (28.0-32.0); Mean Corpuscular Hgb Conc. 32.3 g/dL (32.0-36.0); Monocytes % (auto) 7.4 % (0.0-12.0); Neutrophils % (auto) 78.4 % (37.0-80.0); Platelet Count (auto) 248 10^3/uL (140-450); Red Blood Cells 3.81 10^6/uL (4.0-5.20); White Blood Cell 7.3 10^3/uL (4.4-10.8)
[2018-12-15] MEDS: TOBRAMYCIN 300 MG/5 ML NEB SOLN NEB SCH ×2 (11:08→22:29)
[2018-12-15 11:12] LABS: Red Cell Distribution Width 20.4 % (11.8-14.3)
--- NOTE | 2018-12-15 11:30 | NUR ---
SITTING UP IN THE BED LOOKING A THE TV
[2018-12-15 11:35] LABS: Potassium 3.3 mmol/L (3.5-5.1)
[2018-12-15 11:40] LABS: BUN/Creatinine Ratio 21.4; Calcium 8.1 mg/dL (8.5-10.1); Magnesium 1.9 mg/dL (1.6-2.6)
--- NOTE | 2018-12-15 11:59 | NUR ---
NUTRITION CONSULT/ASSESSMENT NOTES Please refer to link notes of nutrition screen form filed under the intervention section of the plan of care for further details. Est. Needs: 1450 kcal to 1850 kcal (18-23 kcal/kgBW), 64 gms to 81 gms pro (0.8-1.0 gms/kgBW). Will continue to monitor pertinent labs and reassess nutrient need prn Thank you for this consult. Addendum: 12/15/18 at [address] Amended: Links added.
--- NOTE | 2018-12-15 12:35 | NUR ---
NOTIFIED DR RAMIREZ OF THE V-TACH AND THE LAB RESULTS , K LEVEL 3.3 AND MAG LEVEL 1.9 STATED TO GIVE POTASSIUM 50MEQ THROUGH THE PEG TUBE AND GIVE FREE WATER 100ML Q4 HOUR FOR SODIUM OF 145 NO OTHER ORDERS
--- NOTE | 2018-12-15 12:35 | NUR ---
MADE DR RAMIREZ AWARE THAT THE STOOL WAS POSITIVE FOR OCCULT BLOOD HGB WAS 9.0 AND HCT WAS 28.0
[2018-12-15] MEDS ORDERED: POTASSIUM EFFERVESENT TAB 25 MEQ GT ONE (12:45)
--- NOTE | 2018-12-15 13:30 | NUR ---
PATIENT SITTING UP IN THE BED, NO CHANGE IN CONDITION
[2018-12-15] MEDS: FREE WATER GT SCH ×3 (13:44→22:20)
--- NOTE | 2018-12-15 14:00 | NUR ---
DR PRUITT IN TO SEE THE PATIENT AND SPOKE WITH RT AND MYSELF AND STATED TO ORDER AN ABG AND CHEST X-RAY FOR TOMORROW
--- NOTE | 2018-12-15 14:30 | NUR ---
NOTIFIED BY LAB THAT THE PATIENT IS POSITIVE FOR MRSA IN THE NARES
--- NOTE | 2018-12-15 15:10 | NUR ---
BREATHING TREATMENT BEING GIVEN
--- NOTE | 2018-12-15 15:30 | NUR ---
LYING IN BED WITH EYES CLOSED, APPEARS TO BE SLEEPING
--- NOTE | 2018-12-15 16:30 | NUR ---
TRACH CARE BEING DONE BY RT
--- NOTE | 2018-12-15 17:30 | NUR ---
NO CHANGE SITTING UP IN BED WITH EYES CLOSED
--- NOTE | 2018-12-15 18:00 | NUR ---
DR RAMIREZ IN TO SEE THE PATIENT AND STATED THEY CAN CHANGE THE PURTEC SIZE 7, TO A SHILEY IF NEEDED, STATES THAT ITS WHAT HE USES AT THIS FACILITY
--- NOTE | 2018-12-15 18:30 | NUR ---
PATIENT SITTING UP IN THE BED, AFTER BREATHING TREATMENT WAS GIVEN, O2 BY THE VENTILATOR, PATIENT HAS A TRACH PURTEC SIZE 7, NO CHANGE IN THE SETTING SINCE AM ASSESSMENT, PEG TUBE WITH JEVITY AT 40ML/HR INFUSING BY THE FEEDING PUMP, SALINE LOCK TO THE LFA 22G AND RFA 22G , NS INFUSING INTO THE CHASE MIDLINE AT 100ML./HR INFUSING BY THE IV PUMP, GIL TO GRAVITY, ON SPECIALTY BED, WILL CONTINUE TO MONITOR AND GIVE REPORT TO THE NEXT SHIFT
--- NOTE | 2018-12-15 19:15 | NUR ---
OPENING SHIFT RECEIVED REPORT FROM DAY SHIFT RN. ASSUMED CARE OF PATIENT. PATIENT IN BED RESTING WITH NO SIGNS OR SYMPTOMS OF SOB, PAIN OR DISTRESS. CURRENTLY ON AC 14/ TV500 / PEEP 8 / FI02 30% VIA TRACH, 02 SAT - 98%. LEFT FOREARM IV, RIGHT FOREARM IV, AND RIGHT UPPER ARM MIDLINE - CLEAN/DRY/INTACT. REPOSITIONED FOR COMFORT. GIL HUNG TO GRAVITY ON BED RAIL. BED IN LOWEST POSITION, PADDED SIDE RAILS UP X2, CALL LIGHT WITHIN REACH. WILL CONTINUE TO MONITOR. Addendum: 12/16/18 at 0707 by YVES GARCIA RN RN *PEG TUBE - NO RESIDUAL, VERIFIED VIA AUSCULTATION.
--- NOTE | 2018-12-15 23:35 | NUR ---
PM CARE PERFORMED PM CARE WITH CHG WIPES AND WASH CLOTHS TO THE FACE. PARTIAL LINEN AND GOWN CHANGED. SKIN REASSESSED AT THIS TIME. REPOSITIONED FOR COMFORT. BED IN LOWEST POSITION, PADDED SIDE RAILS UP X2, CALL LIGHT WITHIN REACH. WILL CONTINUE TO MONITOR.
[2018-12-16] VITALS (19 sets, daily range): BP systolic 121–152; BP diastolic 43–60
[2018-12-16] MEDS: IPRATROPIUM BROM 0.5 MG/2.5ML INH SOL NEB SCH ×6 (02:13→22:27)
[2018-12-16] MEDS: ALBUTEROL SULF 2.5 MG/0.5ML(0.5%) NEB SOLN NEB SCH ×6 (02:13→22:27)
[2018-12-16] MEDS: CeftoloZANE-TAZOB 1g/0.5g in D5W 5% 100 ML IV SCH ×3 (04:28→21:02)
[2018-12-16] MEDS: FREE WATER GT SCH ×6 (04:28→21:03)
[2018-12-16] MEDS: SODIUM CHLORIDE 0.9% 1,000 ML IV SCH ×3 (05:41→21:03)
[2018-12-16] MEDS: VANCOMYCIN 1,500 MG in D5W 5% 250 ML IV SCH (05:42)
[2018-12-16] MEDS: ACETYLCYSTEINE 20%(200MG/ML) SOL 4ML NEB SCH ×3 (06:08→22:27)
[2018-12-16] MEDS: TOBRAMYCIN 300 MG/5 ML NEB SOLN NEB SCH ×2 (06:08→18:45)
[2018-12-16 06:17] LABS: Basophils # (auto) 0.1 uL; Eosinophils # (auto) 0.3 uL; Hemoglobin 8.8 g/dL (12.2-16.2); White Blood Cell 6.7 10^3/uL (4.4-10.8)
[2018-12-16 06:19] LABS: Basophils % (auto) 1.1 % (0.0-2.0); Eosinophils % (auto) 4.3 % (0.0-7.0); Hematocrit 26.8 % (36.0-46.0); Lymphocytes # (auto) 0.8 uL; Lymphocytes % (auto) 12.6 % (10.0-50.0); Mean Corpuscular Hemoglobin 23.6 pg (28.0-32.0); Mean Corpuscular Hgb Conc. 32.9 g/dL (32.0-36.0); Mean Corpuscular Volume 71.7 fL (80.0-100.0); Monocytes # (auto) 0.4 uL; Monocytes % (auto) 6.1 % (0.0-12.0); Neutrophils # (auto) 5.1 uL; Neutrophils % (auto) 75.9 % (37.0-80.0); Platelet Count (auto) 254 10^3/uL (140-450); Red Blood Cells 3.74 10^6/uL (4.0-5.20)
[2018-12-16 06:32] LABS: Red Cell Distribution Width 20.4 % (11.8-14.3)
[2018-12-16 06:38] LABS: Potassium 3.5 mmol/L (3.5-5.1)
[2018-12-16 06:46] LABS: Albumin 2.1 g/dL (3.4-5.0); Bilirubin, Total 0.2 mg/dL (0.2-1.0); Calcium 8.4 mg/dL (8.5-10.1); Total Protein 7.2 g/dL (6.4-8.2)
--- NOTE | 2018-12-16 07:07 | NUR ---
END OF SHIFT PATIENT IN BED RESTING WITH NO SIGNS OR SYMPTOMS OF SOB, PAIN OR DISTRESS. CURRENTLY ON AC 14/ TV500 / PEEP 8 / FI02 30% VIA TRACH, 02 SAT - 98%. LEFT FOREARM IV, RIGHT FOREARM IV, AND RIGHT UPPER ARM MIDLINE - CLEAN/DRY/INTACT. PEG TUBE - PATENT AND INTACT. REPOSITIONED FOR COMFORT. GIL HUNG TO GRAVITY ON BED RAIL. BED IN LOWEST POSITION, PADDED SIDE RAILS UP X2, CALL LIGHT WITHIN REACH. WILL CONTINUE TO MONITOR.
--- NOTE | 2018-12-16 08:10 | NUR ---
Opening Shift Note Assumed care of patient, awake and alert, communication by reading her lips, patient follow direction, no agitation noted at this time, assessment done. No S/S of distress/SOB or pain. On ventilator: FiO2 0.3, TV 500 AV 14 peep 8, STV around 500-580, RR 16-18/min, O2 saturation 96-98%. Instructed on POC and to call for assist PRN, will continue to monitor for changes Q1hr and PRN.
[2018-12-16] MEDS: FAMOTIDINE (10MG/ML) 2ML VL IV SCH (09:18)
--- NOTE | 2018-12-16 09:30 | NUR ---
Position changed with elevated HOB, aspiration precaution, mouth care provided. Free water given , PEG no content left, patent when flushing, increased Jevity to 50 ml/hr, will continue to monitor and care.
--- NOTE | 2018-12-16 12:00 | NUR ---
Tolerated feeding after increased to 50ml/hr, no content left or N/V noted.
--- NOTE | 2018-12-16 16:00 | NUR ---
Position changed, perineal care provided. Continue ventilator, O2 saturation 95-98%, able to take a short nap.
--- NOTE | 2018-12-16 18:40 | NUR ---
Dr. Mullen at the bedside, seen and examined patient at this time. No plan for changing TT tube or bronchoscopy at this time, patient has less sputum and CXR no changed, will continue to monitor and care. RT at the bedside, received order for changing Ventilator setting back to her setting that use at SNF. Will continue to monitor and care keep O2 saturation > 92%.
--- NOTE | 2018-12-16 20:00 | NUR ---
SHIFT OPENING NOTE RECEIVED PATIENT AWAKE AND ORIENTED X3. ON TRACH WITH VENTILATOR. POX 97%. PATIENT IS RECEIVING PEG FEEDINGS JEVITY AT 50 ML/H. TOLERATING WELL. GIL CATH IN PLACE DRAINING YELLOW URINE TO GRAVITY. CHASE MIDLINE INFUSING NS AT 100ML/H. PHYSICAL ASSESSMENT COMPLETED, SEE INTERVENTIONS. INSTRUCTED ON POC AND TO CALL FOR ASSIST NEEDED. WILL CLOSELY MONITOR.
[2018-12-17] VITALS (16 sets, daily range): BP systolic 117–166; BP diastolic 42–79
[2018-12-17] MEDS: ALBUTEROL SULF 2.5 MG/0.5ML(0.5%) NEB SOLN NEB SCH ×6 (02:18→21:52)
[2018-12-17] MEDS: IPRATROPIUM BROM 0.5 MG/2.5ML INH SOL NEB SCH ×6 (02:19→21:52)
[2018-12-17] MEDS: FREE WATER GT SCH ×6 (03:04→20:46)
[2018-12-17] MEDS: CeftoloZANE-TAZOB 1g/0.5g in D5W 5% 100 ML IV SCH ×3 (04:21→20:45)
--- NOTE | 2018-12-17 05:30 | NUR ---
MORNING HYGIENE CARE FULL BED BATH PERFORMED WITH CHG WIPES AND WARM SOAPY WASH CLOTHES. GOWN CHANGED. PARTIAL LINEN CHANGED. ORAL CARE DONE. PATIENT REPOSITIONED FOR COMFORT. TOLERATED IT WELL.
[2018-12-17] MEDS: VANCOMYCIN 1,500 MG in D5W 5% 250 ML IV SCH (05:40)
[2018-12-17] MEDS: TOBRAMYCIN 300 MG/5 ML NEB SOLN NEB SCH ×2 (06:37→21:52)
[2018-12-17] MEDS: ACETYLCYSTEINE 20%(200MG/ML) SOL 4ML NEB SCH ×2 (06:38→15:06)
--- NOTE | 2018-12-17 06:50 | NUR ---
END OF SHIFT PATIENT IS QUIETLY LAYING IN BED WITH EYES OPEN. REMAINS ON TRACH WITH VENTILATOR. NO SOB, OR DISTRESS NOTED. VS STABLE. WILL GIVE REPORT AND ENDORSE CARE TO THE DAY SHIFT RN.
--- NOTE | 2018-12-17 07:35 | NUR ---
Opening Shift Note Assumed care of patient, awake and alert, smiling back, communication by reading her Lips, cooperate at this time. No S/S of distress/SOB or pain noted, continue ventilator setting as order. Instructed on POC, will continue to monitor for changes Q1hr and PRN. Turn position at this time as well.
[2018-12-17] MEDS: SODIUM CHLORIDE 0.9% 1,000 ML IV SCH ×2 (08:53→17:00)
--- NOTE | 2018-12-17 09:01 | NUR ---
Patient tolerated tube feeding well, no content left, increased tube feeding to 60 ml/hr as a gaol. Will continue to monitor and care.
[2018-12-17] MEDS: FAMOTIDINE (10MG/ML) 2ML VL IV SCH (09:16)
--- NOTE | 2018-12-17 10:13 | NUR ---
assessment Patient is 78 year old female who is vent dependent and aphasic. Patient is total care at [facility]. Patient has a peg tube and a trach. Patient has a wheelchair, home 02, hospital bed and a jessica lift. Patient to return to [facility] on discharge. [facility] to transport patient home. [facility] [phone] or [phone]. Patient has an advance directive and her POA is her brother Hakeem . Per Hakeem if he is not available then contact his Misty at [phone]. Hakeem has also been informed of patients hospitalization. Hakeem agrees to discharge plan back to [facility]. Addendum: 12/17/18 at 1015 by Rosemary DURANT Amended: Links added.
--- NOTE | 2018-12-17 11:52 | NUR ---
Nutrition Follow-up Notes Wt.: 83.6 kg today. Pt's in isolation room, on vent via trach, asleep, mittens in place, no immediate family member at bedside during rounds earlier. Pt's no signs of distress noted this morning, currently NPO, with EN support of Jevity 1.2 Suman @ 60 ml/hr providing 1728 kcal, 80 gms pro and 1162 ml free water, tolerates feeding well no residuals noted this morning, per nursing. Pt with adequate EN support d/t high initiation rate delivery of concentrated formula aeb current EN infusion meets 93% to 119% of est caloric needs and 99% to 125% of est protein needs. Est. Needs: 1450 kcal to 1850 kcal (18-23 kcal/kgBW), 64 gms to 81 gms pro (0.8-1.0 gms/kgBW). Will continue to monitor pertinent labs and reassess nutrient need prn Labs: Gluc 125 H, Cl 113 H, Ca 8.4 L, Cr 0.354 L; Alb 2.1 L Skin: Chun scale 12, high risk, left thigh linear scratches per machine engraver. GI: Pt had 1 BM this morning per machine engraver. PES: Increased nutrient needs r/t acute/chronic medical condition aeb mod hypoalbuminemia, on vent via trach, NPO with EN support via GT Altered nutrition related lab values r/t current/chronic medical condition aeb hyperglycemia, hypokalemia, hyperchloremia, elev.Trop I, and mod hypoalbuminemia Will continue to monitor NPO status, EN tolerance, skin status, pertinent labs and weight trend. F/u in 2 to 3 days. Rec.: 1.) Continue EN support of Jevity 1.2 Ca to 60 ml/hr via PEG tube goal rate as tolerated. 2.) If Albumin level continues trending down, consider Prostat 1 pkt BID. 3.) Consider daily MVI with minerals and Asc acid 500 mgs BID prn. 4.) Refer pt to RD for further nutrition education and weight monitoring upon discharge. 5.) Continue current plan of care.
--- NOTE | 2018-12-17 12:34 | NUR ---
Prop Making Supervisor phoned re: transfer back to facility based on 's note - states wants patient to have trach tube changed out and for patient to have bronchoscopy.
--- NOTE | 2018-12-17 12:48 | NUR ---
notified of 's request - states will come in this afternoon and replace tracheostomy tube - program writer notified Guera BUCHANAN MD also states he will evaluate patient for need for peds bronch. Off Track Betting Manager spoke to Al[place] - [place]eds scope and that this bronch would have to be pre-scheduled and peds scope obtained from another source for procedure.
--- NOTE | 2018-12-17 13:00 | NUR ---
Hold tube feeding at this time for possible procedure today.
--- NOTE | 2018-12-17 13:10 | NUR ---
notified that going to change out patient's trach and may possibly do bronch depending on if patient needs peds bronch.
--- NOTE | 2018-12-17 13:40 | NUR ---
Laurita from [place] states bronch can be done at bedside today preferably before 1530 - notified.
--- NOTE | 2018-12-17 13:45 | NUR ---
Called and left the message to Misty regarding consents for changing TT and Bronchoscopy.
[2018-12-17] MEDS ORDERED: MIDAZOLAM HCL 1MG/1ML-2 ML VIAL ONE (13:52)
--- NOTE | 2018-12-17 14:00 | NUR ---
Dr. Mullen at the beside and RT also at the bedside. Dr. Dawson at the bedside.
--- NOTE | 2018-12-17 14:05 | NUR ---
Called and left the message to Misty at this time.
[2018-12-17] MEDS ORDERED: NALOXONE HCL 0.4 MG/ML VIAL ONE (14:11)
[2018-12-17] MEDS ORDERED: FLUMAZENIL 0.1 MG/ML INJ 10ML MDV IV ONE (14:11)
[2018-12-17] MEDS ORDERED: SODIUM CHLORIDE LOCK 30 ML ONE (14:12)
[2018-12-17] MEDS ORDERED: fentaNYL CITRATE 100 MCG/2 ML VL ONE (14:12)
[2018-12-17] MEDS ORDERED: EPINEPHrine HCL 1 MG/1 ML AMP ONE (14:12)
[2018-12-17] MEDS ORDERED: GLYCOPYRROLATE 0.2 MG/ML 1ML VIAL ONE (14:13)
[2018-12-17] MEDS ORDERED: LIDOCAINE HCL 2% TOP JELLY 5ML TOP ONE (14:13)
[2018-12-17] MEDS ORDERED: diphenhdrAMINE HCL 50 MG/1 ML VL ONE (14:13)
[2018-12-17] MEDS ORDERED: MIDAZOLAM HCL 5 MG/ML-1ML VIAL ONE (14:13)
[2018-12-17] MEDS ORDERED: LIDOCAINE 2%HCL (LOCAL ANESTH.) INJ 20ML MDV ONE (14:14)
[2018-12-17] MEDS ORDERED: MIDAZOLAM HCL 1MG/1ML-2 ML VIAL IV ONE ×2 (14:15)
--- NOTE | 2018-12-17 14:46 | NUR ---
Called and left the message to Misty again to [phone].
--- NOTE | 2018-12-17 14:50 | NUR ---
RT AT BEDSIDE DURING TRACHEOSTOMY CHANGED. NO INCIDENT REPORTED.
[2018-12-17 14:52] LABS: INR 1.11 (0.9-1.15); Partial Thromboplastin Time 24.3 sec (23.64-32.05)
--- NOTE | 2018-12-17 14:55 | NUR ---
Misty (sister in law) called back made aware about the plan of care for changing TT and do bronchoscopy, gave content via telephone, signed by 2 RN.
[2018-12-17] MEDS ORDERED: ROCURONIUM 10MG/ML 10ML VIAL IV ONE (15:45)
[2018-12-17] MEDS ORDERED: HALOPERIDOL LACTATE 5 MG/ML INJ VIAL ONE (16:23)
--- NOTE | 2018-12-17 18:00 | NUR ---
Resume tube feeding, flush with free water as order, patent, no content noted. Will continue to monitor and care.
--- NOTE | 2018-12-17 18:27 | NUR ---
RT NOTE RECEIVED PT TRACHED AND ON VENT V19 ON STATED SETTINGS. VENT IS PLUGGED TO RED OUTLET. ALARMS ARE ON AND AUDIBLE AT NURSES STATION. AMBU BAG AT BEDSIDE AND CONNECTED TO O2 SOURCE. 6.0 SHILEY DFEN TRACH SECURED WITH TRACH TIES. DRAIN SPONGE APPEARS CLEAN AND DRY AT THIS TIME. BILATERAL BS ARE CLEAR/DIMINISHED. PT WAS HELD AT THIS TIME DUE TO CLEAR BS AND PT SLEEPING. NO SOB OR DISTRESS NOTED. HHN GIVEN INLINE WITH 2.5 MG ALBUTEROL AND 0.5 MG ATROVENT WITHOUT ADVERSE REACTION NOTED. SPARE TRACH AT BEDSIDE. CONT ORDERED POX 99% Addendum: 12/17/18 at 1834 by Charu Perez RT Amended: Links added.
--- NOTE | 2018-12-17 20:00 | NUR ---
SHIFT OPENING NOTE RECEIVED PATIENT LAYING IN BED SLEEPING. AWOKEN BY TOUCH AND VOICE. ON TRACH WITH VENTILATOR. POX 98%. PATIENT IS RECEIVING PEG FEEDINGS JEVITY AT 60 ML/H. TOLERATING WELL WITH NO RESIDUALS GIL CATH IN PLACE DRAINING YELLOW URINE TO GRAVITY. CHASE MIDLINE INFUSING NS AT 100ML/H. PHYSICAL ASSESSMENT COMPLETED, SEE INTERVENTIONS. INSTRUCTED ON POC AND TO CALL FOR ASSIST NEEDED. WILL CLOSELY MONITOR.
--- NOTE | 2018-12-17 20:11 | NUR ---
RT NOTE ROUTINE VENT CHECK DONE. PT TRACHED AND ON VENT V20 ON STATED SETTINGS. VENT IS PLUGGED TO RED OUTLET. ALARMS ARE ON AND AUDIBLE AT NURSES STATION. AMBU BAG AT BEDSIDE AND CONNECTED TO O2 SOURCE. 6.0 KALIN ASTORGA TRACH SECURED WITH TRACH TIES. DRAIN SPONGE APPEARS CLEAN AND DRY AT THIS TIME. SPARE TRACH AT BEDSIDE. CONT ORDERED POX 98% Addendum: 12/17/18 at 2015 by Charu Perez RT Amended: Links added.
--- NOTE | 2018-12-17 21:52 | NUR ---
RT NOTE ROUTINE VENT CHECK DONE. PT TRACHED AND ON VENT V20 ON STATED SETTINGS. VENT IS PLUGGED TO RED OUTLET. ALARMS ARE ON AND AUDIBLE AT NURSES STATION. AMBU BAG AT BEDSIDE AND CONNECTED TO O2 SOURCE. 6.0 SHILEY DFEN TRACH SECURED WITH TRACH TIES. DRAIN SPONGE APPEARS CLEAN AND DRY AT THIS TIME. SPARE TRACH AT BEDSIDE. HHN GIVEN INLINE WITH 2.5 MG ALBUTEROL, 0.5 MG ATROVENT AND AVA 300MG/5ML WITHOUT INCIDENT. PT SLEPT THROUGH TX. PT WAS SUCTIONED FOR SMALL RETURN.CONT ORDERED POX 98% Addendum: 12/17/18 at 2201 by Charu ePrez RT Amended: Links added.
[2018-12-18] VITALS (19 sets, daily range): BP systolic 136–150; BP diastolic 50–67
--- NOTE | 2018-12-18 00:04 | NUR ---
RT NOTE ROUTINE VENT CHECK DONE. PT TRACHED AND ON VENT V20 ON STATED SETTINGS. VENT IS PLUGGED TO RED OUTLET. ALARMS ARE ON AND AUDIBLE AT NURSES STATION. AMBU BAG AT BEDSIDE AND CONNECTED TO O2 SOURCE. 6.0 ARUNLEY DFEN TRACH SECURED WITH TRACH TIES. DRAIN SPONGE APPEARS CLEAN AND DRY AT THIS TIME. SPARE TRACH AT BEDSIDE. PT APPEARS COMFORTABLE AT THIS TIME. CONT ORDERED POX 99% Addendum: 12/18/18 at 0007 by Charu Perez RT Amended: Links added.
[2018-12-18] MEDS: FREE WATER GT SCH ×6 (01:52→22:00)
[2018-12-18] MEDS: ALBUTEROL SULF 2.5 MG/0.5ML(0.5%) NEB SOLN NEB SCH ×6 (02:39→22:37)
[2018-12-18] MEDS: IPRATROPIUM BROM 0.5 MG/2.5ML INH SOL NEB SCH ×6 (02:39→22:37)
[2018-12-18] MEDS: SODIUM CHLORIDE 0.9% 1,000 ML IV SCH ×3 (04:04→23:45)
[2018-12-18] MEDS: CeftoloZANE-TAZOB 1g/0.5g in D5W 5% 100 ML IV SCH ×3 (04:05→23:00)
--- NOTE | 2018-12-18 04:16 | NUR ---
RT NOTE ROUTINE VENT CHECK DONE. PT TRACHED AND ON VENT V20 ON STATED SETTINGS. VENT IS PLUGGED TO RED OUTLET. ALARMS ARE ON AND AUDIBLE AT NURSES STATION. AMBU BAG AT BEDSIDE AND CONNECTED TO O2 SOURCE. 6.0 SHILEY DFEN TRACH SECURED WITH TRACH TIES. DRAIN SPONGE APPEARS CLEAN AND DRY AT THIS TIME. SPARE TRACH AT BEDSIDE. PT IS SLEEPING AND APPEARS COMFORTABLE. INLINE SUCTION, T-PIECE AND HME CHANGED WITHOUT INCIDENT. CONT ORDERED. POX 97% Addendum: 12/18/18 at 0428 by Charu Perez RT Amended: Links added.
--- NOTE | 2018-12-18 05:15 | NUR ---
MORNING HYGIENE CARE PATIENT NOTED TO HAVE BEEN INCONTINENT OF A LARGE BROWN LIQUID BM. MENDOZA CARE PERFORMED. FULL BED BATH PERFORMED WITH CHG WIPES AND WARM SOAPY WASH CLOTHES. GOWN CHANGED. FULL LINEN CHANGE. PATIENT REPOSITIONED FOR COMFORT. TOLERATED IT WELL.
[2018-12-18 06:20] LABS: BUN/Creatinine Ratio 33.3; Calcium 7.9 mg/dL (8.5-10.1); Potassium 3.7 mmol/L (3.5-5.1)
[2018-12-18] MEDS: VANCOMYCIN 1,500 MG in D5W 5% 250 ML IV SCH (06:46)
--- NOTE | 2018-12-18 07:30 | NUR ---
RECEIVED PATIENT SITTING UP IN THE BED, A/O TIMES 1 OPEN EYES WHEN YOU ENTER THE ROOM, PATIENT HAS A SIZE 6 SHILEY TRACH TO THE THROAT, WHICH IS CONNECTED TO THE VENTILATOR WITH SETTING OF AC12,TV500,PEEP8, FIO2 30%, PEG TUBE TO THE ABD, WITH JEVITY AT 6OML/HR INFUSING BY THE FEEDING PUMP, ON SPECIALTY MATTRESS, GIL TO GRAVITY, NS INFUSING INTO THE CHASE AT 100ML.HR BY THE IV PUMP, SALINE LOCK TO THE RFA 22G FLUSHED AND PATENT, NO SIGNS OF PAIN
--- NOTE | 2018-12-18 07:30 | NUR ---
REPORT GIVEN AND CARE ENDORSED TO PATY GOODSON
--- NOTE | 2018-12-18 08:30 | NUR ---
PATIENT IS ON TUBE FEEDING OF JEVITY AT 60ML/HR INFUSING INTO THE LUQ ABD THROUGH THE PEG TUBE, OTHER OLEA SHE IS NPO Addendum: 12/18/18 at 9346 by Cee Arzola RN FLUSHED AND NO RESIDUALS
[2018-12-18] MEDS: FAMOTIDINE (10MG/ML) 2ML VL IV SCH (09:20)
--- NOTE | 2018-12-18 09:37 | NUR ---
EXPLAIN MEDICATIONS TO THE PATIENT REGARDING THE DOSAGE, USAGE AND THE SIDE EFFECTS, PATIENT TRYING TO PUSH MY HANDS AWAY WHEN I WAS GIVING THE MEDICATION
[2018-12-18] MEDS: TOBRAMYCIN 300 MG/5 ML NEB SOLN NEB SCH ×2 (09:59→22:37)
--- NOTE | 2018-12-18 10:06 | NUR ---
RT IN WORKING WITH THE PATIENT
--- NOTE | 2018-12-18 11:00 | NUR ---
SITTING UP IN BED, NO CHANGE IN CONDITION STILL ON THE VENTILATOR
--- NOTE | 2018-12-18 12:30 | NUR ---
SITTING UP IN BED, O2 BY THE VENTILATOR NO COMPLAINTS OF PAIN, LOOKING TOWARDS THE WINDOW
--- NOTE | 2018-12-18 13:30 | NUR ---
NO CHANGE IN CONDITION, LOOKING TOWARDS THE WINDOW
[2018-12-18] MEDS: Jevity 1.2 Cal/Fiber 1 Liter GT SCH (14:30)
--- NOTE | 2018-12-18 14:30 | NUR ---
MOVING HER RT ARM UP AND DOWN ASK HER IF SHE WAS EXERCISING AND SHE JUST SMILED
--- NOTE | 2018-12-18 15:29 | NUR ---
FEEDING OF JEVITY AT 60ML/HR STILL INFUSING INTO THE PEG TUBE BY THE FEEDING PUMP , NO SIGNS OF PAIN
--- NOTE | 2018-12-18 16:23 | NUR ---
PATIENT SITTING UP IN THE BED WATCHNG TV,
--- NOTE | 2018-12-18 16:45 | NUR ---
DR PRUITT IN TO SEE THE PATIENT AND STATES HE IS GOING TO TALK WITH DR RAMIREZ AND SEE IF HE STILL WANTS THE PATIENT TO HAVE THE BRONCHOSCOPY
--- NOTE | 2018-12-18 17:30 | NUR ---
WATCHING TV, NO COMPLAINTS
--- NOTE | 2018-12-18 18:21 | NUR ---
SITTING UP IN BED, WATCHING TV, A/O TIMES 1 TO SELF, TRYING TO HIT ME WITH HER RT ARM AND SMILING, O2 BY THE VENTILATOR WITH SETTING OF AC12,TV500,PEEP5, [id number]%, SIZE 6 SHILEY TRACH TO THE NECK, ON SPECIALTY BED, NS INFUSING INTO THE CHASE AT 100ML/HR BY THE IV PUMP, SALINE LOCK TO THE RFA 22G PATENT, PEG TUBE TO THE ABD, WITH JEVITY INFUSING BY THE FEEDING PUMP AT 60ML/HR, GIL TO GRAVITY, NO SIGNS OF PAIN , WILL CONTINUE TO MONITOR AND GIVE REPORT TO THE NEXT SHIFT
--- NOTE | 2018-12-18 19:39 | NUR ---
RT NOTE RECEIVED PT TRACHED AND ON VENT V20 ON STATED SETTINGS. VENT IS PLUGGED TO RED OUTLET. ALARMS ARE ON AND AUDIBLE AT NURSES STATION. AMBU BAG AT BEDSIDE AND CONNECTED TO O2 SOURCE. 6.0 SHILEY DFEN IS SECURED WITH TRACH TIES. SPARE TRACH AT BEDSIDE. DRAIN SPONGE APPEARS CLEAN AND DRY AT THIS TIME. BILATERAL BS ARE COARSE. PT WAS SUCTIONED FOR MODERATE RETURN. HHN GIVEN INLINE WITH 2.5 MG ALBUTEROL AND 0.5 MG ATROVENT WITHOUT ADVERSE REACTION NOTED.CONT ORDERED. POX 96% Addendum: 12/18/18 at 205 by Charu Perez RT Amended: Links added.
[2018-12-18] MEDS: VANCOMYCIN 1GM/250ML 250 ML IV SCH (20:00)
--- NOTE | 2018-12-18 20:23 | NUR ---
RT NOTE ROUTINE VENT CHECK DONE. PT TRACHED AND ON VENT V20 ON STATED SETTINGS. VENT IS PLUGGED TO RED OUTLET. ALARMS ARE ON AND AUDIBLE AT NURSES STATION. AMBU BAG AT BEDSIDE AND CONNECTED TO O2 SOURCE. 6.0 SHILEY DFEN IS SECURED WITH TRACH TIES. SPARE TRACH AT BEDSIDE. DRAIN SPONGE APPEARS CLEAN AND DRY AT THIS TIME. CONT ORDERED. POX 95% Addendum: 12/18/18 at 2053 by Charu Perez RT Amended: Links added.
--- NOTE | 2018-12-18 22:37 | NUR ---
RT NOTE ROUTINE VENT CHECK DONE. PT TRACHED AND ON VENT V20 ON STATED SETTINGS. VENT IS PLUGGED TO RED OUTLET. ALARMS ARE ON AND AUDIBLE AT NURSES STATION. AMBU BAG AT BEDSIDE AND CONNECTED TO O2 SOURCE. 6.0 SHILEY DFEN IS SECURED WITH TRACH TIES. SPARE TRACH AT BEDSIDE. DRAIN SPONGE APPEARS CLEAN AND DRY AT THIS TIME. BILATERAL BS ARE COARSE. PT WAS SUCTIONED FOR SMALL RETURN. HHN GIVEN INLINE WITH 2.5 MG ALBUTEROL, 0.5 MG ATROVENT AND 300MG/5ML AVA WITHOUT ADVERSE REACTION NOTED. CONT ORDERED. POX 97% Addendum: 12/18/18 at 2341 by Charu Perez RT Amended: Links added.
[2018-12-19] VITALS (15 sets, daily range): BP systolic 96–145; BP diastolic 49–68
--- NOTE | 2018-12-19 00:24 | NUR ---
RT NOTE ROUTINE VENT CHECK DONE. PT TRACHED AND ON VENT V20 ON STATED SETTINGS. VENT IS PLUGGED TO RED OUTLET. ALARMS ARE ON AND AUDIBLE AT NURSES STATION. AMBU BAG AT BEDSIDE AND CONNECTED TO O2 SOURCE. 6.0 SHILEY DFEN IS SECURED WITH TRACH TIES. SPARE TRACH AT BEDSIDE. DRAIN SPONGE APPEARS CLEAN AND DRY AT THIS TIME. CONT ORDERED. POX 96% Addendum: 12/19/18 at 0120 by Charu Perez RT Amended: Links added.
[2018-12-19] MEDS: FREE WATER GT SCH ×5 (02:00→17:50)
--- NOTE | 2018-12-19 02:31 | NUR ---
RT NOTE ROUTINE VENT CHECK DONE. PT TRACHED AND ON VENT V20 ON STATED SETTINGS. VENT IS PLUGGED TO RED OUTLET. ALARMS ARE ON AND AUDIBLE AT NURSES STATION. AMBU BAG AT BEDSIDE AND CONNECTED TO O2 SOURCE. 6.0 SHILEY DFEN IS SECURED WITH TRACH TIES. SPARE TRACH AT BEDSIDE. HHN GIVEN INLINE WITH 2.5 MG ALBUTEROL AND 0.5 MG ATROVENT WITHOUT ADVERSE REACTION NOTED. PT WAS SUCTIONED FOR SMALL RETURN. TRACH CARE DONE WITHOUT INCIDENT. HME,INLINE SUCTION, T-PIECE AND OMNI FLEX CHANGED WITHOUT INCIDENT. CONT ORDERED. POX 97% Addendum: 12/19/18 at 0337 by Charu Perez RT Amended: Links added.
[2018-12-19] MEDS: IPRATROPIUM BROM 0.5 MG/2.5ML INH SOL NEB SCH ×5 (02:33→18:04)
[2018-12-19] MEDS: ALBUTEROL SULF 2.5 MG/0.5ML(0.5%) NEB SOLN NEB SCH ×5 (02:33→18:04)
[2018-12-19] MEDS: CeftoloZANE-TAZOB 1g/0.5g in D5W 5% 100 ML IV SCH ×2 (04:00→12:18)
--- NOTE | 2018-12-19 04:18 | NUR ---
RT NOTE ROUTINE VENT CHECK DONE. PT TRACHED AND ON VENT V20 ON STATED SETTINGS. VENT IS PLUGGED TO RED OUTLET. ALARMS ARE ON AND AUDIBLE AT NURSES STATION. AMBU BAG AT BEDSIDE AND CONNECTED TO O2 SOURCE. 6.0 SHILEY DFEN IS SECURED WITH TRACH TIES. SPARE TRACH AT BEDSIDE. TRACH CARE DONE WITHOUT INCIDENT. CONT ORDERED. POX 97% Addendum: 12/19/18 at 0418 by Charu Perez RT Amended: Links added.
--- NOTE | 2018-12-19 05:36 | NUR ---
PROVIDED CHG WIPE BATH WITH FULL LINEN CHANGE; PT. TOLERATED WELL.
[2018-12-19 05:49] LABS: Basophils # (auto) 0.1 uL; Eosinophils # (auto) 0.3 uL; Eosinophils % (auto) 3.5 % (0.0-7.0); Hemoglobin 9.3 g/dL (12.2-16.2); Monocytes # (auto) 0.6 uL; Neutrophils % (auto) 74.6 % (37.0-80.0)
[2018-12-19 05:51] LABS: Basophils % (auto) 1.3 % (0.0-2.0); Hematocrit 29.4 % (36.0-46.0); Lymphocytes % (auto) 13.1 % (10.0-50.0); Mean Corpuscular Hemoglobin 23.2 pg (28.0-32.0); Mean Corpuscular Hgb Conc. 31.6 g/dL (32.0-36.0); Mean Corpuscular Volume 73.6 fL (80.0-100.0); Monocytes % (auto) 7.5 % (0.0-12.0); Neutrophils # (auto) 5.7 uL; Nucleated Red Blood Cells % 0.1 %; Platelet Count (auto) 284 10^3/uL (140-450); White Blood Cell 7.7 10^3/uL (4.4-10.8)
[2018-12-19 05:57] LABS: Red Cell Distribution Width 20.2 % (11.8-14.3)
[2018-12-19] MEDS: TOBRAMYCIN 300 MG/5 ML NEB SOLN NEB SCH ×2 (06:01→18:04)
--- NOTE | 2018-12-19 07:30 | NUR ---
RECEIVED PATIENT SITTING UP IN THE BED, A/O TIMES 1, WHEN WOKEN BY NAME BEING CALLED, HAS SIZE 6 SHILEY TRACH TO THE NECK WHICH IS CONNECTED TO THE VENTILATOR WITH SETTING OF AC12, TV500,PEEP5, FIO2 30%, ON SPECIALTY MATTRESS, GIL TO GRAVITY, PEG TUBE TO THE ABD WITH JEVITY AT 60ML/HR INFUSING BY THE FEEDING PUMP, 22G SALINE LOCK TO THE RFA INTACT, FLUSHED AND PATENT, CHASE MIDLINE WITH NS INFUSING AT 100ML/HR BY THE IV PUMP, DENIES PAIN
--- NOTE | 2018-12-19 08:00 | NUR ---
TURNED TO THE RT SIDE AND HOB UP DENIES PAIN
--- NOTE | 2018-12-19 08:34 | NUR ---
SITTING UP IN THE BED WITH EYES CLOSED, OPEN WHEN YOU WALK INTO THE ROOM
[2018-12-19] MEDS: SODIUM CHLORIDE 0.9% 1,000 ML IV SCH (09:45)
[2018-12-19] MEDS: VANCOMYCIN 1GM/250ML 250 ML IV SCH (09:45)
[2018-12-19] MEDS: FAMOTIDINE (10MG/ML) 2ML VL IV SCH (09:45)
--- NOTE | 2018-12-19 09:45 | NUR ---
EXPLAIN MEDICATIONS TO THE PATIENT REGARDING THE DOSAGE, USAGE AND THE SIDE EFFECTS, JUST POINTED HER FINGER AT ME, MEDS GIVEN ORDERED
--- NOTE | 2018-12-19 10:00 | NUR ---
BREATHING TREATMENT BEING GIVEN
--- NOTE | 2018-12-19 11:00 | NUR ---
FAMILY IN TO VISIT WITH THE PATIENT
--- NOTE | 2018-12-19 11:34 | NUR ---
RT IN THE ROOM TALKING WITH THE FAMILY ABOUT THE PATIENT
--- NOTE | 2018-12-19 12:00 | NUR ---
FAMILY LEFT AND WENT HOME STATES THE PATIENT LIKES TO WATCH THE ANIMAL PLANET ON TV,
--- NOTE | 2018-12-19 13:00 | NUR ---
WATCHING THE ANIMAL CHANNEL ON TV
--- NOTE | 2018-12-19 14:00 | NUR ---
RT IN WITH THE PATIENT DOING TRACH TREATMENT
--- NOTE | 2018-12-19 14:22 | NUR ---
Respiratory note: Trach care done, pt tolerated well, no adverse reactions noted. Suctioned moderate amount thin white secretions. Pt resting comfortably in bed, watching tv, no s/s of respiratory distress.
--- NOTE | 2018-12-19 14:33 | NUR ---
CALLED SISTER IN [employer] AND MADE AWARE THAT DR RAMIREZ WROTE AN ORDER FOR THE PATIENT TO BE DISCHARGED BACK TO [facility]
--- NOTE | 2018-12-19 15:10 | NUR ---
called and gave report to Rene GARCIA at [facility]
--- NOTE | 2018-12-19 15:15 | NUR ---
DR RAMIREZ IN TO SEE THE PATIENT AND STATED TO LEAVE IN THE MIDLINE AND THE GIL
--- NOTE | 2018-12-19 15:53 | NUR ---
re-assessment Per ss consult discharge back to residential [facility]. Per Hortencia at [facility] patient is clear to return to her room 2. Laney Arzola RN has been notified to call report. [facility] [address] [place], [place]. [phone] . Per Wendie at [facility] [phone] CCT/RT rig will transport patient around 8pm and if they can it will be sooner. Laney GOODSON notified. Addendum: 12/19/18 at 1611 by Rosemary DURANT Amended: Links added.
--- NOTE | 2018-12-19 16:00 | NUR ---
PATIENT SITTING UP IN BED WATCHING ON AND OFF
--- NOTE | 2018-12-19 17:00 | NUR ---
DISCHARGE PHOTOS TAKEN
--- NOTE | 2018-12-19 17:27 | NUR ---
PATIENT SITTING UP IN BED WITH EYES CLOSED
--- NOTE | 2018-12-19 18:10 | NUR ---
BREATHING TREATMENT BEING GIVEN, CALLED [facility] AND MADE THEM AWARE THAT SHE MAY NOT BE THERE UNTIL 1999
--- NOTE | 2018-12-19 18:36 | NUR ---
SITTING UP IN BED WITH EYES OPEN LOOKING TOWARDS THE TV, O2 BY THE VENTILATOR WITH SAME SETTING AM ASSESSMENT, TRACH SIZE 6 SHILEY TO THE NECK, GIL TO GRAVITY, NS AT 100ML/HR INFUSING INTO THE CHASE MIDLINE BY THE IV PUMP, PEG TUBE TO THE ABD WITH JEVITY INFUSING AT 60ML/HR BY THE FEEDING PUMP, ON SPECIALTY BED, WILL CONTINUE TO MONITOR AND GIVE REPORT TO THE NEXT SHIFT
--- NOTE | 2018-12-19 18:53 | NUR ---
REMOVED 22G SALINE LOCK FROM THE RFA INTACT
--- NOTE | 2018-12-19 19:38 | NUR ---
Patient vital signs within normal limits. No signs of sob. No signs of cp. Patient vital signs within normal limits per hospital policy and standard. Transport at bedside. Full report given to accepting transportation agent. Patient to be transported to [facility]. Patient accepting rn at facility provided full report per day shift report. All patient belongings are with patient. Patient trach intact. Patient midline intact. Patient taylor intact and requesting to go with patient to accepting facility.
== END 2018-12-19 19:45 | DRG 870 ==
LOC: EDBD 09:22 → ER 09:22 → OVERFLOW 09:23 → DOU IN ICU 23:02
PROVIDERS: ADMIT Nurse Practitioner Acute Care; ATTEND Internal Medicine Cardiovascular Disease
PROC: 5A1955Z Respiratory Ventilation, Greater than 96 Consecutive Hours (ICD-10-PCS; 2018-12-13)
PROC: 0BH17EZ Insertion of Endotracheal Airway into Trachea, Via Natural or Artificial Opening (ICD-10-PCS; 2018-12-13)
PROC: 0BJ08ZZ Inspection of Tracheobronchial Tree, Via Natural or Artificial Opening Endoscopic (ICD-10-PCS; 2018-12-14)
PROC: 05HY33Z Insertion of Infusion Device into Upper Vein, Percutaneous Approach (ICD-10-PCS; 2018-12-14)
PROC: 0BJ08ZZ Inspection of Tracheobronchial Tree, Via Natural or Artificial Opening Endoscopic (ICD-10-PCS; 2018-12-17)
PROC: 0B21XFZ Change Tracheostomy Device in Trachea, External Approach (ICD-10-PCS; principal; 2018-12-17 13:45)
DX: A41.9 Sepsis, unspecified organism (principal); J15.1 Pneumonia due to Pseudomonas; J96.21 Acute and chronic respiratory failure with hypoxia; J69.0 Pneumonitis due to inhalation of food and vomit; G82.50 Quadriplegia, unspecified; G93.41 Metabolic encephalopathy; E43 Unspecified severe protein-calorie malnutrition; Z99.11 Dependence on respirator [ventilator] status; I50.22 Chronic systolic (congestive) heart failure; K62.5 Hemorrhage of anus and rectum; Z68.43 Body mass index [BMI] 50.0-59.9, adult; D68.59 Other primary thrombophilia; N39.0 Urinary tract infection, site not specified; N17.9 Acute kidney failure, unspecified; G35 Multiple sclerosis; I11.0 Hypertensive heart disease with heart failure; G40.909 Epilepsy, unspecified, not intractable, without status epilepticus; I48.91 Unspecified atrial fibrillation; E86.0 Dehydration; J98.09 Other diseases of bronchus, not elsewhere classified; E78.5 Hyperlipidemia, unspecified; J39.8 Other specified diseases of upper respiratory tract; K21.9 Gastro-esophageal reflux disease without esophagitis; Z53.9 Procedure and treatment not carried out, unspecified reason; Z16.30 Resistance to unspecified antimicrobial drugs; Z88.5 Allergy status to narcotic agent; Z88.2 Allergy status to sulfonamides; Z91.040 Latex allergy status; Z90.49 Acquired absence of other specified parts of digestive tract; Z79.01 Long term (current) use of anticoagulants; Z82.49 Family history of ischemic heart disease and other diseases of the circulatory system; Z93.0 Tracheostomy status
CPT/HCPCS: 31622; 36415; 36600; 71045; 74176; 80048; 80053; 80202; 81001; 82270; 82805; 83605; 83735; 84484; 85025; 85610; 85730; 87040; 87070; 87077; 87081; 87086; 87186; 87205; 93005; 94002; 94003; 94640; 94668; 96365; 96367; 96375; A4605; G0378; J0171; J2185; J2250; J2543; J3490; J7060

== ENCOUNTER 2019-01-08 23:23 | Emergency (ER) | payer MEDICARE, MEDICAID ==
[~2019-01-08] VITALS: Ht 160 cm; Wt 81.6 kg
[2019-01-08 23:40] VITALS: BP 118/45
[2019-01-09] VITALS (14 sets, daily range): BP systolic 102–147; BP diastolic 29–78
[2019-01-09 00:18] LABS: Hemoglobin 7.5 g/dL (12.2-16.2); Monocytes # (auto) 0.4 uL
[2019-01-09 00:19] LABS: Basophils # (auto) 0.1 uL; Basophils % (auto) 0.8 % (0.0-2.0); Eosinophils # (auto) 0.5 uL; Eosinophils % (auto) 6.2 % (0.0-7.0); Hematocrit 24.4 % (36.0-46.0); Lymphocytes # (auto) 0.9 uL; Lymphocytes % (auto) 12.1 % (10.0-50.0); Mean Corpuscular Hemoglobin 22.4 pg (28.0-32.0); Mean Corpuscular Hgb Conc. 30.5 g/dL (32.0-36.0); Mean Corpuscular Volume 73.4 fL (80.0-100.0); Monocytes % (auto) 4.9 % (0.0-12.0); Neutrophils # (auto) 5.7 uL; Platelet Count (auto) 217 10^3/uL (140-450); Red Blood Cells 3.33 10^6/uL (4.0-5.20); White Blood Cell 7.5 10^3/uL (4.4-10.8)
[2019-01-09 00:23] LABS: Red Cell Distribution Width 21.1 % (11.8-14.3)
[2019-01-09 00:35] LABS: Albumin 2.1 g/dL (3.4-5.0); BUN/Creatinine Ratio 37.8; Calcium 7.9 mg/dL (8.5-10.1); Potassium 3.2 mmol/L (3.5-5.1)
[2019-01-09 00:41] LABS: Bilirubin, Total 0.3 mg/dL (0.2-1.0)
[2019-01-09 01:38] LABS: INR 1.16 (0.9-1.15); Partial Thromboplastin Time 23.7 sec (23.64-32.05)
[2019-01-09] MEDS ORDERED: SODIUM CHLORIDE 0.9% 500 ML IV ONE (03:30)
[2019-01-09 04:28] LABS: Urine Bacteria MOD /hpf (None Seen); Urine Blood 3+ /uL (Negative); Urine Mucus FEW (None Seen); Urine Specific Gravity 1.019 (1.001-1.035); Urine WBC 154 /hpf (0 - 5); Urine WBC Clumps PRESENT /hpf (None Seen)
[2019-01-09] MEDS ORDERED: IOHEXOL 350 MG/ML 100ML IJ ONE (06:44)
[2019-01-09] MEDS ORDERED: LIDOCAINE 1% HCL (LOCAL ANESTH.) INJ 20ML MDV ONE (21:06)
[2019-01-09] MEDS ORDERED: cefTRIAXone SOD 1,000 MG VL IM ONE (21:15)
== END 2019-01-09 21:24 | disposition home or self-care (01) ==
LOC: EDBD 23:23 → ER 23:30
DX: J18.9 Pneumonia, unspecified organism (principal); R41.82 Altered mental status, unspecified; N39.0 Urinary tract infection, site not specified; J44.9 Chronic obstructive pulmonary disease, unspecified; E87.6 Hypokalemia; D53.9 Nutritional anemia, unspecified; R79.1 Abnormal coagulation profile; I11.0 Hypertensive heart disease with heart failure; I50.9 Heart failure, unspecified; Z90.49 Acquired absence of other specified parts of digestive tract; Z88.6 Allergy status to analgesic agent; Z88.2 Allergy status to sulfonamides; Z79.899 Other long term (current) drug therapy
CPT/HCPCS: 36415; 36430; 36600; 70450; 71045; 71275; 80053; 81001; 82553; 82805; 83605; 83880; 84484; 85025; 85379; 85384; 85610; 85730; 86850; 86870; 86900; 86901; 86920; 87040; 87070; 87077; 87086; 87186; 87205; 96360; 96361; 99285; J7040; P9016; 86922; 94002